=== PATIENT | female | born 1950 | race Caucasian/White ===

== ENCOUNTER → 2017-01-19 | Outpatient (REF) | payer OTHER, MEDICAID ==
[~2017-01-19] MED LIST: ACCU40TA PO; ADV100INH INH; AMBI10TA PO; AMLO10TA PO; BISO10TA PO; CALC500T21 PO; EVIS1TAB PO; FERR325T3 PO; FOLI400T PO; HYDR-3363 PO; HYDR-3716 PO; HYDR25TAB PO; LIPI20TA PO; LOMO2.5T PO; METF500T13 PO; NEXI40CA PO; PAXI40TA10 PO; POTA20TA PO; SERO50TA PO; SYNT50TA PO; TRAV04OPD OD; TRUS1SOL OU; VITA10002 PO; VITA2000 PO
[2017-01-19 16:15] LABS: BASO % 0.4 % (0.0-1.0); EOS # 0.2 10^3/uL (0.0-0.50); EOS % 3.1 % (0.0-3.0); IMMATURE GRANULOCYTE % 0.3 % (0-0); LYMPH # 2.1 10^3/uL (1.5-4.5); LYMPH % 27.9 % (24.0-44.0); MEAN CORPUSCULAR HEMOGLOBIN 26.6 pg (27.0-33.0); MEAN CORPUSCULAR HGB CONC 31.2 g/dl (32.0-36.5); MEAN CORPUSCULAR VOLUME 85.4 fl (80.0-96.0); MONO # 0.6 10^3/uL (0.0-0.8); MONO % 7.8 % (0.0-5.0); NEUTROPHILS # 4.6 10^3/uL (1.8-7.7); NEUTROPHILS % 60.5 % (36.0-66.0); PLATELET COUNT, AUTOMATED 238 10^3/uL (150-450); RED CELL DISTRIBUTION WIDTH 15.2 % (11.5-14.5); WHITE BLOOD COUNT 7.5 10^3/uL (4.0-10.0)
[2017-01-19 16:33] LABS: ALBUMIN 3.6 GM/DL (3.2-5.2); ALBUMIN/GLOBULIN RATIO 0.92 (1.00-1.93); ALKALINE PHOSPHATASE 106 U/L (45-117); ALT/SGPT 15 U/L (12-78); ANION GAP 6 MEQ/L (8-16); AST/SGOT 10 U/L (15-37); BILIRUBIN,TOTAL 0.2 MG/DL (0.2-1.0); BLOOD UREA NITROGEN 15 MG/DL (7-18); CALCIUM LEVEL 9.3 MG/DL (8.8-10.2); CARBON DIOXIDE LEVEL 28 MEQ/L (21-32); CHLORIDE LEVEL 105 MEQ/L (98-107); CHOLESTEROL LEVEL 169 MG/DL (<200); CREATININE FOR GFR 0.75 MG/DL (0.55-1.02); FERRITIN 12 NG/ML (8-252); FREE T4 0.89 NG/DL (0.76-1.46); GLOMERULAR FILTRATION RATE > 60.0 (>45); GLUCOSE, FASTING 94 MG/DL (80-110); PERCENT SATURATION 8.2 % (13.2-45.0); POTASSIUM SERUM 4.3 MEQ/L (3.5-5.1); SODIUM LEVEL 139 MEQ/L (136-145); TOTAL IRON BINDING CAPACITY 390 UG/DL (250-450); TOTAL PROTEIN 7.5 GM/DL (6.4-8.2); TRIGLYCERIDES LEVEL 117 MG/DL (<150)
== END ==
LOC: M SFHCPLAZ 13:07
PROVIDERS: ATTEND Family Medicine
DX: E11.9 Type 2 diabetes mellitus without complications (principal); D50.9 Iron deficiency anemia, unspecified; E03.9 Hypothyroidism, unspecified
CPT/HCPCS: 80053; 80061; 82550; 82728; 83036; 83550; 84439; 84443; 85025; 86140; G0463

== ENCOUNTER → 2017-02-17 | Outpatient (CLI) | payer OTHER, MEDICAID ==
--- NOTE | 2017-02-17 15:32 | REPMRS ---
Patient History The patient states she has not had a clinical breast exam in over a year. Patient is postmenopausal and is nulliparous. Family history of breast cancer in sister and ovarian cancer in paternal aunt. Digital Woman Screen Mammo: February 17, 2017 - Exam #: [id number] Bilateral CC and MLO view(s) were taken. Technologist: Riri Parrish, Technologist Prior study comparison: November 11, 2015, digital woman screen mammo performed at [facility] to [facility]. October 31, 2014, digital woman screen mammo performed at [facility]. FINDINGS: The breast tissue is almost entirely fat. There has been no change in the appearance of the mammogram from the prior studies. There is no interval development of dominant mass, architectural distortion, or clustered microcalcification typical of malignancy. ASSESSMENT: BI-RADS/ACR category 1 mammogram. Negative. Recommendation Routine screening mammogram of both breasts in 1 year (for women over age 40). This mammogram was interpreted with the aid of an FDA-approved computer-aided dectection system. Electronically Signed By: Juan Carlos Jacques MD 02/17/17 [id number]
== END ==
LOC: M WHC 13:35
PROVIDERS: ATTEND Family Medicine
DX: Z12.31 Encounter for screening mammogram for malignant neoplasm of breast (principal)

== ENCOUNTER → 2017-05-05 | Outpatient (CLI) | payer OTHER, MEDICAID | LOC: M PLARAD 10:51 | DX: M47.22 Other spondylosis with radiculopathy, cervical region (principal) | CPT/HCPCS: 72141 ==

== ENCOUNTER → 2017-06-05 | Outpatient (REF) | payer OTHER, MEDICAID ==
[2017-06-05 15:51] LABS: BASO % 0.5 % (0.0-1.0); EOS # 0.2 10^3/uL (0.0-0.50); EOS % 2.3 % (0.0-3.0); HEMATOCRIT 32.6 % (36.0-47.0); HEMOGLOBIN 10.2 g/dl (12.0-16.0); IMMATURE GRANULOCYTE % 0.4 % (0-3.0); LYMPH # 2.1 10^3/uL (1.5-4.5); LYMPH % 26.5 % (24.0-44.0); MEAN CORPUSCULAR HEMOGLOBIN 26.3 pg (27.0-33.0); MEAN CORPUSCULAR HGB CONC 31.3 g/dl (32.0-36.5); MONO # 0.5 10^3/uL (0.0-0.8); MONO % 6.7 % (0.0-5.0); NEUTROPHILS # 5.1 10^3/uL (1.8-7.7); NEUTROPHILS % 63.6 % (36.0-66.0); PLATELET COUNT, AUTOMATED 245 10^3/uL (150-450); RED BLOOD COUNT 3.88 10^6/uL (4.00-5.40); RED CELL DISTRIBUTION WIDTH 15.9 % (11.5-14.5); RETIC HEMOGLOBIN EQUIVALENT 28.3 pg (24-36); RETICULOCYTE # 81.1 10^9/L (17-77); RETICULOCYTE % 2.1 % (0.5-1.5)
[2017-06-05 16:12] LABS: ALBUMIN 3.8 GM/DL (3.2-5.2); ALBUMIN/GLOBULIN RATIO 0.93 (1.00-1.93); ALKALINE PHOSPHATASE 95 U/L (45-117); ALT/SGPT 15 U/L (12-78); ANION GAP 8 MEQ/L (8-16); AST/SGOT 12 U/L (7-37); BILIRUBIN,TOTAL 0.3 MG/DL (0.2-1.0); BLOOD UREA NITROGEN 22 MG/DL (7-18); CALCIUM LEVEL 9.2 MG/DL (8.8-10.2); CARBON DIOXIDE LEVEL 31 MEQ/L (21-32); CHLORIDE LEVEL 101 MEQ/L (98-107); CREATININE FOR GFR 0.87 MG/DL (0.55-1.30); GLOMERULAR FILTRATION RATE > 60.0 (>45); GLUCOSE, FASTING 101 MG/DL (70-100); POTASSIUM SERUM 4.4 MEQ/L (3.5-5.1); SODIUM LEVEL 140 MEQ/L (136-145); TOTAL PROTEIN 7.9 GM/DL (6.4-8.2)
[2017-06-05 16:16] LABS: PTH INTACT 61.7 PG/ML (18.5-88.0)
[2017-06-05 16:22] LABS: ESTIMATED AVERAGE GLUCOSE 137 MG/DL (60-110); HEMOGLOBIN A1c 6.4 %
== END ==
LOC: M SFHCPLAZ 12:14
DX: E55.9 Vitamin D deficiency, unspecified (principal); E11.9 Type 2 diabetes mellitus without complications; D50.9 Iron deficiency anemia, unspecified
CPT/HCPCS: 80053

== ENCOUNTER → 2017-07-26 | Outpatient (REF) | payer OTHER, MEDICAID ==
[2017-07-26 18:49] LABS: BASO % 0.3 % (0.0-1.0); EOS # 0.3 10^3/uL (0.0-0.50); EOS % 2.6 % (0.0-3.0); HEMATOCRIT 32.2 % (36.0-47.0); LYMPH # 1.8 10^3/uL (1.5-4.5); LYMPH % 17.8 % (24.0-44.0); MEAN CORPUSCULAR HEMOGLOBIN 25.7 pg (27.0-33.0); MEAN CORPUSCULAR HGB CONC 31.1 g/dl (32.0-36.5); MEAN CORPUSCULAR VOLUME 82.8 fl (80.0-96.0); MONO # 0.5 10^3/uL (0.0-0.8); MONO % 5.2 % (0.0-5.0); NEUTROPHILS # 7.3 10^3/uL (1.8-7.7); NEUTROPHILS % 73.1 % (36.0-66.0); PLATELET COUNT, AUTOMATED 267 10^3/uL (150-450); RED BLOOD COUNT 3.89 10^6/uL (4.00-5.40); RED CELL DISTRIBUTION WIDTH 15.5 % (11.5-14.5)
[2017-07-26 18:50] LABS: ALBUMIN 3.7 GM/DL (3.2-5.2); ALKALINE PHOSPHATASE 88 U/L (45-117); ALT/SGPT 21 U/L (12-78); ANION GAP 7 MEQ/L (8-16); AST/SGOT 13 U/L (7-37); BILIRUBIN,TOTAL 0.3 MG/DL (0.2-1.0); BLOOD UREA NITROGEN 16 MG/DL (7-18); CALCIUM LEVEL 8.7 MG/DL (8.8-10.2); CARBON DIOXIDE LEVEL 30 MEQ/L (21-32); CHLORIDE LEVEL 103 MEQ/L (98-107); GLOMERULAR FILTRATION RATE > 60.0 (>45); GLUCOSE, FASTING 109 MG/DL (70-100); POTASSIUM SERUM 4.2 MEQ/L (3.5-5.1); RHEUMATOID FACTOR QUANT < 10.0 IU/ML (<15.0); SODIUM LEVEL 140 MEQ/L (136-145); TOTAL PROTEIN 7.8 GM/DL (6.4-8.2)
[2017-07-26 20:09] LABS: ESTIMATED AVERAGE GLUCOSE 140 MG/DL (60-110); HEMOGLOBIN A1c 6.5 %
[2017-07-26 20:59] LABS: ERYTHROCYTE SEDIMENTATION RATE 65 mm/hr (0-30)
[2017-07-27 10:14] LABS: ALBUMIN 3.85 GM/DL (3.29-5.55); ALBUMIN % 49.3 % (55.8-66.1); ALPHA-1-GLOBULIN % 5.9 % (2.9-4.9); ALPHA-1-GLOBULINS 0.46 GM/DL (0.17-0.41); ALPHA-2-GLOBULINS % 15.4 % (7.1-11.8); BETA-1-GLOBULINS 0.53 GM/DL (0.28-0.60); BETA-1-GLOBULINS % 6.8 % (4.7-7.2); BETA-2-GLOBULINS % 6.4 % (3.2-6.5); GAMMA GLOBULIN % 16.2 % (11.1-18.8); GAMMA GLOBULINS 1.26 GM/DL (0.65-1.58)
[2017-07-28 08:02] LABS: VITAMIN B12 LEVEL 313 PG/ML
[2017-07-28 08:03] LABS: FOLATE 10.5 NG/ML
[2017-07-29 00:07] LABS: ANGIOTENSIN 1 CONVERTING ENZYM 41 U/L (14-82); ANTI DOUBLE STRAND-DNA AB <1 IU/mL (0-9); ANTINUCLEAR ANTIBODIES DIRECT Negative (Negative); Lyme Disease IgG/IgM Antibodie <0.91 ISR (0.00-0.90); Lyme Disease IgM Ab Quantitati <0.80 index (0.00-0.79); SJOGREN'S ANTI SS-A <0.2 AI (0.0-0.9); SJOGREN'S ANTI SS-B <0.2 AI (0.0-0.9)
== END ==
LOC: M LABNEURO 11:29
DX: G62.9 Polyneuropathy, unspecified (principal); Z79.899 Other long term (current) drug therapy
CPT/HCPCS: 82746

== ENCOUNTER → 2017-10-02 | Outpatient (REF) | payer OTHER, MEDICAID ==
[2017-10-02 16:13] LABS: BASO % 0.3 % (0.0-1.0); EOS # 0.3 10^3/uL (0.0-0.50); EOS % 3.7 % (0.0-3.0); HEMATOCRIT 30.8 % (36.0-47.0); HEMOGLOBIN 9.5 g/dl (12.0-15.5); IMMATURE GRANULOCYTE % 0.5 % (0-3.0); LYMPH # 2.1 10^3/uL (1.5-4.5); LYMPH % 29.4 % (24.0-44.0); MEAN CORPUSCULAR HEMOGLOBIN 25.3 pg (27.0-33.0); MEAN CORPUSCULAR HGB CONC 30.8 g/dl (32.0-36.5); MEAN CORPUSCULAR VOLUME 81.9 fl (80.0-96.0); MONO # 0.5 10^3/uL (0.0-0.8); NEUTROPHILS # 4.3 10^3/uL (1.8-7.7); NEUTROPHILS % 59.1 % (36.0-66.0); PLATELET COUNT, AUTOMATED 247 10^3/uL (150-450); RED BLOOD COUNT 3.76 10^6/uL (4.00-5.40); RED CELL DISTRIBUTION WIDTH 16.3 % (11.5-14.5); RETIC HEMOGLOBIN EQUIVALENT 25.8 pg (24-36); RETICULOCYTE # 71.4 10^9/L (17-77); RETICULOCYTE % 1.9 % (0.5-1.5); WHITE BLOOD COUNT 7.3 10^3/uL (4.0-10.0)
[2017-10-02 16:27] LABS: HEMATOCRIT 30.8 % (36.0-47.0)
[2017-10-02 16:29] LABS: ESTIMATED AVERAGE GLUCOSE 146 MG/DL (60-110); HEMOGLOBIN A1c 6.7 %; PTH INTACT 54.6 PG/ML (18.5-88.0); TOTAL 25(OH) VITAMIN D 17.3 NG/ML (30.0-100.0); VITAMIN B12 LEVEL 383 PG/ML (247-911)
[2017-10-02 16:38] LABS: ALBUMIN 3.5 GM/DL (3.2-5.2); ALBUMIN/GLOBULIN RATIO 0.85 (1.00-1.93); ALKALINE PHOSPHATASE 95 U/L (45-117); ALT/SGPT 16 U/L (12-78); ANION GAP 7 MEQ/L (8-16); AST/SGOT 14 U/L (7-37); BILIRUBIN,TOTAL 0.3 MG/DL (0.2-1.0); BLOOD UREA NITROGEN 14 MG/DL (7-18); C REACTIVE PROTEIN QUANTITATIV < 0.30 MG/DL (0.00-0.30); CALCIUM LEVEL 8.8 MG/DL (8.8-10.2); CARBON DIOXIDE LEVEL 31 MEQ/L (21-32); CHLORIDE LEVEL 104 MEQ/L (98-107); CHOLESTEROL LEVEL 169 MG/DL (<200); CPK CREATINE PHOSPHOKINASE 258 U/L (26-192); CREATININE FOR GFR 0.82 MG/DL (0.55-1.30); FREE T4 0.81 NG/DL (0.76-1.46); GLOMERULAR FILTRATION RATE > 60.0 (>45); GLUCOSE, FASTING 89 MG/DL (70-100); HDL CHOLESTEROL 71 MG/DL (>40); LDL CHOLESTEROL 69.8 MG/DL (<100); NON-HDL-C 98 MG/DL; POTASSIUM SERUM 4.5 MEQ/L (3.5-5.1); SODIUM LEVEL 142 MEQ/L (136-145); TOTAL PROTEIN 7.6 GM/DL (6.4-8.2); TRIGLYCERIDES LEVEL 141 MG/DL (<150)
[2017-10-03 10:15] LABS: PRETREATED FOLATE FOR RBCFOL 7.7 NG/ML
[2017-10-04 14:47] LABS: INSULIN LEVEL 12.9 uIU/mL (2.6-24.9)
== END ==
LOC: M SFHCPLAZ 11:28
DX: E03.9 Hypothyroidism, unspecified (principal); E11.9 Type 2 diabetes mellitus without complications; E55.9 Vitamin D deficiency, unspecified; E78.5 Hyperlipidemia, unspecified; D50.9 Iron deficiency anemia, unspecified; E53.8 Deficiency of other specified B group vitamins; Z79.899 Other long term (current) drug therapy
CPT/HCPCS: 82550

== ENCOUNTER → 2017-10-17 | Outpatient (CLI) | payer OTHER, MEDICAID ==
[~2017-10-17] MED LIST changes: -ACCU40TA PO; -ADV100INH INH; -AMBI10TA PO; -AMLO10TA PO; -BISO10TA PO; -CALC500T21 PO; -EVIS1TAB PO; -FERR325T3 PO; -FOLI400T PO; -HYDR-3363 PO; -HYDR-3716 PO; -HYDR25TAB PO; -LIPI20TA PO; -LOMO2.5T PO; -METF500T13 PO; +MIDAZOLAM INJ 2 MG/2 ML VIAL (J2250) As Ordered; -NEXI40CA PO; -PAXI40TA10 PO; -POTA20TA PO; -SERO50TA PO; -SYNT50TA PO; -TRAV04OPD OD; -TRUS1SOL OU; -VITA10002 PO; -VITA2000 PO; +fentaNYL 100 MCG/2 ML INJECTION (J3010) As Ordered
[2017-10-17] MEDS: hydroCHLOROthiazide 25 MG TAB PO (11:00)
[2017-10-17] MEDS: BISOPROLOL FUMARATE 5 MG TAB PO (11:00)
== END ==
LOC: M SDC 08:59
DX: M48.02 Spinal stenosis, cervical region (principal)
CPT/HCPCS: J2250

== ENCOUNTER 2017-12-22 14:20 | Inpatient (IN) | payer OTHER, MEDICAID ==
[2017-12-22 15:27] LABS: BASO % 0.1 % (0.0-1.0); HEMATOCRIT 28.1 % (36.0-47.0); IMMATURE GRANULOCYTE % 1.1 % (0-3.0); LYMPH # 1.2 10^3/uL (1.5-4.5); LYMPH % 9.2 % (24.0-44.0); MEAN CORPUSCULAR HEMOGLOBIN 25.7 pg (27.0-33.0); MEAN CORPUSCULAR VOLUME 80.3 fl (80.0-96.0); MONO # 1.1 10^3/uL (0.0-0.8); MONO % 8.1 % (0.0-5.0); NEUTROPHILS # 10.8 10^3/uL (1.8-7.7); NEUTROPHILS % 81.5 % (36.0-66.0); PLATELET COUNT, AUTOMATED 207 10^3/uL (150-450); RED CELL DISTRIBUTION WIDTH 16.6 % (11.5-14.5); WHITE BLOOD COUNT 13.3 10^3/uL (4.0-10.0)
[2017-12-22 15:55] LABS: LACTIC ACID SEPSIS PROTOCOL 1.3 MMOL/L (0.4-2.0)
[2017-12-22 15:55] LABS: ALBUMIN 3.4 GM/DL (3.2-5.2); ALBUMIN/GLOBULIN RATIO 0.79 (1.00-1.93); ALKALINE PHOSPHATASE 78 U/L (45-117); ALT/SGPT 23 U/L (12-78); ANION GAP 10 MEQ/L (8-16); AST/SGOT 42 U/L (7-37); BILIRUBIN,DIRECT 0.1 MG/DL (0.0-0.2); BILIRUBIN,TOTAL 0.5 MG/DL (0.2-1.0); BLOOD UREA NITROGEN 16 MG/DL (7-18); CALCIUM LEVEL 8.8 MG/DL (8.8-10.2); CARBON DIOXIDE LEVEL 25 MEQ/L (21-32); CHLORIDE LEVEL 100 MEQ/L (98-107); CREATININE FOR GFR 0.92 MG/DL (0.55-1.30); GLOMERULAR FILTRATION RATE > 60.0 (>45); GLUCOSE, FASTING 115 MG/DL (70-100); POTASSIUM SERUM 3.7 MEQ/L (3.5-5.1); SODIUM LEVEL 135 MEQ/L (136-145); TOTAL PROTEIN 7.7 GM/DL (6.4-8.2)
[2017-12-22] MEDS: VANCOMYCIN HCL 1,000 MG, VIAL MATE ADAPTER 1 EACH in D5W 250 ML IV (18:30)
[2017-12-22 19:24] LABS: ERYTHROCYTE SEDIMENTATION RATE 119 mm/hr (0-30)
[2017-12-22] MEDS ORDERED: GLUCAGON FOR INJ 1 MG VIAL (J1610) SC (20:00)
[2017-12-22] MEDS ORDERED: DEXTROSE 50% 50 ML SYRINGE IV (20:00)
[2017-12-22] MEDS ORDERED: GLUCOSE 4 GM CHEW TABLET PO (20:00)
[2017-12-22] MEDS ORDERED: PILL CRUSHER/CUTTER 1 EACH XX (20:15)
[2017-12-22] MEDS: ANEXSIA, NORCO 7.5MG/325MG TABLET(HYDROCODONE/APAP) PO (21:51)
[2017-12-22 22:29] LABS: BEDSIDE GLUCOSE 126 MG/DL (80-115)
[2017-12-22] MEDS: zolPIDEM TARTRATE 10MG TAB PO (23:33)
[2017-12-22] MEDS: amLODIPine 10 MG TAB PO (23:33)
[2017-12-22] MEDS: BISOPROLOL FUMARATE 10 MG TAB PO (23:34)
[2017-12-22] MEDS: hydrOXYzine 25 MG TAB PO (23:34)
[2017-12-22] MEDS: CALCIUM CARBONATE 500 MG CHEW U/D PO (23:34)
[2017-12-22] MEDS: ATORVASTATIN 20 MG TAB PO (23:34)
[2017-12-22] MEDS: QUEtiapine FUMARATE 50 MG TAB PO (23:34)
[2017-12-22] MEDS: LATANOPROST 0.005% OPHTH SOLN 2.5 ML OU (23:35)
[2017-12-22] MEDS: QUINAPRIL 20 MG TAB PO (23:35)
[2017-12-23] MEDS ORDERED: GLUCAGON FOR INJ 1 MG VIAL (J1610) SC (00:30)
[2017-12-23] MEDS ORDERED: GLUCOSE 4 GM CHEW TABLET PO (00:30)
[2017-12-23] MEDS ORDERED: DEXTROSE 50% 50 ML SYRINGE IV (00:30)
[2017-12-23] MEDS: ceFAZolin SOD 1 GM in D5W MINI-BAG PLUS 50 ML IV ×3 (01:55→18:23)
[2017-12-23] MEDS: NYSTATIN 100,000 UNITS/GM TOPICAL PWD 15 GM TOP ×3 (02:55→22:13)
[2017-12-23] MEDS: LEVOTHYROXINE 50MCG TABLET (0.05MG) PO (06:01)
[2017-12-23 07:01] LABS: HEMATOCRIT 27.8 % (36.0-47.0); HEMOGLOBIN 8.8 g/dl (12.0-15.5); MEAN CORPUSCULAR HEMOGLOBIN 25.4 pg (27.0-33.0); MEAN CORPUSCULAR HGB CONC 31.7 g/dl (32.0-36.5); MEAN CORPUSCULAR VOLUME 80.1 fl (80.0-96.0); PLATELET COUNT, AUTOMATED 181 10^3/uL (150-450); RED BLOOD COUNT 3.47 10^6/uL (4.00-5.40); RED CELL DISTRIBUTION WIDTH 16.8 % (11.5-14.5); WHITE BLOOD COUNT 10.5 10^3/uL (4.0-10.0)
[2017-12-23 07:12] LABS: ANION GAP 9 MEQ/L (8-16); BLOOD UREA NITROGEN 16 MG/DL (7-18); CALCIUM LEVEL 8.2 MG/DL (8.8-10.2); CARBON DIOXIDE LEVEL 24 MEQ/L (21-32); CHLORIDE LEVEL 102 MEQ/L (98-107); CREATININE FOR GFR 0.98 MG/DL (0.55-1.30); GLOMERULAR FILTRATION RATE > 60.0 (>45); GLUCOSE, FASTING 89 MG/DL (70-100); POTASSIUM SERUM 3.5 MEQ/L (3.5-5.1); SODIUM LEVEL 135 MEQ/L (136-145)
[2017-12-23] MEDS ORDERED: HumaLOG INSULIN (NovoLOG) PER UNIT SC (07:30)
[2017-12-23] MEDS: HumaLOG INSULIN (NovoLOG) PER UNIT SC ×4 (08:25→21:00)
[2017-12-23] MEDS: PARoxetine 20 MG TAB PO (10:03)
[2017-12-23] MEDS: CALCIUM CARBONATE 500 MG CHEW U/D PO ×3 (10:03→22:11)
[2017-12-23] MEDS: FOLIC ACID 1 MG TAB PO (10:03)
[2017-12-23] MEDS: PANTOPRAZOLE 40MG TAB (PROTONIX) PO (10:03)
[2017-12-23] MEDS: ANEXSIA, NORCO 7.5MG/325MG TABLET(HYDROCODONE/APAP) PO ×2 (10:04→22:12)
[2017-12-23] MEDS: ENOXAPARIN 40 MG/0.4 ML SYRINGE (J1650) SC (10:05)
[2017-12-23] MEDS: PREVNAR 13 VACCINE SYRINGE (CPT CODE:90670) IM (10:06)
[2017-12-23] MEDS: INFLUENZA VIRUS VACCINE HIGH DOSE 0.5 ML SYRINGE (90662) IM (10:07)
[2017-12-23] MEDS: hydroCHLOROthiazide 25 MG TAB PO (10:07)
[2017-12-23] MEDS: FERROUS SULFATE 325MG TAB PO (10:07)
[2017-12-23] MEDS: CYANOCOBALAMIN 500 MCG TAB PO (10:08)
[2017-12-23] MEDS: VITAMIN D 1,000 INTERNATIONAL UNITS TABLET PO (10:08)
[2017-12-23 11:50] LABS: BEDSIDE GLUCOSE 126 MG/DL (80-115)
[2017-12-23] MEDS: QUINAPRIL 20 MG TAB PO ×2 (13:03→22:10)
[2017-12-23] MEDS: ACETAMINOPHEN TAB 650MG DOSE (2X325MG) PO (15:11)
[2017-12-23 16:40] LABS: BEDSIDE GLUCOSE 134 MG/DL (80-115)
[2017-12-23] MEDS: zolPIDEM TARTRATE 10MG TAB PO (22:11)
[2017-12-23] MEDS: hydrOXYzine 25 MG TAB PO (22:11)
[2017-12-23] MEDS: ATORVASTATIN 20 MG TAB PO (22:11)
[2017-12-23] MEDS: amLODIPine 10 MG TAB PO (22:11)
[2017-12-23] MEDS: BISOPROLOL FUMARATE 10 MG TAB PO (22:12)
[2017-12-23] MEDS: LATANOPROST 0.005% OPHTH SOLN 2.5 ML OU (22:12)
[2017-12-23] MEDS: QUEtiapine FUMARATE 50 MG TAB PO (22:12)
[2017-12-23 22:20] LABS: BEDSIDE GLUCOSE 129 MG/DL (80-115)
[2017-12-24] MEDS: ceFAZolin SOD 1 GM in D5W MINI-BAG PLUS 50 ML IV ×3 (02:53→18:39)
[2017-12-24] MEDS: LEVOTHYROXINE 50MCG TABLET (0.05MG) PO (06:05)
[2017-12-24 06:54] LABS: HEMATOCRIT 27.7 % (36.0-47.0); HEMOGLOBIN 8.4 g/dl (12.0-15.5); MEAN CORPUSCULAR HEMOGLOBIN 24.7 pg (27.0-33.0); MEAN CORPUSCULAR HGB CONC 30.3 g/dl (32.0-36.5); MEAN CORPUSCULAR VOLUME 81.5 fl (80.0-96.0); PLATELET COUNT, AUTOMATED 210 10^3/uL (150-450); WHITE BLOOD COUNT 7.3 10^3/uL (4.0-10.0)
[2017-12-24 07:01] LABS: ANION GAP 6 MEQ/L (8-16); BLOOD UREA NITROGEN 22 MG/DL (7-18); CALCIUM LEVEL 8.6 MG/DL (8.8-10.2); CARBON DIOXIDE LEVEL 28 MEQ/L (21-32); CHLORIDE LEVEL 104 MEQ/L (98-107); CREATININE FOR GFR 1.07 MG/DL (0.55-1.30); GLOMERULAR FILTRATION RATE 54.6 (>45); GLUCOSE, FASTING 109 MG/DL (70-100); POTASSIUM SERUM 3.5 MEQ/L (3.5-5.1); SODIUM LEVEL 138 MEQ/L (136-145)
[2017-12-24] MEDS: HumaLOG INSULIN (NovoLOG) PER UNIT SC ×4 (08:08→21:00)
[2017-12-24] MEDS: CALCIUM CARBONATE 500 MG CHEW U/D PO ×3 (09:37→21:28)
[2017-12-24] MEDS: PARoxetine 20 MG TAB PO (09:37)
[2017-12-24] MEDS: ANEXSIA, NORCO 7.5MG/325MG TABLET(HYDROCODONE/APAP) PO ×3 (09:44→21:40)
[2017-12-24] MEDS: QUINAPRIL 20 MG TAB PO ×2 (09:47→21:28)
[2017-12-24] MEDS: PANTOPRAZOLE 40MG TAB (PROTONIX) PO (09:48)
[2017-12-24] MEDS: FOLIC ACID 1 MG TAB PO (09:48)
[2017-12-24] MEDS: ENOXAPARIN 40 MG/0.4 ML SYRINGE (J1650) SC (09:49)
[2017-12-24] MEDS: NYSTATIN 100,000 UNITS/GM TOPICAL PWD 15 GM TOP ×2 (09:49→21:00)
[2017-12-24] MEDS: hydroCHLOROthiazide 25 MG TAB PO (09:50)
[2017-12-24] MEDS: VITAMIN D 1,000 INTERNATIONAL UNITS TABLET PO (09:50)
[2017-12-24] MEDS: CYANOCOBALAMIN 500 MCG TAB PO (09:50)
[2017-12-24 16:41] LABS: BEDSIDE GLUCOSE 101 MG/DL (80-115)
[2017-12-24 16:41] LABS: BEDSIDE GLUCOSE 129 MG/DL (80-115)
[2017-12-24 19:57] LABS: BEDSIDE GLUCOSE 117 MG/DL (80-115)
[2017-12-24] MEDS: zolPIDEM TARTRATE 10MG TAB PO (21:28)
[2017-12-24] MEDS: ATORVASTATIN 20 MG TAB PO (21:28)
[2017-12-24] MEDS: QUEtiapine FUMARATE 50 MG TAB PO (21:28)
[2017-12-24] MEDS: hydrOXYzine 25 MG TAB PO (21:29)
[2017-12-24] MEDS: BISOPROLOL FUMARATE 10 MG TAB PO (21:29)
[2017-12-24] MEDS: amLODIPine 10 MG TAB PO (21:29)
[2017-12-24] MEDS: LATANOPROST 0.005% OPHTH SOLN 2.5 ML OU (21:30)
[2017-12-25] MEDS: cefTRIAXone SOD 1 GM VIAL (J0696) IM (02:06)
[2017-12-25] MEDS: LEVOTHYROXINE 50MCG TABLET (0.05MG) PO (05:26)
[2017-12-25 06:45] LABS: HEMATOCRIT 24.2 % (36.0-47.0); HEMOGLOBIN 7.5 g/dl (12.0-15.5); MEAN CORPUSCULAR HEMOGLOBIN 25.5 pg (27.0-33.0); MEAN CORPUSCULAR VOLUME 82.3 fl (80.0-96.0); PLATELET COUNT, AUTOMATED 193 10^3/uL (150-450); RED BLOOD COUNT 2.94 10^6/uL (4.00-5.40); RED CELL DISTRIBUTION WIDTH 17.1 % (11.5-14.5); WHITE BLOOD COUNT 6.1 10^3/uL (4.0-10.0)
[2017-12-25 07:04] LABS: ANION GAP 7 MEQ/L (8-16); BLOOD UREA NITROGEN 21 MG/DL (7-18); CALCIUM LEVEL 8.1 MG/DL (8.8-10.2); CARBON DIOXIDE LEVEL 28 MEQ/L (21-32); CHLORIDE LEVEL 106 MEQ/L (98-107); GLOMERULAR FILTRATION RATE > 60.0 (>45); GLUCOSE, FASTING 89 MG/DL (70-100); POTASSIUM SERUM 3.9 MEQ/L (3.5-5.1); SODIUM LEVEL 141 MEQ/L (136-145)
[2017-12-25] MEDS: HumaLOG INSULIN (NovoLOG) PER UNIT SC ×4 (07:30→21:00)
[2017-12-25] MEDS: FERROUS SULFATE 325MG TAB PO (09:00)
[2017-12-25] MEDS: hydroCHLOROthiazide 25 MG TAB PO (09:00)
[2017-12-25] MEDS: CYANOCOBALAMIN 500 MCG TAB PO (09:00)
[2017-12-25] MEDS: VITAMIN D 1,000 INTERNATIONAL UNITS TABLET PO (09:00)
[2017-12-25] MEDS: PARoxetine 20 MG TAB PO (09:55)
[2017-12-25] MEDS: ENOXAPARIN 40 MG/0.4 ML SYRINGE (J1650) SC (09:55)
[2017-12-25] MEDS: QUINAPRIL 20 MG TAB PO ×2 (09:56→21:50)
[2017-12-25] MEDS: FOLIC ACID 1 MG TAB PO (09:57)
[2017-12-25] MEDS: CALCIUM CARBONATE 500 MG CHEW U/D PO ×3 (09:57→21:51)
[2017-12-25] MEDS: PANTOPRAZOLE 40MG TAB (PROTONIX) PO (09:58)
[2017-12-25] MEDS: NYSTATIN 100,000 UNITS/GM TOPICAL PWD 15 GM TOP ×2 (10:00→21:00)
[2017-12-25 11:22] LABS: BEDSIDE GLUCOSE 103 MG/DL (80-115)
[2017-12-25] MEDS ORDERED: LIDOCAINE 1% MDV 20ML VIAL As Ordered (14:52)
[2017-12-25] MEDS ORDERED: ISOVUE-300 61% 50ML VIAL (Q9967) As Ordered (15:31)
[2017-12-25] MEDS: ACETAMINOPHEN TAB 650MG DOSE (2X325MG) PO (16:52)
[2017-12-25] MEDS ORDERED: SODIUM CHLORIDE 0.9% INJ 10 ML SYR IV (17:00)
[2017-12-25 17:08] LABS: BEDSIDE GLUCOSE 97 MG/DL (80-115)
[2017-12-25] MEDS: SODIUM CHLORIDE 0.9% INJ 10 ML SYR IV (17:31)
[2017-12-25] MEDS: ANEXSIA, NORCO 7.5MG/325MG TABLET(HYDROCODONE/APAP) PO (18:55)
[2017-12-25 21:12] LABS: BEDSIDE GLUCOSE 146 MG/DL (80-115)
[2017-12-25] MEDS: zolPIDEM TARTRATE 10MG TAB PO (21:45)
[2017-12-25] MEDS: ATORVASTATIN 20 MG TAB PO (21:50)
[2017-12-25] MEDS: amLODIPine 10 MG TAB PO (21:50)
[2017-12-25] MEDS: hydrOXYzine 25 MG TAB PO (21:50)
[2017-12-25] MEDS: QUEtiapine FUMARATE 50 MG TAB PO (21:50)
[2017-12-25] MEDS: BISOPROLOL FUMARATE 10 MG TAB PO (21:51)
[2017-12-25] MEDS: LATANOPROST 0.005% OPHTH SOLN 2.5 ML OU (21:51)
[2017-12-25 21:52] LABS: IMMEDIATE SPIN CROSSMATCH 1 2
[2017-12-26] MEDS: cefTRIAXone SOD 1 GM in D5W MINI-BAG PLUS 50 ML IV (01:18)
[2017-12-26] MEDS: SODIUM CHLORIDE 0.9% INJ 10 ML SYR IV ×2 (05:03→18:02)
[2017-12-26] MEDS: LEVOTHYROXINE 50MCG TABLET (0.05MG) PO (05:03)
[2017-12-26 06:52] LABS: HEMATOCRIT 34.5 % (36.0-47.0); MEAN CORPUSCULAR HGB CONC 31.6 g/dl (32.0-36.5); MEAN CORPUSCULAR VOLUME 82.1 fl (80.0-96.0); PLATELET COUNT, AUTOMATED 242 10^3/uL (150-450); RED CELL DISTRIBUTION WIDTH 15.8 % (11.5-14.5); WHITE BLOOD COUNT 8.7 10^3/uL (4.0-10.0)
[2017-12-26] MEDS: ANEXSIA, NORCO 7.5MG/325MG TABLET(HYDROCODONE/APAP) PO ×2 (06:52→18:02)
[2017-12-26 06:55] LABS: HEMOGLOBIN 10.9 g/dl (12.0-15.5)
[2017-12-26 07:02] LABS: ANION GAP 8 MEQ/L (8-16); BLOOD UREA NITROGEN 15 MG/DL (7-18); CALCIUM LEVEL 9.1 MG/DL (8.8-10.2); CARBON DIOXIDE LEVEL 28 MEQ/L (21-32); CHLORIDE LEVEL 104 MEQ/L (98-107); CREATININE FOR GFR 0.68 MG/DL (0.55-1.30); GLOMERULAR FILTRATION RATE > 60.0 (>45); GLUCOSE, FASTING 102 MG/DL (70-100); POTASSIUM SERUM 4.3 MEQ/L (3.5-5.1); SODIUM LEVEL 140 MEQ/L (136-145)
[2017-12-26 07:11] LABS: C REACTIVE PROTEIN QUANTITATIV 6.87 MG/DL (0.00-0.30)
[2017-12-26] MEDS: HumaLOG INSULIN (NovoLOG) PER UNIT SC ×4 (07:30→21:00)
[2017-12-26] MEDS: hydroCHLOROthiazide 25 MG TAB PO ×2 (09:00→09:37)
[2017-12-26] MEDS: VITAMIN D 1,000 INTERNATIONAL UNITS TABLET PO (09:00)
[2017-12-26] MEDS: CYANOCOBALAMIN 500 MCG TAB PO (09:00)
[2017-12-26] MEDS: FOLIC ACID 1 MG TAB PO (09:36)
[2017-12-26] MEDS: PARoxetine 20 MG TAB PO (09:37)
[2017-12-26] MEDS: CALCIUM CARBONATE 500 MG CHEW U/D PO ×3 (09:37→22:04)
[2017-12-26] MEDS: PANTOPRAZOLE 40MG TAB (PROTONIX) PO (09:37)
[2017-12-26] MEDS: QUINAPRIL 20 MG TAB PO ×2 (09:38→22:05)
[2017-12-26] MEDS: NYSTATIN 100,000 UNITS/GM TOPICAL PWD 15 GM TOP ×2 (09:39→22:07)
[2017-12-26 12:00] LABS: BEDSIDE GLUCOSE 103 MG/DL (80-115)
[2017-12-26 16:51] LABS: BEDSIDE GLUCOSE 113 MG/DL (80-115)
[2017-12-26 19:41] LABS: BEDSIDE GLUCOSE 148 MG/DL (80-115)
[2017-12-26] MEDS: hydrOXYzine 25 MG TAB PO (22:04)
[2017-12-26] MEDS: BISOPROLOL FUMARATE 10 MG TAB PO (22:05)
[2017-12-26] MEDS: ATORVASTATIN 20 MG TAB PO (22:05)
[2017-12-26] MEDS: QUEtiapine FUMARATE 50 MG TAB PO (22:06)
[2017-12-26] MEDS: amLODIPine 10 MG TAB PO (22:06)
[2017-12-26] MEDS: zolPIDEM TARTRATE 10MG TAB PO (22:06)
[2017-12-26] MEDS: LATANOPROST 0.005% OPHTH SOLN 2.5 ML OU (22:07)
[2017-12-27] MEDS: cefTRIAXone SOD 1 GM in D5W MINI-BAG PLUS 50 ML IV (02:16)
[2017-12-27] MEDS: SODIUM CHLORIDE 0.9% INJ 10 ML SYR IV (06:10)
[2017-12-27] MEDS: LEVOTHYROXINE 50MCG TABLET (0.05MG) PO (06:10)
[2017-12-27] MEDS: HumaLOG INSULIN (NovoLOG) PER UNIT SC ×4 (07:30→21:00)
[2017-12-27 07:58] LABS: BEDSIDE GLUCOSE 108 MG/DL (80-115)
[2017-12-27] MEDS: FERROUS SULFATE 325MG TAB PO (09:00)
[2017-12-27] MEDS: hydroCHLOROthiazide 25 MG TAB PO (09:00)
[2017-12-27] MEDS: CYANOCOBALAMIN 500 MCG TAB PO (09:00)
[2017-12-27] MEDS: VITAMIN D 1,000 INTERNATIONAL UNITS TABLET PO (09:00)
[2017-12-27] MEDS: PANTOPRAZOLE 40MG TAB (PROTONIX) PO (10:17)
[2017-12-27] MEDS: PARoxetine 20 MG TAB PO (10:17)
[2017-12-27] MEDS: QUINAPRIL 20 MG TAB PO ×2 (10:17→21:59)
[2017-12-27] MEDS: CALCIUM CARBONATE 500 MG CHEW U/D PO ×3 (10:18→21:58)
[2017-12-27] MEDS: FOLIC ACID 1 MG TAB PO (10:18)
[2017-12-27] MEDS: NYSTATIN 100,000 UNITS/GM TOPICAL PWD 15 GM TOP ×2 (10:21→21:56)
[2017-12-27] MEDS: ACETAMINOPHEN TAB 650MG DOSE (2X325MG) PO (11:25)
[2017-12-27] MEDS: CEPHALEXIN SUSP POWDER 250MG/5ML BTL 100ML PO ×3 (13:45→21:57)
[2017-12-27] MEDS: ACETAMINOPHEN 325 MG/10.15 ML UDC PO (15:01)
[2017-12-27 17:09] LABS: BEDSIDE GLUCOSE 152 MG/DL (80-115)
[2017-12-27] MEDS: EUCERIN 120GM CREAM TOP ×2 (17:17→21:57)
[2017-12-27] MEDS: metFORMIN (GLUCOPHAGE) 500 MG TAB PO (17:20)
[2017-12-27 20:33] LABS: BEDSIDE GLUCOSE 135 MG/DL (80-115)
[2017-12-27] MEDS: LATANOPROST 0.005% OPHTH SOLN 2.5 ML OU (21:56)
[2017-12-27] MEDS: BISOPROLOL FUMARATE 10 MG TAB PO (21:58)
[2017-12-27] MEDS: QUEtiapine FUMARATE 50 MG TAB PO (21:58)
[2017-12-27] MEDS: amLODIPine 10 MG TAB PO (21:58)
[2017-12-27] MEDS: hydrOXYzine 25 MG TAB PO (21:58)
[2017-12-27] MEDS: ATORVASTATIN 20 MG TAB PO (21:58)
[2017-12-27] MEDS: zolPIDEM TARTRATE 10MG TAB PO (21:59)
[2017-12-28] MEDS: LEVOTHYROXINE 50MCG TABLET (0.05MG) PO (05:55)
[2017-12-28 06:49] LABS: HEMATOCRIT 37.1 % (36.0-47.0); HEMOGLOBIN 11.8 g/dl (12.0-15.5); MEAN CORPUSCULAR HGB CONC 31.8 g/dl (32.0-36.5); MEAN CORPUSCULAR VOLUME 81.9 fl (80.0-96.0); PLATELET COUNT, AUTOMATED 276 10^3/uL (150-450); RED BLOOD COUNT 4.53 10^6/uL (4.00-5.40); RED CELL DISTRIBUTION WIDTH 15.9 % (11.5-14.5); WHITE BLOOD COUNT 10.2 10^3/uL (4.0-10.0)
[2017-12-28 07:15] LABS: ANION GAP 11 MEQ/L (8-16); BLOOD UREA NITROGEN 12 MG/DL (7-18); CALCIUM LEVEL 9.9 MG/DL (8.8-10.2); CARBON DIOXIDE LEVEL 28 MEQ/L (21-32); CHLORIDE LEVEL 102 MEQ/L (98-107); CREATININE FOR GFR 0.61 MG/DL (0.55-1.30); GLOMERULAR FILTRATION RATE > 60.0 (>45); GLUCOSE, FASTING 109 MG/DL (70-100); POTASSIUM SERUM 3.8 MEQ/L (3.5-5.1); SODIUM LEVEL 141 MEQ/L (136-145)
[2017-12-28] MEDS: HumaLOG INSULIN (NovoLOG) PER UNIT SC ×4 (07:30→20:47)
[2017-12-28] MEDS: PARoxetine 20 MG TAB PO (08:24)
[2017-12-28] MEDS: CALCIUM CARBONATE 500 MG CHEW U/D PO ×3 (08:25→20:44)
[2017-12-28] MEDS: PANTOPRAZOLE 40MG TAB (PROTONIX) PO (08:25)
[2017-12-28] MEDS: QUINAPRIL 20 MG TAB PO ×2 (08:25→20:44)
[2017-12-28] MEDS: metFORMIN (GLUCOPHAGE) 500 MG TAB PO ×2 (08:26→17:47)
[2017-12-28] MEDS: FOLIC ACID 1 MG TAB PO (08:26)
[2017-12-28] MEDS: EUCERIN 120GM CREAM TOP ×2 (08:27→20:46)
[2017-12-28] MEDS: CEPHALEXIN SUSP POWDER 250MG/5ML BTL 100ML PO ×4 (08:27→20:47)
[2017-12-28] MEDS: NYSTATIN 100,000 UNITS/GM TOPICAL PWD 15 GM TOP ×2 (08:27→20:46)
[2017-12-28] MEDS: VITAMIN D 1,000 INTERNATIONAL UNITS TABLET PO (08:28)
[2017-12-28] MEDS: hydroCHLOROthiazide 25 MG TAB PO (08:28)
[2017-12-28] MEDS: CYANOCOBALAMIN 500 MCG TAB PO (08:28)
[2017-12-28] MEDS ORDERED: SODIUM CHLORIDE 0.9% INJ 10 ML SYR IV ×2 (10:30→18:00)
[2017-12-28 11:59] LABS: BEDSIDE GLUCOSE 117 MG/DL (80-115)
[2017-12-28] MEDS: CHOLESTYRAMINE 4 GM PWD PKT PO ×2 (14:27→17:46)
[2017-12-28] MEDS: CEPACOL LOZENGE PO ×2 (15:23→17:47)
[2017-12-28] MEDS: ONDANSETRON 4 MG TAB (S0181) PO (15:23)
[2017-12-28 16:59] LABS: BEDSIDE GLUCOSE 116 MG/DL (80-115)
[2017-12-28 19:35] LABS: BEDSIDE GLUCOSE 132 MG/DL (80-115)
[2017-12-28] MEDS: hydrOXYzine 25 MG TAB PO (20:44)
[2017-12-28] MEDS: amLODIPine 10 MG TAB PO (20:45)
[2017-12-28] MEDS: QUEtiapine FUMARATE 50 MG TAB PO (20:45)
[2017-12-28] MEDS: zolPIDEM TARTRATE 10MG TAB PO (20:45)
[2017-12-28] MEDS: ATORVASTATIN 20 MG TAB PO (20:45)
[2017-12-28] MEDS: BISOPROLOL FUMARATE 10 MG TAB PO (20:45)
[2017-12-28] MEDS: LATANOPROST 0.005% OPHTH SOLN 2.5 ML OU (20:48)
[2017-12-28] MEDS: ACETAMINOPHEN 325 MG/10.15 ML UDC PO (20:54)
[2017-12-29] MEDS: ANEXSIA, NORCO 7.5MG/325MG TABLET(HYDROCODONE/APAP) PO ×2 (04:31→18:54)
[2017-12-29] MEDS: LEVOTHYROXINE 50MCG TABLET (0.05MG) PO (05:41)
[2017-12-29 07:05] LABS: ANION GAP 8 MEQ/L (8-16); BLOOD UREA NITROGEN 14 MG/DL (7-18); CALCIUM LEVEL 8.8 MG/DL (8.8-10.2); CARBON DIOXIDE LEVEL 21 MEQ/L (21-32); CHLORIDE LEVEL 105 MEQ/L (98-107); CREATININE FOR GFR 0.66 MG/DL (0.55-1.30); GLOMERULAR FILTRATION RATE > 60.0 (>45); GLUCOSE, FASTING 104 MG/DL (70-100); SODIUM LEVEL 134 MEQ/L (136-145)
[2017-12-29] MEDS: HumaLOG INSULIN (NovoLOG) PER UNIT SC ×4 (07:30→21:28)
[2017-12-29] MEDS: FERROUS SULFATE 325MG TAB PO (08:05)
[2017-12-29] MEDS: VITAMIN D 1,000 INTERNATIONAL UNITS TABLET PO (08:05)
[2017-12-29] MEDS: CYANOCOBALAMIN 500 MCG TAB PO (08:05)
[2017-12-29] MEDS: hydroCHLOROthiazide 25 MG TAB PO (08:06)
[2017-12-29] MEDS: EUCERIN 120GM CREAM TOP ×2 (09:00→20:52)
[2017-12-29] MEDS: FOLIC ACID 1 MG TAB PO (09:00)
[2017-12-29] MEDS: NYSTATIN 100,000 UNITS/GM TOPICAL PWD 15 GM TOP ×2 (09:00→20:53)
[2017-12-29] MEDS: QUINAPRIL 20 MG TAB PO ×2 (09:13→20:50)
[2017-12-29] MEDS: PARoxetine 20 MG TAB PO (09:13)
[2017-12-29] MEDS: metFORMIN (GLUCOPHAGE) 500 MG TAB PO ×2 (09:13→16:18)
[2017-12-29] MEDS: CALCIUM CARBONATE 500 MG CHEW U/D PO ×3 (09:13→20:50)
[2017-12-29] MEDS: PANTOPRAZOLE 40MG TAB (PROTONIX) PO (09:13)
[2017-12-29] MEDS: CEPHALEXIN SUSP POWDER 250MG/5ML BTL 100ML PO ×4 (09:14→20:49)
[2017-12-29 11:40] LABS: BEDSIDE GLUCOSE 97 MG/DL (80-115)
[2017-12-29] MEDS: CHOLESTYRAMINE 4 GM PWD PKT PO ×2 (12:00→16:18)
[2017-12-29 19:39] LABS: BEDSIDE GLUCOSE 126 MG/DL (80-115)
[2017-12-29] MEDS: CEPACOL LOZENGE PO (20:49)
[2017-12-29] MEDS: amLODIPine 10 MG TAB PO (20:49)
[2017-12-29] MEDS: hydrOXYzine 25 MG TAB PO (20:49)
[2017-12-29] MEDS: ATORVASTATIN 20 MG TAB PO (20:50)
[2017-12-29] MEDS: QUEtiapine FUMARATE 50 MG TAB PO (20:50)
[2017-12-29] MEDS: zolPIDEM TARTRATE 10MG TAB PO (20:50)
[2017-12-29] MEDS: BISOPROLOL FUMARATE 10 MG TAB PO (20:51)
[2017-12-29] MEDS: LATANOPROST 0.005% OPHTH SOLN 2.5 ML OU (20:53)
[2017-12-30] MEDS: LEVOTHYROXINE 50MCG TABLET (0.05MG) PO (06:05)
[2017-12-30 06:07] LABS: BEDSIDE GLUCOSE 124 MG/DL (80-115)
[2017-12-30] MEDS: HumaLOG INSULIN (NovoLOG) PER UNIT SC ×4 (07:30→20:21)
[2017-12-30] MEDS: VITAMIN D 1,000 INTERNATIONAL UNITS TABLET PO (09:00)
[2017-12-30] MEDS: hydroCHLOROthiazide 25 MG TAB PO (09:00)
[2017-12-30] MEDS: CYANOCOBALAMIN 500 MCG TAB PO (09:00)
[2017-12-30] MEDS: metFORMIN (GLUCOPHAGE) 500 MG TAB PO ×2 (09:24→18:00)
[2017-12-30] MEDS: FOLIC ACID 1 MG TAB PO (09:25)
[2017-12-30] MEDS: CALCIUM CARBONATE 500 MG CHEW U/D PO ×3 (09:26→20:19)
[2017-12-30] MEDS: PARoxetine 20 MG TAB PO (09:26)
[2017-12-30] MEDS: PANTOPRAZOLE 40MG TAB (PROTONIX) PO (09:26)
[2017-12-30] MEDS: QUINAPRIL 20 MG TAB PO ×2 (09:29→20:18)
[2017-12-30] MEDS: CEPHALEXIN SUSP POWDER 250MG/5ML BTL 100ML PO ×4 (09:32→20:20)
[2017-12-30] MEDS: NYSTATIN 100,000 UNITS/GM TOPICAL PWD 15 GM TOP ×2 (09:34→20:22)
[2017-12-30] MEDS: EUCERIN 120GM CREAM TOP ×2 (09:34→20:22)
[2017-12-30 11:53] LABS: BEDSIDE GLUCOSE 97 MG/DL (80-115)
[2017-12-30] MEDS: CHOLESTYRAMINE 4 GM PWD PKT PO ×2 (12:00→18:00)
[2017-12-30 16:31] LABS: BEDSIDE GLUCOSE 93 MG/DL (80-115)
[2017-12-30 20:09] LABS: BEDSIDE GLUCOSE 91 MG/DL (80-115)
[2017-12-30] MEDS: CEPACOL LOZENGE PO (20:18)
[2017-12-30] MEDS: amLODIPine 10 MG TAB PO (20:18)
[2017-12-30] MEDS: ATORVASTATIN 20 MG TAB PO (20:19)
[2017-12-30] MEDS: zolPIDEM TARTRATE 10MG TAB PO (20:19)
[2017-12-30] MEDS: BISOPROLOL FUMARATE 10 MG TAB PO (20:19)
[2017-12-30] MEDS: hydrOXYzine 25 MG TAB PO (20:19)
[2017-12-30] MEDS: LATANOPROST 0.005% OPHTH SOLN 2.5 ML OU (20:22)
[2017-12-30] MEDS: QUEtiapine FUMARATE 50 MG TAB PO (20:29)
[2017-12-31] MEDS: ANEXSIA, NORCO 7.5MG/325MG TABLET(HYDROCODONE/APAP) PO ×3 (00:56→21:11)
[2017-12-31] MEDS: CEPACOL LOZENGE PO ×3 (00:58→21:44)
[2017-12-31] MEDS: LEVOTHYROXINE 50MCG TABLET (0.05MG) PO (06:25)
[2017-12-31] MEDS: metFORMIN (GLUCOPHAGE) 500 MG TAB PO ×2 (06:28→16:00)
[2017-12-31 06:38] LABS: BEDSIDE GLUCOSE 102 MG/DL (80-115)
[2017-12-31] MEDS: HumaLOG INSULIN (NovoLOG) PER UNIT SC ×4 (07:30→21:00)
[2017-12-31] MEDS: FERROUS SULFATE 325MG TAB PO (09:00)
[2017-12-31] MEDS: VITAMIN D 1,000 INTERNATIONAL UNITS TABLET PO (09:00)
[2017-12-31] MEDS: CYANOCOBALAMIN 500 MCG TAB PO (09:00)
[2017-12-31] MEDS: hydroCHLOROthiazide 25 MG TAB PO (09:00)
[2017-12-31] MEDS: EUCERIN 120GM CREAM TOP ×2 (09:00→21:12)
[2017-12-31] MEDS: NYSTATIN 100,000 UNITS/GM TOPICAL PWD 15 GM TOP ×2 (09:00→21:12)
[2017-12-31] MEDS: QUINAPRIL 20 MG TAB PO ×2 (11:30→21:09)
[2017-12-31] MEDS: FOLIC ACID 1 MG TAB PO (11:31)
[2017-12-31] MEDS: CALCIUM CARBONATE 500 MG CHEW U/D PO ×3 (11:31→21:12)
[2017-12-31] MEDS: PARoxetine 20 MG TAB PO (11:31)
[2017-12-31] MEDS: PANTOPRAZOLE 40MG TAB (PROTONIX) PO (11:31)
[2017-12-31] MEDS: CEPHALEXIN SUSP POWDER 250MG/5ML BTL 100ML PO ×4 (11:32→21:08)
[2017-12-31] MEDS: CHOLESTYRAMINE 4 GM PWD PKT PO ×2 (11:35→17:25)
[2017-12-31 11:36] LABS: BEDSIDE GLUCOSE 118 MG/DL (80-115)
[2017-12-31 17:10] LABS: BEDSIDE GLUCOSE 102 MG/DL (80-115)
[2017-12-31 19:51] LABS: BEDSIDE GLUCOSE 140 MG/DL (80-115)
[2017-12-31] MEDS: BISOPROLOL FUMARATE 10 MG TAB PO (21:08)
[2017-12-31] MEDS: ATORVASTATIN 20 MG TAB PO (21:09)
[2017-12-31] MEDS: hydrOXYzine 25 MG TAB PO (21:10)
[2017-12-31] MEDS: zolPIDEM TARTRATE 10MG TAB PO (21:10)
[2017-12-31] MEDS: QUEtiapine FUMARATE 50 MG TAB PO (21:10)
[2017-12-31] MEDS: amLODIPine 10 MG TAB PO (21:10)
[2017-12-31] MEDS: LATANOPROST 0.005% OPHTH SOLN 2.5 ML OU (21:12)
[2018-01-01] MEDS: LEVOTHYROXINE 50MCG TABLET (0.05MG) PO (05:17)
[2018-01-01 06:16] LABS: BEDSIDE GLUCOSE 110 MG/DL (80-115)
[2018-01-01] MEDS: HumaLOG INSULIN (NovoLOG) PER UNIT SC ×4 (07:30→21:00)
[2018-01-01] MEDS: metFORMIN (GLUCOPHAGE) 500 MG TAB PO ×2 (08:00→17:05)
[2018-01-01] MEDS: CEPHALEXIN SUSP POWDER 250MG/5ML BTL 100ML PO (08:42)
[2018-01-01] MEDS: EUCERIN 120GM CREAM TOP ×2 (08:42→21:30)
[2018-01-01] MEDS: NYSTATIN 100,000 UNITS/GM TOPICAL PWD 15 GM TOP ×2 (08:42→21:30)
[2018-01-01] MEDS: QUINAPRIL 20 MG TAB PO ×2 (08:43→21:29)
[2018-01-01] MEDS: PARoxetine 20 MG TAB PO (08:43)
[2018-01-01] MEDS: VITAMIN D 1,000 INTERNATIONAL UNITS TABLET PO (08:44)
[2018-01-01] MEDS: FOLIC ACID 1 MG TAB PO (08:44)
[2018-01-01] MEDS: CYANOCOBALAMIN 500 MCG TAB PO (08:44)
[2018-01-01] MEDS: PANTOPRAZOLE 40MG TAB (PROTONIX) PO (08:44)
[2018-01-01] MEDS: CALCIUM CARBONATE 500 MG CHEW U/D PO ×3 (08:44→21:29)
[2018-01-01] MEDS: hydroCHLOROthiazide 25 MG TAB PO (08:45)
[2018-01-01] MEDS: ANEXSIA, NORCO 7.5MG/325MG TABLET(HYDROCODONE/APAP) PO ×2 (10:32→21:30)
[2018-01-01] MEDS: CHOLESTYRAMINE 4 GM PWD PKT PO ×2 (11:15→17:05)
[2018-01-01 11:58] LABS: BEDSIDE GLUCOSE 125 MG/DL (80-115)
[2018-01-01 18:03] LABS: BEDSIDE GLUCOSE 117 MG/DL (80-115)
[2018-01-01 20:40] LABS: BEDSIDE GLUCOSE 132 MG/DL (80-115)
[2018-01-01] MEDS: CEPACOL LOZENGE PO (21:28)
[2018-01-01] MEDS: hydrOXYzine 25 MG TAB PO (21:28)
[2018-01-01] MEDS: zolPIDEM TARTRATE 10MG TAB PO (21:28)
[2018-01-01] MEDS: QUEtiapine FUMARATE 50 MG TAB PO (21:28)
[2018-01-01] MEDS: ATORVASTATIN 20 MG TAB PO (21:29)
[2018-01-01] MEDS: LATANOPROST 0.005% OPHTH SOLN 2.5 ML OU (21:30)
[2018-01-01] MEDS: BISOPROLOL FUMARATE 10 MG TAB PO (21:33)
[2018-01-01] MEDS: amLODIPine 10 MG TAB PO (21:34)
[2018-01-02] MEDS: LEVOTHYROXINE 50MCG TABLET (0.05MG) PO (04:59)
[2018-01-02] MEDS: HumaLOG INSULIN (NovoLOG) PER UNIT SC ×4 (07:30→20:18)
[2018-01-02] MEDS: metFORMIN (GLUCOPHAGE) 500 MG TAB PO ×2 (08:00→18:00)
[2018-01-02] MEDS: CYANOCOBALAMIN 500 MCG TAB PO (09:00)
[2018-01-02] MEDS: VITAMIN D 1,000 INTERNATIONAL UNITS TABLET PO (09:00)
[2018-01-02] MEDS: hydroCHLOROthiazide 25 MG TAB PO (09:00)
[2018-01-02] MEDS: FERROUS SULFATE 325MG TAB PO (09:00)
[2018-01-02] MEDS: PARoxetine 20 MG TAB PO (09:04)
[2018-01-02] MEDS: CALCIUM CARBONATE 500 MG CHEW U/D PO ×3 (09:06→20:12)
[2018-01-02] MEDS: QUINAPRIL 20 MG TAB PO ×2 (09:06→20:11)
[2018-01-02] MEDS: PANTOPRAZOLE 40MG TAB (PROTONIX) PO (09:06)
[2018-01-02] MEDS: FOLIC ACID 1 MG TAB PO (09:07)
[2018-01-02] MEDS: EUCERIN 120GM CREAM TOP ×2 (09:08→20:12)
[2018-01-02] MEDS: NYSTATIN 100,000 UNITS/GM TOPICAL PWD 15 GM TOP ×2 (09:08→20:13)
[2018-01-02] MEDS: ANEXSIA, NORCO 7.5MG/325MG TABLET(HYDROCODONE/APAP) PO ×2 (11:05→20:18)
[2018-01-02 11:18] LABS: BEDSIDE GLUCOSE 127 MG/DL (80-115)
[2018-01-02] MEDS: CHOLESTYRAMINE 4 GM PWD PKT PO ×2 (12:00→18:00)
[2018-01-02 16:42] LABS: BEDSIDE GLUCOSE 79 MG/DL (80-115)
[2018-01-02] MEDS: zolPIDEM TARTRATE 10MG TAB PO (20:10)
[2018-01-02] MEDS: QUEtiapine FUMARATE 50 MG TAB PO (20:11)
[2018-01-02] MEDS: amLODIPine 10 MG TAB PO (20:11)
[2018-01-02] MEDS: LATANOPROST 0.005% OPHTH SOLN 2.5 ML OU (20:12)
[2018-01-02] MEDS: ATORVASTATIN 20 MG TAB PO (20:12)
[2018-01-02] MEDS: BISOPROLOL FUMARATE 10 MG TAB PO (20:12)
[2018-01-02] MEDS: hydrOXYzine 25 MG TAB PO (20:12)
[2018-01-02 20:18] LABS: BEDSIDE GLUCOSE 145 MG/DL (80-115)
[2018-01-03] MEDS: LEVOTHYROXINE 50MCG TABLET (0.05MG) PO (05:23)
[2018-01-03 06:55] LABS: BEDSIDE GLUCOSE 104 MG/DL (80-115)
[2018-01-03] MEDS: HumaLOG INSULIN (NovoLOG) PER UNIT SC ×4 (07:30→21:00)
[2018-01-03] MEDS: metFORMIN (GLUCOPHAGE) 500 MG TAB PO ×2 (08:00→16:35)
[2018-01-03 08:24] LABS: BEDSIDE GLUCOSE 101 MG/DL (80-115)
[2018-01-03] MEDS: NYSTATIN 100,000 UNITS/GM TOPICAL PWD 15 GM TOP ×2 (09:00→20:23)
[2018-01-03] MEDS: CYANOCOBALAMIN 500 MCG TAB PO (09:00)
[2018-01-03] MEDS: EUCERIN 120GM CREAM TOP ×2 (09:00→20:23)
[2018-01-03] MEDS: hydroCHLOROthiazide 25 MG TAB PO (09:00)
[2018-01-03] MEDS: VITAMIN D 1,000 INTERNATIONAL UNITS TABLET PO (09:00)
[2018-01-03] MEDS: FOLIC ACID 1 MG TAB PO (09:12)
[2018-01-03] MEDS: PARoxetine 20 MG TAB PO (09:13)
[2018-01-03] MEDS: CALCIUM CARBONATE 500 MG CHEW U/D PO ×3 (09:13→20:22)
[2018-01-03] MEDS: QUINAPRIL 20 MG TAB PO ×2 (09:13→20:24)
[2018-01-03] MEDS: PANTOPRAZOLE 40MG TAB (PROTONIX) PO (09:13)
[2018-01-03] MEDS: ANEXSIA, NORCO 7.5MG/325MG TABLET(HYDROCODONE/APAP) PO ×2 (09:54→18:24)
[2018-01-03 11:35] LABS: BEDSIDE GLUCOSE 120 MG/DL (80-115)
[2018-01-03] MEDS: CHOLESTYRAMINE 4 GM PWD PKT PO ×2 (12:00→17:29)
[2018-01-03 19:53] LABS: BEDSIDE GLUCOSE 158 MG/DL (80-115)
[2018-01-03] MEDS: LATANOPROST 0.005% OPHTH SOLN 2.5 ML OU (20:20)
[2018-01-03] MEDS: zolPIDEM TARTRATE 10MG TAB PO (20:21)
[2018-01-03] MEDS: ATORVASTATIN 20 MG TAB PO (20:21)
[2018-01-03] MEDS: amLODIPine 10 MG TAB PO (20:21)
[2018-01-03] MEDS: QUEtiapine FUMARATE 50 MG TAB PO (20:21)
[2018-01-03] MEDS: BISOPROLOL FUMARATE 10 MG TAB PO (20:22)
[2018-01-03] MEDS: hydrOXYzine 25 MG TAB PO (20:22)
[2018-01-03] MEDS: CEPACOL LOZENGE PO (20:27)
[2018-01-03] MEDS: ACETAMINOPHEN 325 MG/10.15 ML UDC PO (20:30)
[2018-01-04] MEDS: LEVOTHYROXINE 50MCG TABLET (0.05MG) PO (05:35)
[2018-01-04 06:07] LABS: BEDSIDE GLUCOSE 110 MG/DL (80-115)
[2018-01-04] MEDS: HumaLOG INSULIN (NovoLOG) PER UNIT SC ×4 (07:30→21:00)
[2018-01-04] MEDS: metFORMIN (GLUCOPHAGE) 500 MG TAB PO ×2 (08:00→17:24)
[2018-01-04] MEDS: QUINAPRIL 20 MG TAB PO ×2 (08:44→21:38)
[2018-01-04] MEDS: PANTOPRAZOLE 40MG TAB (PROTONIX) PO (08:44)
[2018-01-04] MEDS: FOLIC ACID 1 MG TAB PO (08:45)
[2018-01-04] MEDS: hydroCHLOROthiazide 25 MG TAB PO (08:46)
[2018-01-04] MEDS: CALCIUM CARBONATE 500 MG CHEW U/D PO ×3 (08:46→21:35)
[2018-01-04] MEDS: PARoxetine 20 MG TAB PO (08:46)
[2018-01-04] MEDS: ANEXSIA, NORCO 7.5MG/325MG TABLET(HYDROCODONE/APAP) PO ×2 (08:47→22:07)
[2018-01-04] MEDS: VITAMIN D 1,000 INTERNATIONAL UNITS TABLET PO (09:00)
[2018-01-04] MEDS: NYSTATIN 100,000 UNITS/GM TOPICAL PWD 15 GM TOP ×2 (09:00→21:40)
[2018-01-04] MEDS: FERROUS SULFATE 325MG TAB PO (09:00)
[2018-01-04] MEDS: CYANOCOBALAMIN 500 MCG TAB PO (09:00)
[2018-01-04] MEDS: EUCERIN 120GM CREAM TOP ×2 (09:00→21:40)
[2018-01-04 11:40] LABS: BEDSIDE GLUCOSE 129 MG/DL (80-115)
[2018-01-04] MEDS: CHOLESTYRAMINE 4 GM PWD PKT PO ×2 (12:00→16:51)
[2018-01-04] MEDS: ACETAMINOPHEN 325 MG/10.15 ML UDC PO (14:00)
[2018-01-04 16:46] LABS: BEDSIDE GLUCOSE 119 MG/DL (80-115)
[2018-01-04 21:31] LABS: BEDSIDE GLUCOSE 145 MG/DL (80-115)
[2018-01-04] MEDS: QUEtiapine FUMARATE 50 MG TAB PO (21:34)
[2018-01-04] MEDS: ATORVASTATIN 20 MG TAB PO (21:35)
[2018-01-04] MEDS: zolPIDEM TARTRATE 10MG TAB PO (21:36)
[2018-01-04] MEDS: hydrOXYzine 25 MG TAB PO (21:36)
[2018-01-04] MEDS: BISOPROLOL FUMARATE 10 MG TAB PO (21:37)
[2018-01-04] MEDS: amLODIPine 10 MG TAB PO (21:38)
[2018-01-04] MEDS: LATANOPROST 0.005% OPHTH SOLN 2.5 ML OU (21:39)
[2018-01-05] MEDS: LEVOTHYROXINE 50MCG TABLET (0.05MG) PO (05:42)
[2018-01-05] MEDS: HumaLOG INSULIN (NovoLOG) PER UNIT SC ×2 (07:30→12:55)
[2018-01-05] MEDS: metFORMIN (GLUCOPHAGE) 500 MG TAB PO (08:00)
[2018-01-05] MEDS: CALCIUM CARBONATE 500 MG CHEW U/D PO (08:31)
[2018-01-05] MEDS: QUINAPRIL 20 MG TAB PO (08:32)
[2018-01-05] MEDS: hydroCHLOROthiazide 25 MG TAB PO (08:32)
[2018-01-05] MEDS: PARoxetine 20 MG TAB PO (08:33)
[2018-01-05] MEDS: PANTOPRAZOLE 40MG TAB (PROTONIX) PO (08:33)
[2018-01-05] MEDS: VITAMIN D 1,000 INTERNATIONAL UNITS TABLET PO (08:33)
[2018-01-05] MEDS: CYANOCOBALAMIN 500 MCG TAB PO (08:34)
[2018-01-05] MEDS: EUCERIN 120GM CREAM TOP (08:34)
[2018-01-05] MEDS: FOLIC ACID 1 MG TAB PO (08:35)
[2018-01-05] MEDS: NYSTATIN 100,000 UNITS/GM TOPICAL PWD 15 GM TOP (08:40)
[2018-01-05] MEDS: ANEXSIA, NORCO 7.5MG/325MG TABLET(HYDROCODONE/APAP) PO (10:46)
[2018-01-05 11:42] LABS: BEDSIDE GLUCOSE 126 MG/DL (80-115)
[2018-01-05] MEDS: CHOLESTYRAMINE 4 GM PWD PKT PO (12:55)
[2018-01-05 20:46] LABS: BEDSIDE GLUCOSE 102 MG/DL (80-115)
== END 2018-01-05 15:40 | disposition home health service (06) | DRG 602 ==
LOC: M ED 14:20 → M ED INP 19:42 → M MS5PR 22:20
PROC: 05H633Z Insertion of Infusion Device into Left Subclavian Vein, Percutaneous Approach (ICD-10-PCS; principal; 2017-12-25)
PROC: 30233N1 Transfusion of Nonautologous Red Blood Cells into Peripheral Vein, Percutaneous Approach (ICD-10-PCS; 2017-12-25)
DX: L03.115 Cellulitis of right lower limb (principal); K31.811 Angiodysplasia of stomach and duodenum with bleeding; I10 Essential (primary) hypertension; E11.9 Type 2 diabetes mellitus without complications; E78.5 Hyperlipidemia, unspecified; K21.9 Gastro-esophageal reflux disease without esophagitis; E03.9 Hypothyroidism, unspecified; M81.0 Age-related osteoporosis without current pathological fracture; H40.9 Unspecified glaucoma; G47.33 Obstructive sleep apnea (adult) (pediatric); Z96.651 Presence of right artificial knee joint; Z79.891 Long term (current) use of opiate analgesic; Z79.899 Other long term (current) drug therapy; D50.0 Iron deficiency anemia secondary to blood loss (chronic)

== ENCOUNTER → 2018-01-19 | Outpatient (REF) | payer MEDICARE, MEDICAID ==
[2018-01-19 17:36] LABS: BASO % 0.3 % (0.0-1.0); EOS # 0.3 10^3/uL (0.0-0.50); EOS % 4.3 % (0.0-3.0); HEMATOCRIT 35.6 % (36.0-47.0); HEMOGLOBIN 11.2 g/dl (12.0-15.5); IMMATURE GRANULOCYTE % 0.7 % (0-3.0); LYMPH # 1.8 10^3/uL (1.5-4.5); LYMPH % 27.1 % (24.0-44.0); MEAN CORPUSCULAR HEMOGLOBIN 26.5 pg (27.0-33.0); MEAN CORPUSCULAR HGB CONC 31.5 g/dl (32.0-36.5); MEAN CORPUSCULAR VOLUME 84.2 fl (80.0-96.0); MONO # 0.6 10^3/uL (0.0-0.8); MONO % 8.1 % (0.0-5.0); NEUTROPHILS % 59.5 % (36.0-66.0); PLATELET COUNT, AUTOMATED 249 10^3/uL (150-450); RED BLOOD COUNT 4.23 10^6/uL (4.00-5.40); RED CELL DISTRIBUTION WIDTH 16.2 % (11.5-14.5); RETIC HEMOGLOBIN EQUIVALENT 27.4 pg (24-36); RETICULOCYTE # 77.4 10^9/L (17-77); RETICULOCYTE % 1.8 % (0.5-1.5); WHITE BLOOD COUNT 6.8 10^3/uL (4.0-10.0)
[2018-01-19 17:53] LABS: ESTIMATED AVERAGE GLUCOSE 131 MG/DL (60-110); HEMOGLOBIN A1c 6.2 %
[2018-01-19 18:01] LABS: ALBUMIN 3.3 GM/DL (3.2-5.2); ALBUMIN/GLOBULIN RATIO 0.73 (1.00-1.93); ALKALINE PHOSPHATASE 83 U/L (45-117); ALT/SGPT 17 U/L (12-78); ANION GAP 11 MEQ/L (8-16); AST/SGOT 18 U/L (7-37); BILIRUBIN,TOTAL 0.2 MG/DL (0.2-1.0); BLOOD UREA NITROGEN 13 MG/DL (7-18); CALCIUM LEVEL 8.6 MG/DL (8.8-10.2); CARBON DIOXIDE LEVEL 27 MEQ/L (21-32); CHLORIDE LEVEL 105 MEQ/L (98-107); CREATININE FOR GFR 0.72 MG/DL (0.55-1.30); FERRITIN 60 NG/ML (8-252); FREE T4 0.99 NG/DL (0.76-1.46); GLOMERULAR FILTRATION RATE > 60.0 (>45); GLUCOSE, FASTING 103 MG/DL (70-100); IRON (FE) 54 UG/DL (50-170); PERCENT SATURATION 16.8 % (13.2-45.0); POTASSIUM SERUM 4.1 MEQ/L (3.5-5.1); SODIUM LEVEL 143 MEQ/L (136-145); TOTAL IRON BINDING CAPACITY 321 UG/DL (250-450); TOTAL PROTEIN 7.8 GM/DL (6.4-8.2)
== END ==
LOC: M SFHCPLAZ 14:53
DX: D50.9 Iron deficiency anemia, unspecified (principal); E11.9 Type 2 diabetes mellitus without complications; E03.9 Hypothyroidism, unspecified
CPT/HCPCS: 83550

== ENCOUNTER 2018-02-20 09:10 | Day surgery (SDC) | payer MEDICARE, MEDICAID ==
[~2018-02-20 09:10] MED LIST changes: +ACETAMINOPHEN 325 MG TAB PO; +PHENYLEPHRINE HCL 10 % OPHTH. SOL 5ML OD; +PROPARACAINE 0.5% OPHTH SOL 15ML OD
[2018-02-20] MEDS: LIDOCAINE 3.5 % 1ML OPHTH TOPICAL GEL OU (10:05)
[2018-02-20] MEDS: CYCLOPENTOLATE 2% OPHTH SOLN 2ML BTL OD (10:10)
[2018-02-20] MEDS: OFLOXACIN 0.3 % (OCUFLOX) OPTH SOL 5ML OD (10:10)
[2018-02-20] MEDS: TROPICAMIDE 1% OPHTH SOLN 2ML OD (10:10)
[2018-02-20] MEDS: PHENYLEPHRINE 2.5% OPHTH SOL 2ML OD (10:21)
[2018-02-20] MEDS: HEALON DUET PRO(HEALON 10MG/ML 0.55ML & HEALON ENDOCOAT 30MG/ML 0.85ML) As Ordered ×4 (13:01→13:21)
[2018-02-20] MEDS: LIDOCAINE 1% SDV 5 ML VIAL As Ordered (13:01)
[2018-02-20] MEDS: BSS with VANC/TOB/EPI for EYE CASES IR (13:01)
[2018-02-20] MEDS: CEFUROXIME 1MG/0.1ML INTRACAMERAL INJ As Ordered ×2 (13:01→13:02)
[2018-02-20] MEDS: POVIDONE-IODINE 5% OPHTH PREP SOL 30ML As Ordered (13:01)
[2018-02-20] MEDS: ACETYLCHOLINE OPHTH SOLN 1% 2ML (MIOCHOL-E) As Ordered ×2 (13:21)
[2018-02-20] MEDS ORDERED: LABETALOL HCL 100 MG/20 ML VIAL As Ordered (13:22)
[2018-02-20] MEDS: TOBRADEX OPHTH OINT 3.5 GM As Ordered (13:30)
[2018-02-20] MEDS: KETOROLAC 0.5% OPHTH SOLN OD (13:45)
[2018-02-20] MEDS: AcetaZOLAMIDE 500 MG ER CAP PO (13:45)
[2018-02-20] MEDS ORDERED: TRIMETHOBENZAMIDE 300 MG CAP PO (14:00)
== END 2018-02-20 14:20 | disposition home or self-care (01) ==
LOC: M SDC 09:10
DX: H25.9 Unspecified age-related cataract (principal); H40.811 Glaucoma with increased episcleral venous pressure, right eye; I10 Essential (primary) hypertension; E11.9 Type 2 diabetes mellitus without complications; Z79.899 Other long term (current) drug therapy
CPT/HCPCS: 66984

== ENCOUNTER 2018-03-20 10:27 | Inpatient (IN) | payer MEDICARE, MEDICAID ==
[2018-03-20] MEDS: HumaLOG INSULIN (NovoLOG) PER UNIT SC (01:46)
[2018-03-20] MEDS: PERCOCET 5MG/325MG TAB PO ×2 (11:58→14:38)
[2018-03-20 12:09] LABS: BASO % 0.4 % (0.0-1.0); EOS # 0.1 10^3/uL (0.0-0.50); EOS % 1.6 % (0.0-3.0); HEMATOCRIT 32.6 % (36.0-47.0); HEMOGLOBIN 10.4 g/dl (12.0-15.5); IMMATURE GRANULOCYTE % 0.3 % (0-3.0); LYMPH # 1.6 10^3/uL (1.5-4.5); LYMPH % 23.8 % (24.0-44.0); MEAN CORPUSCULAR HGB CONC 31.9 g/dl (32.0-36.5); MEAN CORPUSCULAR VOLUME 87.6 fl (80.0-96.0); MONO # 0.5 10^3/uL (0.0-0.8); MONO % 7.3 % (0.0-5.0); NEUTROPHILS # 4.4 10^3/uL (1.8-7.7); NEUTROPHILS % 66.6 % (36.0-66.0); PLATELET COUNT, AUTOMATED 225 10^3/uL (150-450); RED BLOOD COUNT 3.72 10^6/uL (4.00-5.40); RED CELL DISTRIBUTION WIDTH 16.6 % (11.5-14.5); WHITE BLOOD COUNT 6.7 10^3/uL (4.0-10.0)
[2018-03-20 12:44] LABS: ERYTHROCYTE SEDIMENTATION RATE 44 mm/hr (0-30)
[2018-03-20 13:00] LABS: ALBUMIN 3.7 GM/DL (3.2-5.2); ALBUMIN/GLOBULIN RATIO 0.93 (1.00-1.93); ALKALINE PHOSPHATASE 77 U/L (45-117); ALT/SGPT 17 U/L (12-78); ANION GAP 7 MEQ/L (8-16); AST/SGOT 12 U/L (7-37); BILIRUBIN,TOTAL 0.4 MG/DL (0.2-1.0); BLOOD UREA NITROGEN 14 MG/DL (7-18); C REACTIVE PROTEIN QUANTITATIV < 0.30 MG/DL (0.00-0.30); CALCIUM LEVEL 8.9 MG/DL (8.8-10.2); CARBON DIOXIDE LEVEL 29 MEQ/L (21-32); CHLORIDE LEVEL 101 MEQ/L (98-107); CPK CREATINE PHOSPHOKINASE 185 U/L (26-192); CREATININE FOR GFR 0.78 MG/DL (0.55-1.30); GLOMERULAR FILTRATION RATE > 60.0 (>45); GLUCOSE, FASTING 119 MG/DL (70-100); LIPASE 64 U/L (73-393); MB/CK RELATIVE INDEX 1.08 (< OR =4); POTASSIUM SERUM 4.1 MEQ/L (3.5-5.1); SODIUM LEVEL 137 MEQ/L (136-145); TOTAL PROTEIN 7.7 GM/DL (6.4-8.2); TROPONIN I < 0.02 NG/ML (< 0.10)
[2018-03-20] MEDS: MORPHINE 4 MG/ML 1ML VIAL/SYRINGE (J2270) IV (16:06)
[2018-03-20] MEDS: LABETALOL HCL 100 MG/20 ML VIAL IV (17:08)
[2018-03-20] MEDS: QUINAPRIL 20 MG TAB PO (18:42)
[2018-03-20] MEDS: amLODIPine 5 MG TAB PO (18:42)
[2018-03-20] MEDS ORDERED: HALOPERIDOL 5 MG/ML VIAL (J1630) As Ordered (19:33)
[2018-03-20] MEDS: HALOPERIDOL 5 MG/ML VIAL (J1630) IM (19:40)
[2018-03-20] MEDS: diphenhydrAMINE INJ 50MG/ML VIAL (J1200) IM (19:40)
[2018-03-20] MEDS: CYANOCOBALAMIN 500 MCG TAB PO (21:00)
[2018-03-20] MEDS: VITAMIN D 1,000 INTERNATIONAL UNITS TABLET PO (21:00)
[2018-03-20] MEDS: MORPHINE 2 MG/ML 1ML SYRINGE (J2270) IV (22:46)
[2018-03-21] MEDS ORDERED: GLUCOSE 4 GM CHEW TABLET PO
[2018-03-21] MEDS ORDERED: DEXTROSE 50% 50 ML SYRINGE IV
[2018-03-21] MEDS ORDERED: GLUCAGON FOR INJ 1 MG VIAL (J1610) SC
[2018-03-21] MEDS: ACETAMINOPHEN TAB 650MG DOSE (2X325MG) PO ×2 (00:47→20:25)
[2018-03-21] MEDS: QUEtiapine FUMARATE 50 MG TAB PO ×2 (00:56→20:24)
[2018-03-21] MEDS: ATORVASTATIN 20 MG TAB PO ×2 (01:42→20:22)
[2018-03-21] MEDS: hydrOXYzine 25 MG TAB PO ×2 (01:42→20:21)
[2018-03-21] MEDS: zolPIDEM TARTRATE 5 MG TAB PO ×2 (01:42→20:24)
[2018-03-21 01:48] LABS: BEDSIDE GLUCOSE 105 MG/DL (80-115)
[2018-03-21] MEDS: PERCOCET 5MG/325MG TAB PO ×2 (02:45→08:57)
[2018-03-21] MEDS: MORPHINE 4 MG/ML 1ML VIAL/SYRINGE (J2270) IV (03:48)
[2018-03-21] MEDS: LEVOTHYROXINE 50MCG TABLET (0.05MG) PO (05:34)
[2018-03-21 06:56] LABS: BASO % 0.3 % (0.0-1.0); EOS # 0.1 10^3/uL (0.0-0.50); EOS % 1.4 % (0.0-3.0); HEMATOCRIT 29.2 % (36.0-47.0); HEMOGLOBIN 9.2 g/dl (12.0-15.5); IMMATURE GRANULOCYTE % 0.3 % (0-3.0); LYMPH # 2.2 10^3/uL (1.5-4.5); LYMPH % 30.6 % (24.0-44.0); MEAN CORPUSCULAR HEMOGLOBIN 27.9 pg (27.0-33.0); MEAN CORPUSCULAR HGB CONC 31.5 g/dl (32.0-36.5); MEAN CORPUSCULAR VOLUME 88.5 fl (80.0-96.0); MONO # 0.8 10^3/uL (0.0-0.8); MONO % 11.5 % (0.0-5.0); NEUTROPHILS # 4.1 10^3/uL (1.8-7.7); NEUTROPHILS % 55.9 % (36.0-66.0); PLATELET COUNT, AUTOMATED 198 10^3/uL (150-450); RED CELL DISTRIBUTION WIDTH 16.9 % (11.5-14.5); WHITE BLOOD COUNT 7.3 10^3/uL (4.0-10.0)
[2018-03-21 07:26] LABS: ANION GAP 7 MEQ/L (8-16); BLOOD UREA NITROGEN 15 MG/DL (7-18); CARBON DIOXIDE LEVEL 28 MEQ/L (21-32); CHLORIDE LEVEL 106 MEQ/L (98-107); CREATININE FOR GFR 0.71 MG/DL (0.55-1.30); GLOMERULAR FILTRATION RATE > 60.0 (>45); GLUCOSE, FASTING 97 MG/DL (70-100); POTASSIUM SERUM 3.4 MEQ/L (3.5-5.1); SODIUM LEVEL 141 MEQ/L (136-145)
[2018-03-21] MEDS: HumaLOG INSULIN (NovoLOG) PER UNIT SC ×5 (07:30→20:25)
[2018-03-21] MEDS: POTASSIUM CHLORIDE 10 MEQ SR TABLET PO (08:56)
[2018-03-21] MEDS: PANTOPRAZOLE 40MG TAB (PROTONIX) PO (08:57)
[2018-03-21] MEDS: PARoxetine 20 MG TAB PO (08:57)
[2018-03-21] MEDS: LATANOPROST 0.005% OPHTH SOLN 2.5 ML OU (08:58)
[2018-03-21] MEDS: CALCIUM CARBONATE 500 MG CHEW U/D PO ×3 (08:58→20:21)
[2018-03-21] MEDS: ENOXAPARIN 40 MG/0.4 ML SYRINGE (J1650) SC (08:58)
[2018-03-21] MEDS: NYSTATIN 100,000 UNITS/GM TOPICAL PWD 15 GM TOP (08:58)
[2018-03-21] MEDS: BISOPROLOL FUMARATE 10 MG TAB PO (09:02)
[2018-03-21] MEDS: QUINAPRIL 20 MG TAB PO ×2 (09:03→20:22)
[2018-03-21 11:39] LABS: BEDSIDE GLUCOSE 134 MG/DL (80-115)
[2018-03-21 16:43] LABS: BEDSIDE GLUCOSE 159 MG/DL (80-115)
[2018-03-21 19:44] LABS: BEDSIDE GLUCOSE 146 MG/DL (80-115)
[2018-03-21] MEDS: amLODIPine 5 MG TAB PO (20:22)
[2018-03-21] MEDS: CYANOCOBALAMIN 500 MCG TAB PO (20:22)
[2018-03-21] MEDS: VITAMIN D 1,000 INTERNATIONAL UNITS TABLET PO (20:23)
[2018-03-21] MEDS: FERROUS SULFATE 325MG TAB PO (20:24)
[2018-03-22] MEDS: PERCOCET 5MG/325MG TAB PO ×3 (00:17→18:35)
[2018-03-22] MEDS: ACETAMINOPHEN TAB 650MG DOSE (2X325MG) PO ×4 (05:39→21:42)
[2018-03-22] MEDS: LEVOTHYROXINE 50MCG TABLET (0.05MG) PO (05:39)
[2018-03-22 06:04] LABS: BASO % 0.3 % (0.0-1.0); EOS # 0.2 10^3/uL (0.0-0.50); EOS % 2.3 % (0.0-3.0); HEMATOCRIT 29.7 % (36.0-47.0); HEMOGLOBIN 9.3 g/dl (12.0-15.5); IMMATURE GRANULOCYTE % 0.3 % (0-3.0); LYMPH # 2.4 10^3/uL (1.5-4.5); LYMPH % 31.9 % (24.0-44.0); MEAN CORPUSCULAR HEMOGLOBIN 27.8 pg (27.0-33.0); MEAN CORPUSCULAR HGB CONC 31.3 g/dl (32.0-36.5); MEAN CORPUSCULAR VOLUME 88.9 fl (80.0-96.0); MONO # 0.9 10^3/uL (0.0-0.8); MONO % 11.5 % (0.0-5.0); NEUTROPHILS % 53.7 % (36.0-66.0); PLATELET COUNT, AUTOMATED 193 10^3/uL (150-450); RED BLOOD COUNT 3.34 10^6/uL (4.00-5.40); WHITE BLOOD COUNT 7.4 10^3/uL (4.0-10.0)
[2018-03-22 06:34] LABS: ANION GAP 6 MEQ/L (8-16); BLOOD UREA NITROGEN 19 MG/DL (7-18); CARBON DIOXIDE LEVEL 30 MEQ/L (21-32); CHLORIDE LEVEL 105 MEQ/L (98-107); GLOMERULAR FILTRATION RATE > 60.0 (>45); GLUCOSE, FASTING 95 MG/DL (70-100); SODIUM LEVEL 141 MEQ/L (136-145)
[2018-03-22] MEDS: HumaLOG INSULIN (NovoLOG) PER UNIT SC ×4 (07:30→22:14)
[2018-03-22] MEDS: QUINAPRIL 20 MG TAB PO ×2 (09:57→21:39)
[2018-03-22] MEDS: ENOXAPARIN 40 MG/0.4 ML SYRINGE (J1650) SC (09:57)
[2018-03-22] MEDS: PANTOPRAZOLE 40MG TAB (PROTONIX) PO (09:58)
[2018-03-22] MEDS: PARoxetine 20 MG TAB PO (09:58)
[2018-03-22] MEDS: BISOPROLOL FUMARATE 10 MG TAB PO (09:58)
[2018-03-22] MEDS: CALCIUM CARBONATE 500 MG CHEW U/D PO ×3 (09:59→21:51)
[2018-03-22] MEDS: LATANOPROST 0.005% OPHTH SOLN 2.5 ML OU (09:59)
[2018-03-22] MEDS: NYSTATIN 100,000 UNITS/GM TOPICAL PWD 15 GM TOP ×2 (09:59→22:43)
[2018-03-22 11:32] LABS: BEDSIDE GLUCOSE 145 MG/DL (80-115)
[2018-03-22 16:58] LABS: BEDSIDE GLUCOSE 85 MG/DL (80-115)
[2018-03-22] MEDS: ATORVASTATIN 20 MG TAB PO (21:40)
[2018-03-22] MEDS: hydrOXYzine 25 MG TAB PO (21:43)
[2018-03-22] MEDS: VITAMIN D 1,000 INTERNATIONAL UNITS TABLET PO (21:43)
[2018-03-22] MEDS: QUEtiapine FUMARATE 50 MG TAB PO (21:43)
[2018-03-22] MEDS: amLODIPine 5 MG TAB PO (21:44)
[2018-03-22] MEDS: CYANOCOBALAMIN 500 MCG TAB PO (21:50)
[2018-03-22] MEDS: zolPIDEM TARTRATE 5 MG TAB PO (21:51)
[2018-03-22 22:15] LABS: BEDSIDE GLUCOSE 120 MG/DL (80-115)
[2018-03-23] MEDS: PERCOCET 5MG/325MG TAB PO ×3 (02:13→15:38)
[2018-03-23] MEDS: LEVOTHYROXINE 50MCG TABLET (0.05MG) PO (05:46)
[2018-03-23 06:55] LABS: BASO % 0.3 % (0.0-1.0); EOS # 0.2 10^3/uL (0.0-0.50); EOS % 2.8 % (0.0-3.0); HEMATOCRIT 27.8 % (36.0-47.0); HEMOGLOBIN 8.7 g/dl (12.0-15.5); IMMATURE GRANULOCYTE % 0.2 % (0-3.0); LYMPH # 2.3 10^3/uL (1.5-4.5); LYMPH % 34.9 % (24.0-44.0); MEAN CORPUSCULAR HEMOGLOBIN 28.1 pg (27.0-33.0); MEAN CORPUSCULAR HGB CONC 31.3 g/dl (32.0-36.5); MEAN CORPUSCULAR VOLUME 89.7 fl (80.0-96.0); MONO # 0.9 10^3/uL (0.0-0.8); MONO % 13.3 % (0.0-5.0); NEUTROPHILS # 3.2 10^3/uL (1.8-7.7); NEUTROPHILS % 48.5 % (36.0-66.0); PLATELET COUNT, AUTOMATED 180 10^3/uL (150-450); RED CELL DISTRIBUTION WIDTH 16.9 % (11.5-14.5); WHITE BLOOD COUNT 6.5 10^3/uL (4.0-10.0)
[2018-03-23 07:15] LABS: ANION GAP 7 MEQ/L (8-16); BLOOD UREA NITROGEN 22 MG/DL (7-18); CALCIUM LEVEL 8.3 MG/DL (8.8-10.2); CARBON DIOXIDE LEVEL 27 MEQ/L (21-32); CHLORIDE LEVEL 106 MEQ/L (98-107); CREATININE FOR GFR 0.74 MG/DL (0.55-1.30); GLOMERULAR FILTRATION RATE > 60.0 (>45); GLUCOSE, FASTING 101 MG/DL (70-100); POTASSIUM SERUM 4.1 MEQ/L (3.5-5.1); SODIUM LEVEL 140 MEQ/L (136-145)
[2018-03-23] MEDS: HumaLOG INSULIN (NovoLOG) PER UNIT SC ×4 (07:30→21:00)
[2018-03-23] MEDS: PARoxetine 20 MG TAB PO (09:36)
[2018-03-23] MEDS: CALCIUM CARBONATE 500 MG CHEW U/D PO ×3 (09:36→19:57)
[2018-03-23] MEDS: PANTOPRAZOLE 40MG TAB (PROTONIX) PO (09:36)
[2018-03-23] MEDS: QUINAPRIL 20 MG TAB PO ×2 (09:36→19:58)
[2018-03-23] MEDS: BISOPROLOL FUMARATE 10 MG TAB PO (09:36)
[2018-03-23] MEDS: ENOXAPARIN 40 MG/0.4 ML SYRINGE (J1650) SC (09:37)
[2018-03-23] MEDS: NYSTATIN 100,000 UNITS/GM TOPICAL PWD 15 GM TOP ×2 (09:39→20:02)
[2018-03-23] MEDS: LATANOPROST 0.005% OPHTH SOLN 2.5 ML OU (09:39)
[2018-03-23 12:01] LABS: BEDSIDE GLUCOSE 108 MG/DL (80-115)
[2018-03-23] MEDS: ACETAMINOPHEN TAB 650MG DOSE (2X325MG) PO ×2 (13:47→20:02)
[2018-03-23 16:19] LABS: BEDSIDE GLUCOSE 108 MG/DL (80-115)
[2018-03-23] MEDS: VITAMIN D 1,000 INTERNATIONAL UNITS TABLET PO (19:59)
[2018-03-23] MEDS: ATORVASTATIN 20 MG TAB PO (19:59)
[2018-03-23] MEDS: CYANOCOBALAMIN 500 MCG TAB PO (19:59)
[2018-03-23] MEDS: hydrOXYzine 25 MG TAB PO (20:00)
[2018-03-23] MEDS: zolPIDEM TARTRATE 5 MG TAB PO (20:00)
[2018-03-23] MEDS: amLODIPine 5 MG TAB PO (20:00)
[2018-03-23] MEDS: FERROUS SULFATE 325MG TAB PO (20:01)
[2018-03-23] MEDS: QUEtiapine FUMARATE 50 MG TAB PO (20:01)
[2018-03-23 20:13] LABS: BEDSIDE GLUCOSE 105 MG/DL (80-115)
[2018-03-24] MEDS: LEVOTHYROXINE 50MCG TABLET (0.05MG) PO (06:03)
[2018-03-24] MEDS: PERCOCET 5MG/325MG TAB PO ×3 (06:03→21:31)
[2018-03-24 06:43] LABS: ANION GAP 7 MEQ/L (8-16); BLOOD UREA NITROGEN 20 MG/DL (7-18); CALCIUM LEVEL 8.5 MG/DL (8.8-10.2); CARBON DIOXIDE LEVEL 29 MEQ/L (21-32); CHLORIDE LEVEL 101 MEQ/L (98-107); GLOMERULAR FILTRATION RATE > 60.0 (>45); GLUCOSE, FASTING 120 MG/DL (70-100); POTASSIUM SERUM 4.2 MEQ/L (3.5-5.1); SODIUM LEVEL 137 MEQ/L (136-145)
[2018-03-24 07:34] LABS: BASO % 0.3 % (0.0-1.0); EOS # 0.3 10^3/uL (0.0-0.50); EOS % 2.9 % (0.0-3.0); HEMOGLOBIN 10.3 g/dl (12.0-15.5); IMMATURE GRANULOCYTE % 0.3 % (0-3.0); LYMPH # 1.9 10^3/uL (1.5-4.5); LYMPH % 20.5 % (24.0-44.0); MEAN CORPUSCULAR HEMOGLOBIN 27.8 pg (27.0-33.0); MEAN CORPUSCULAR HGB CONC 31.2 g/dl (32.0-36.5); MEAN CORPUSCULAR VOLUME 88.9 fl (80.0-96.0); MONO # 0.9 10^3/uL (0.0-0.8); PLATELET COUNT, AUTOMATED 240 10^3/uL (150-450); RED BLOOD COUNT 3.71 10^6/uL (4.00-5.40); RED CELL DISTRIBUTION WIDTH 16.6 % (11.5-14.5)
[2018-03-24] MEDS: QUINAPRIL 20 MG TAB PO ×2 (09:10→21:28)
[2018-03-24] MEDS: PARoxetine 20 MG TAB PO (09:10)
[2018-03-24] MEDS: CALCIUM CARBONATE 500 MG CHEW U/D PO ×3 (09:11→21:29)
[2018-03-24] MEDS: BISOPROLOL FUMARATE 10 MG TAB PO (09:11)
[2018-03-24] MEDS: PANTOPRAZOLE 40MG TAB (PROTONIX) PO (09:11)
[2018-03-24] MEDS: ENOXAPARIN 40 MG/0.4 ML SYRINGE (J1650) SC (09:12)
[2018-03-24] MEDS: NYSTATIN 100,000 UNITS/GM TOPICAL PWD 15 GM TOP (09:12)
[2018-03-24] MEDS: LATANOPROST 0.005% OPHTH SOLN 2.5 ML OU (09:12)
[2018-03-24] MEDS: ACETAMINOPHEN TAB 650MG DOSE (2X325MG) PO (09:16)
[2018-03-24] MEDS: CEPACOL LOZENGE PO ×3 (15:55→21:29)
[2018-03-24] MEDS: zolPIDEM TARTRATE 5 MG TAB PO (21:26)
[2018-03-24] MEDS: hydrOXYzine 25 MG TAB PO (21:26)
[2018-03-24] MEDS: QUEtiapine FUMARATE 50 MG TAB PO (21:27)
[2018-03-24] MEDS: CYANOCOBALAMIN 500 MCG TAB PO (21:27)
[2018-03-24] MEDS: amLODIPine 5 MG TAB PO (21:27)
[2018-03-24] MEDS: VITAMIN D 1,000 INTERNATIONAL UNITS TABLET PO (21:28)
[2018-03-24] MEDS: ATORVASTATIN 20 MG TAB PO (21:28)
[2018-03-25] MEDS: SIMBRINZA OU ×3 (00:54→20:42)
[2018-03-25] MEDS: LEVOTHYROXINE 50MCG TABLET (0.05MG) PO (06:00)
[2018-03-25] MEDS: PERCOCET 5MG/325MG TAB PO ×3 (06:01→20:43)
[2018-03-25 06:51] LABS: ANION GAP 5 MEQ/L (8-16); BLOOD UREA NITROGEN 22 MG/DL (7-18); CARBON DIOXIDE LEVEL 29 MEQ/L (21-32); CHLORIDE LEVEL 107 MEQ/L (98-107); CREATININE FOR GFR 0.77 MG/DL (0.55-1.30); GLOMERULAR FILTRATION RATE > 60.0 (>45); GLUCOSE, FASTING 101 MG/DL (70-100); POTASSIUM SERUM 3.8 MEQ/L (3.5-5.1); SODIUM LEVEL 141 MEQ/L (136-145)
[2018-03-25] MEDS: TRAVATAN Z OU (08:30)
[2018-03-25] MEDS: ENOXAPARIN 40 MG/0.4 ML SYRINGE (J1650) SC (08:31)
[2018-03-25] MEDS: NYSTATIN 100,000 UNITS/GM TOPICAL PWD 15 GM TOP (08:31)
[2018-03-25] MEDS: PANTOPRAZOLE 40MG TAB (PROTONIX) PO (08:31)
[2018-03-25] MEDS: PARoxetine 20 MG TAB PO (08:32)
[2018-03-25] MEDS: CALCIUM CARBONATE 500 MG CHEW U/D PO ×3 (08:32→20:41)
[2018-03-25] MEDS: BISOPROLOL FUMARATE 10 MG TAB PO (08:32)
[2018-03-25] MEDS: QUINAPRIL 20 MG TAB PO ×2 (08:33→20:41)
[2018-03-25] MEDS: ACETAMINOPHEN TAB 650MG DOSE (2X325MG) PO (11:35)
[2018-03-25] MEDS: CEPACOL LOZENGE PO ×2 (12:16→16:25)
[2018-03-25] MEDS: CYANOCOBALAMIN 500 MCG TAB PO (20:40)
[2018-03-25] MEDS: QUEtiapine FUMARATE 50 MG TAB PO (20:40)
[2018-03-25] MEDS: amLODIPine 5 MG TAB PO (20:40)
[2018-03-25] MEDS: FERROUS SULFATE 325MG TAB PO (20:40)
[2018-03-25] MEDS: ATORVASTATIN 20 MG TAB PO (20:40)
[2018-03-25] MEDS: hydrOXYzine 25 MG TAB PO (20:40)
[2018-03-25] MEDS: VITAMIN D 1,000 INTERNATIONAL UNITS TABLET PO (20:40)
[2018-03-25] MEDS: zolPIDEM TARTRATE 5 MG TAB PO (20:41)
[2018-03-26] MEDS: PERCOCET 5MG/325MG TAB PO ×4 (01:58→22:20)
[2018-03-26] MEDS: CEPACOL LOZENGE PO ×2 (02:28→10:03)
[2018-03-26] MEDS: LEVOTHYROXINE 50MCG TABLET (0.05MG) PO (05:37)
[2018-03-26 06:12] LABS: HEMATOCRIT 26.7 % (36.0-47.0); HEMOGLOBIN 8.4 g/dl (12.0-15.5); MEAN CORPUSCULAR HEMOGLOBIN 28.1 pg (27.0-33.0); MEAN CORPUSCULAR HGB CONC 31.5 g/dl (32.0-36.5); MEAN CORPUSCULAR VOLUME 89.3 fl (80.0-96.0); PLATELET COUNT, AUTOMATED 190 10^3/uL (150-450); RED BLOOD COUNT 2.99 10^6/uL (4.00-5.40); RED CELL DISTRIBUTION WIDTH 16.5 % (11.5-14.5); WHITE BLOOD COUNT 5.9 10^3/uL (4.0-10.0)
[2018-03-26 06:33] LABS: ANION GAP 7 MEQ/L (8-16); BLOOD UREA NITROGEN 26 MG/DL (7-18); CARBON DIOXIDE LEVEL 27 MEQ/L (21-32); CHLORIDE LEVEL 106 MEQ/L (98-107); CREATININE FOR GFR 0.89 MG/DL (0.55-1.30); GLOMERULAR FILTRATION RATE > 60.0 (>45); GLUCOSE, FASTING 104 MG/DL (70-100); POTASSIUM SERUM 4.2 MEQ/L (3.5-5.1); SODIUM LEVEL 140 MEQ/L (136-145)
[2018-03-26] MEDS: PARoxetine 20 MG TAB PO (08:42)
[2018-03-26] MEDS: PANTOPRAZOLE 40MG TAB (PROTONIX) PO (08:42)
[2018-03-26] MEDS: QUINAPRIL 20 MG TAB PO ×2 (08:42→20:50)
[2018-03-26] MEDS: CALCIUM CARBONATE 500 MG CHEW U/D PO ×3 (08:42→20:49)
[2018-03-26] MEDS: NYSTATIN 100,000 UNITS/GM TOPICAL PWD 15 GM TOP (08:43)
[2018-03-26] MEDS: ENOXAPARIN 40 MG/0.4 ML SYRINGE (J1650) SC (08:43)
[2018-03-26] MEDS: BISOPROLOL FUMARATE 10 MG TAB PO (08:43)
[2018-03-26] MEDS: SIMBRINZA OU ×2 (08:44→20:51)
[2018-03-26] MEDS: TRAVATAN Z OU (08:44)
[2018-03-26] MEDS: QUEtiapine FUMARATE 50 MG TAB PO (20:49)
[2018-03-26] MEDS: VITAMIN D 1,000 INTERNATIONAL UNITS TABLET PO (20:49)
[2018-03-26] MEDS: amLODIPine 5 MG TAB PO (20:50)
[2018-03-26] MEDS: zolPIDEM TARTRATE 5 MG TAB PO (20:50)
[2018-03-26] MEDS: hydrOXYzine 25 MG TAB PO (20:50)
[2018-03-26] MEDS: ATORVASTATIN 20 MG TAB PO (20:51)
[2018-03-26] MEDS: CYANOCOBALAMIN 500 MCG TAB PO (20:51)
[2018-03-27] MEDS: PERCOCET 5MG/325MG TAB PO (06:06)
[2018-03-27] MEDS: LEVOTHYROXINE 50MCG TABLET (0.05MG) PO (06:06)
[2018-03-27 07:00] LABS: ANION GAP 7 MEQ/L (8-16); BLOOD UREA NITROGEN 29 MG/DL (7-18); CALCIUM LEVEL 8.1 MG/DL (8.8-10.2); CARBON DIOXIDE LEVEL 27 MEQ/L (21-32); CHLORIDE LEVEL 106 MEQ/L (98-107); CREATININE FOR GFR 0.86 MG/DL (0.55-1.30); GLOMERULAR FILTRATION RATE > 60.0 (>45); GLUCOSE, FASTING 95 MG/DL (70-100); POTASSIUM SERUM 4.4 MEQ/L (3.5-5.1); SODIUM LEVEL 140 MEQ/L (136-145)
[2018-03-27] MEDS: BISOPROLOL FUMARATE 10 MG TAB PO (09:18)
[2018-03-27] MEDS: CALCIUM CARBONATE 500 MG CHEW U/D PO (09:18)
[2018-03-27] MEDS: QUINAPRIL 20 MG TAB PO (09:18)
[2018-03-27] MEDS: PANTOPRAZOLE 40MG TAB (PROTONIX) PO (09:18)
[2018-03-27] MEDS: PARoxetine 20 MG TAB PO (09:18)
[2018-03-27] MEDS: SIMBRINZA OU (09:19)
[2018-03-27] MEDS: TRAVATAN Z OU (09:19)
[2018-03-27] MEDS: ENOXAPARIN 40 MG/0.4 ML SYRINGE (J1650) SC (09:19)
[2018-03-27] MEDS: NYSTATIN 100,000 UNITS/GM TOPICAL PWD 15 GM TOP (09:20)
[2018-03-27] MEDS: ACETAMINOPHEN TAB 650MG DOSE (2X325MG) PO (10:49)
== END 2018-03-27 10:50 | DRG 552 ==
LOC: M MS5PR 03-23 15:25 → M MS4PR 03-21 02:05 → M ED 10:27 → M ED INP 23:34
DX: M46.52 Other infective spondylopathies, cervical region (principal); I10 Essential (primary) hypertension; K21.9 Gastro-esophageal reflux disease without esophagitis; D50.0 Iron deficiency anemia secondary to blood loss (chronic); E03.9 Hypothyroidism, unspecified; E11.9 Type 2 diabetes mellitus without complications; G47.33 Obstructive sleep apnea (adult) (pediatric); K42.9 Umbilical hernia without obstruction or gangrene; M48.02 Spinal stenosis, cervical region; E87.6 Hypokalemia; B37.2 Candidiasis of skin and nail; F41.8 Other specified anxiety disorders; R26.2 Difficulty in walking, not elsewhere classified; Z79.899 Other long term (current) drug therapy; Z79.84 Long term (current) use of oral hypoglycemic drugs; Z96.651 Presence of right artificial knee joint

== ENCOUNTER → 2018-04-04 | Outpatient (REF) ==
[~2018-04-04] MED LIST changes: +ACCU40TA PO; -ACETAMINOPHEN 325 MG TAB PO; +ADV100INH INH; +AMBI10TA PO; +AMLO10TA PO; +AMLO5TAB4 PO; +ATOR40TA75 PO; +BISO10TA PO; +CALC500C16 PO; +CALC500T21 PO; +CHOL4PW PO; +EVIS1TAB PO; +FERR325T3 PO; +FOLI400T PO; +HYDR-3363 PO; +HYDR-3716 PO; +HYDR25TAB PO; +KLOR20TA42 PO; +LIPI20TA PO; +LOMO2.5T PO; +METF500T13 PO; -MIDAZOLAM INJ 2 MG/2 ML VIAL (J2250) As Ordered; +NEXI40CA PO; +NYST1POW9 TOP; +PAXI40TA10 PO; +PERCOCET PO; -PHENYLEPHRINE HCL 10 % OPHTH. SOL 5ML OD; -PROPARACAINE 0.5% OPHTH SOL 15ML OD; +RALO1TAB PO; +SERO50TA PO; +SIMB1SUS OU; +SYNT50TA PO; +TRAV04OPD OU; +TRUS1SOL OU; +VITA10002 PO; +VITA2000 PO; +VOLT1GEL15 TOP; -fentaNYL 100 MCG/2 ML INJECTION (J3010) As Ordered
[2018-04-04 10:01] LABS: HEMATOCRIT 32.5 % (36.0-47.0); HEMOGLOBIN 10.2 g/dl (12.0-15.5); MEAN CORPUSCULAR HEMOGLOBIN 28.1 pg (27.0-33.0); MEAN CORPUSCULAR HGB CONC 31.4 g/dl (32.0-36.5); MEAN CORPUSCULAR VOLUME 89.5 fl (80.0-96.0); PLATELET COUNT, AUTOMATED 303 10^3/uL (150-450); RED BLOOD COUNT 3.63 10^6/uL (4.00-5.40); WHITE BLOOD COUNT 8.2 10^3/uL (4.0-10.0)
[2018-04-04 10:38] LABS: BLOOD UREA NITROGEN 17 MG/DL (7-18); CALCIUM LEVEL 8.8 MG/DL (8.8-10.2); CARBON DIOXIDE LEVEL 30 MEQ/L (21-32); CHLORIDE LEVEL 100 MEQ/L (98-107); CREATININE FOR GFR 0.63 MG/DL (0.55-1.30); GLOMERULAR FILTRATION RATE > 60.0 (>45); GLUCOSE, FASTING 84 MG/DL (70-100); POTASSIUM SERUM 4.3 MEQ/L (3.5-5.1); SODIUM LEVEL 138 MEQ/L (136-145)
== END ==
PROVIDERS: ATTEND Family Medicine
DX: F39 Unspecified mood [affective] disorder (principal)

== ENCOUNTER → 2018-04-11 | Outpatient (REF) | payer MEDICARE, MEDICAID ==
[2018-04-11 11:35] LABS: HEMATOCRIT 30.8 % (36.0-47.0); HEMOGLOBIN 9.7 g/dl (12.0-15.5); MEAN CORPUSCULAR HGB CONC 31.5 g/dl (32.0-36.5); MEAN CORPUSCULAR VOLUME 88.8 fl (80.0-96.0); PLATELET COUNT, AUTOMATED 245 10^3/uL (150-450); RED BLOOD COUNT 3.47 10^6/uL (4.00-5.40); WHITE BLOOD COUNT 6.5 10^3/uL (4.0-10.0)
[2018-04-11 12:04] LABS: BLOOD UREA NITROGEN 22 MG/DL (7-18); CARBON DIOXIDE LEVEL 29 MEQ/L (21-32); CHLORIDE LEVEL 102 MEQ/L (98-107); GLOMERULAR FILTRATION RATE > 60.0 (>45); GLUCOSE, FASTING 154 MG/DL (70-100); POTASSIUM SERUM 4.5 MEQ/L (3.5-5.1); SODIUM LEVEL 139 MEQ/L (136-145)
== END ==
PROVIDERS: ATTEND Physician Assistant
DX: D64.9 Anemia, unspecified (principal)

== ENCOUNTER → 2018-05-22 | Outpatient (REF) | payer MEDICARE, MEDICAID ==
[~2018-05-22] MED LIST changes: -AMLO5TAB4 PO; +AMLO5TAB6 PO
[2018-05-22 09:58] LABS: HEMATOCRIT 30.4 % (36.0-47.0); HEMOGLOBIN 9.6 g/dl (12.0-15.5); MEAN CORPUSCULAR HEMOGLOBIN 28.1 pg (27.0-33.0); MEAN CORPUSCULAR HGB CONC 31.6 g/dl (32.0-36.5); MEAN CORPUSCULAR VOLUME 88.9 fl (80.0-96.0); PLATELET COUNT, AUTOMATED 192 10^3/uL (150-450); RED BLOOD COUNT 3.42 10^6/uL (4.00-5.40)
[2018-05-22 10:26] LABS: BLOOD UREA NITROGEN 27 MG/DL (7-18); CALCIUM LEVEL 8.5 MG/DL (8.8-10.2); CARBON DIOXIDE LEVEL 30 MEQ/L (21-32); CHLORIDE LEVEL 101 MEQ/L (98-107); CREATININE FOR GFR 0.78 MG/DL (0.55-1.30); GLOMERULAR FILTRATION RATE > 60.0 (>45); GLUCOSE, FASTING 136 MG/DL (70-100); POTASSIUM SERUM 4.5 MEQ/L (3.5-5.1); SODIUM LEVEL 137 MEQ/L (136-145)
== END ==
PROVIDERS: ATTEND Family Medicine
DX: D64.9 Anemia, unspecified (principal)

== ENCOUNTER → 2018-06-19 | Outpatient (REF) | payer MEDICARE, MEDICAID ==
[2018-06-19 10:35] LABS: HEMATOCRIT 28.9 % (36.0-47.0); HEMOGLOBIN 8.9 g/dl (12.0-15.5); MEAN CORPUSCULAR HEMOGLOBIN 27.9 pg (27.0-33.0); MEAN CORPUSCULAR HGB CONC 30.8 g/dl (32.0-36.5); MEAN CORPUSCULAR VOLUME 90.6 fl (80.0-96.0); PLATELET COUNT, AUTOMATED 188 10^3/uL (150-450); RED BLOOD COUNT 3.19 10^6/uL (4.00-5.40); WHITE BLOOD COUNT 5.5 10^3/uL (4.0-10.0)
[2018-06-19 10:52] LABS: BLOOD UREA NITROGEN 27 MG/DL (7-18); CARBON DIOXIDE LEVEL 30 MEQ/L (21-32); CHLORIDE LEVEL 105 MEQ/L (98-107); CREATININE FOR GFR 0.75 MG/DL (0.55-1.30); GLOMERULAR FILTRATION RATE > 60.0 (>45); GLUCOSE, FASTING 116 MG/DL (70-100); POTASSIUM SERUM 5.6 MEQ/L (3.5-5.1); SODIUM LEVEL 139 MEQ/L (136-145)
[2018-06-19 10:59] LABS: HEMOGLOBIN A1c 6.3 %
== END ==
PROVIDERS: ATTEND Family Medicine
DX: D64.9 Anemia, unspecified (principal); Z79.899 Other long term (current) drug therapy

== ENCOUNTER → 2018-06-20 | Outpatient (REF) | payer MEDICARE, MEDICAID ==
[2018-06-20 10:20] LABS: FERRITIN 32 NG/ML (8-252); IRON (FE) 54 UG/DL (50-170); PERCENT SATURATION 17.5 % (13.2-45.0); POTASSIUM SERUM 4.8 MEQ/L (3.5-5.1); TOTAL IRON BINDING CAPACITY 308 UG/DL (250-450)
[2018-06-20 10:26] LABS: FOLATE > 24.0 NG/ML (>5.4); VITAMIN B12 LEVEL 1455 PG/ML (247-911)
== END ==
PROVIDERS: ATTEND Family Medicine
DX: D64.9 Anemia, unspecified (principal)

== ENCOUNTER → 2018-06-21 | Outpatient (REF) | payer MEDICARE, MEDICAID ==
[2018-06-21 10:55] LABS: HEMATOCRIT 30.5 % (36.0-47.0); HEMOGLOBIN 9.3 g/dl (12.0-15.5); MEAN CORPUSCULAR HEMOGLOBIN 28.1 pg (27.0-33.0); MEAN CORPUSCULAR HGB CONC 30.5 g/dl (32.0-36.5); MEAN CORPUSCULAR VOLUME 92.1 fl (80.0-96.0); PLATELET COUNT, AUTOMATED 192 10^3/uL (150-450); RED BLOOD COUNT 3.31 10^6/uL (4.00-5.40); WHITE BLOOD COUNT 6.1 10^3/uL (4.0-10.0)
[2018-06-21 11:27] LABS: ALBUMIN 3.2 GM/DL (3.2-5.2); ALT/SGPT 18 U/L (12-78); AMYLASE 28 U/L (25-115); BILIRUBIN,TOTAL 0.2 MG/DL (0.2-1.0); BLOOD UREA NITROGEN 34 MG/DL (7-18); CALCIUM LEVEL 8.9 MG/DL (8.8-10.2); CARBON DIOXIDE LEVEL 27 MEQ/L (21-32); CHLORIDE LEVEL 103 MEQ/L (98-107); CREATININE FOR GFR 0.97 MG/DL (0.55-1.30); GLOMERULAR FILTRATION RATE > 60.0 (>45); GLUCOSE, FASTING 127 MG/DL (70-100); LIPASE 152 U/L (73-393); NT-PRO BNP 398 PG/ML (<125); POTASSIUM SERUM 4.8 MEQ/L (3.5-5.1); SODIUM LEVEL 138 MEQ/L (136-145); TOTAL PROTEIN 7.5 GM/DL (6.4-8.2)
[2018-06-22 14:26] LABS: C-PEPTIDE 20.7 ng/mL (1.1-4.4); INSULIN LEVEL 228.8 uIU/mL (2.6-24.9)
== END ==
PROVIDERS: ATTEND Nurse Practitioner Adult Health
DX: E16.2 Hypoglycemia, unspecified (principal); Z79.899 Other long term (current) drug therapy

== ENCOUNTER → 2018-06-26 | Outpatient (REF) | payer MEDICARE, MEDICAID ==
[2018-06-26 10:05] LABS: HEMATOCRIT 27.5 % (36.0-47.0); HEMOGLOBIN 8.6 g/dl (12.0-15.5); MEAN CORPUSCULAR HEMOGLOBIN 28.8 pg (27.0-33.0); MEAN CORPUSCULAR HGB CONC 31.3 g/dl (32.0-36.5); PLATELET COUNT, AUTOMATED 180 10^3/uL (150-450); RED BLOOD COUNT 2.99 10^6/uL (4.00-5.40)
[2018-06-26 10:20] LABS: BLOOD UREA NITROGEN 40 MG/DL (7-18); CALCIUM LEVEL 8.1 MG/DL (8.8-10.2); CARBON DIOXIDE LEVEL 29 MEQ/L (21-32); CHLORIDE LEVEL 104 MEQ/L (98-107); CREATININE FOR GFR 0.91 MG/DL (0.55-1.30); GLOMERULAR FILTRATION RATE > 60.0 (>45); GLUCOSE, FASTING 135 MG/DL (70-100); SODIUM LEVEL 138 MEQ/L (136-145)
== END ==
PROVIDERS: ATTEND Family Medicine
DX: R60.9 Edema, unspecified (principal)

== ENCOUNTER → 2018-06-27 | Outpatient (REF) | payer MEDICARE, MEDICAID | PROVIDERS: ATTEND Family Medicine | DX: D64.9 Anemia, unspecified (principal) ==

== ENCOUNTER → 2018-06-28 | Outpatient (REF) | payer MEDICARE, MEDICAID | PROVIDERS: ATTEND Family Medicine | DX: D64.9 Anemia, unspecified (principal) ==

== ENCOUNTER → 2018-06-29 | Outpatient (REF) | payer MEDICARE, MEDICAID | PROVIDERS: ATTEND Internal Medicine | DX: D64.9 Anemia, unspecified (principal) ==

== ENCOUNTER → 2018-07-10 | Outpatient (REF) | payer MEDICARE, MEDICAID ==
[2018-07-11 14:25] LABS: C-PEPTIDE 4.7 ng/mL (1.1-4.4); INSULIN LEVEL 18.4 uIU/mL (2.6-24.9)
== END ==
PROVIDERS: ATTEND Family Medicine
DX: E16.2 Hypoglycemia, unspecified (principal)

== ENCOUNTER → 2018-07-17 | Outpatient (REF) | payer MEDICARE, MEDICAID ==
[~2018-07-17] MED LIST changes: -BISO10TA PO; +BISO10TA13 PO; +HYDR-2541 PO
== END ==
PROVIDERS: ATTEND Family Medicine
DX: D64.9 Anemia, unspecified (principal)

== ENCOUNTER → 2018-09-18 | Outpatient (REF) | payer MEDICARE, MEDICAID ==
[2018-09-18 09:39] LABS: HEMATOCRIT 29.1 % (36.0-47.0); HEMOGLOBIN 8.8 g/dl (12.0-15.5); MEAN CORPUSCULAR HEMOGLOBIN 28.1 pg (27.0-33.0); MEAN CORPUSCULAR HGB CONC 30.2 g/dl (32.0-36.5); PLATELET COUNT, AUTOMATED 188 10^3/uL (150-450); RED BLOOD COUNT 3.13 10^6/uL (4.00-5.40); WHITE BLOOD COUNT 4.8 10^3/uL (4.0-10.0)
[2018-09-18 09:59] LABS: BLOOD UREA NITROGEN 31 MG/DL (7-18); CALCIUM LEVEL 8.9 MG/DL (8.8-10.2); CARBON DIOXIDE LEVEL 28 MEQ/L (21-32); CHLORIDE LEVEL 107 MEQ/L (98-107); CREATININE FOR GFR 0.93 MG/DL (0.55-1.30); GLOMERULAR FILTRATION RATE > 60.0 (>45); GLUCOSE, FASTING 80 MG/DL (70-100); POTASSIUM SERUM 5.5 MEQ/L (3.5-5.1); SODIUM LEVEL 140 MEQ/L (136-145)
[2018-09-18 10:00] LABS: HEMOGLOBIN A1c 6.5 %
[2018-09-18 10:10] LABS: VITAMIN B12 LEVEL 777 PG/ML (247-911)
== END ==
PROVIDERS: ATTEND Family Medicine
DX: D64.9 Anemia, unspecified (principal); Z79.899 Other long term (current) drug therapy

== ENCOUNTER → 2018-10-10 | Outpatient (REF) | payer MEDICARE, MEDICAID | PROVIDERS: ATTEND Family Medicine | DX: G47.62 Sleep related leg cramps (principal) ==

== ENCOUNTER → 2018-12-18 | Outpatient (REF) | payer MEDICARE, MEDICAID ==
[~2018-12-18] MED LIST changes: +CYAN100049 PO; -VITA10002 PO
[2018-12-18 10:29] LABS: HEMATOCRIT 30.4 % (36.0-47.0); HEMOGLOBIN 9.2 g/dl (12.0-15.5); MEAN CORPUSCULAR HEMOGLOBIN 27.4 pg (27.0-33.0); MEAN CORPUSCULAR HGB CONC 30.3 g/dl (32.0-36.5); MEAN CORPUSCULAR VOLUME 90.5 fl (80.0-96.0); PLATELET COUNT, AUTOMATED 186 10^3/uL (150-450); RED BLOOD COUNT 3.36 10^6/uL (4.00-5.40); WHITE BLOOD COUNT 4.9 10^3/uL (4.0-10.0)
[2018-12-18 10:46] LABS: BLOOD UREA NITROGEN 35 MG/DL (7-18); CALCIUM LEVEL 8.8 MG/DL (8.8-10.2); CARBON DIOXIDE LEVEL 28 MEQ/L (21-32); CHLORIDE LEVEL 103 MEQ/L (98-107); CREATININE FOR GFR 0.89 MG/DL (0.55-1.30); GLOMERULAR FILTRATION RATE > 60.0 (>45); GLUCOSE, FASTING 162 MG/DL (70-100); POTASSIUM SERUM 4.6 MEQ/L (3.5-5.1); SODIUM LEVEL 139 MEQ/L (136-145)
[2018-12-18 11:15] LABS: HEMOGLOBIN A1c 6.6 %
== END ==
PROVIDERS: ATTEND Family Medicine
DX: E03.9 Hypothyroidism, unspecified (principal); E11.9 Type 2 diabetes mellitus without complications

== ENCOUNTER → 2018-12-26 | Outpatient (REF) | payer MEDICARE, MEDICAID ==
[2018-12-26 09:46] LABS: BLOOD UREA NITROGEN 25 MG/DL (7-18); CALCIUM LEVEL 8.9 MG/DL (8.8-10.2); CARBON DIOXIDE LEVEL 30 MEQ/L (21-32); CHLORIDE LEVEL 105 MEQ/L (98-107); CREATININE FOR GFR 0.81 MG/DL (0.55-1.30); GLOMERULAR FILTRATION RATE > 60.0 (>45); GLUCOSE, FASTING 102 MG/DL (70-100); POTASSIUM SERUM 4.6 MEQ/L (3.5-5.1); SODIUM LEVEL 141 MEQ/L (136-145)
== END ==
PROVIDERS: ATTEND Family Medicine
DX: I50.9 Heart failure, unspecified (principal)

== ENCOUNTER → 2019-01-01 | Outpatient (REF) | payer MEDICARE, MEDICAID ==
[2019-01-01 11:26] LABS: BLOOD UREA NITROGEN 24 MG/DL (7-18); CALCIUM LEVEL 8.9 MG/DL (8.8-10.2); CARBON DIOXIDE LEVEL 28 MEQ/L (21-32); CHLORIDE LEVEL 104 MEQ/L (98-107); CREATININE FOR GFR 0.84 MG/DL (0.55-1.30); GLOMERULAR FILTRATION RATE > 60.0 (>45); GLUCOSE, FASTING 137 MG/DL (70-100); POTASSIUM SERUM 4.6 MEQ/L (3.5-5.1); SODIUM LEVEL 139 MEQ/L (136-145)
== END ==
PROVIDERS: ATTEND Family Medicine
DX: R60.9 Edema, unspecified (principal)

== ENCOUNTER → 2019-03-19 | Outpatient (REF) | payer MEDICARE, MEDICAID ==
[2019-03-19 11:30] LABS: HEMATOCRIT 31.3 % (36.0-47.0); HEMOGLOBIN 9.3 g/dl (12.0-15.5); MEAN CORPUSCULAR HEMOGLOBIN 26.7 pg (27.0-33.0); MEAN CORPUSCULAR HGB CONC 29.7 g/dl (32.0-36.5); MEAN CORPUSCULAR VOLUME 89.9 fl (80.0-96.0); PLATELET COUNT, AUTOMATED 215 10^3/uL (150-450); RED BLOOD COUNT 3.48 10^6/uL (4.00-5.40); WHITE BLOOD COUNT 6.4 10^3/uL (4.0-10.0)
[2019-03-19 11:58] LABS: BLOOD UREA NITROGEN 26 MG/DL (7-18); CALCIUM LEVEL 8.9 MG/DL (8.8-10.2); CARBON DIOXIDE LEVEL 32 MEQ/L (21-32); CHLORIDE LEVEL 103 MEQ/L (98-107); CREATININE FOR GFR 0.83 MG/DL (0.55-1.30); GLOMERULAR FILTRATION RATE > 60.0 (>45); GLUCOSE, FASTING 111 MG/DL (70-100); POTASSIUM SERUM 4.5 MEQ/L (3.5-5.1); SODIUM LEVEL 139 MEQ/L (136-145)
[2019-03-19 12:25] LABS: HEMOGLOBIN A1c 7.3 %
== END ==
PROVIDERS: ATTEND Family Medicine
DX: E11.9 Type 2 diabetes mellitus without complications (principal); D64.9 Anemia, unspecified

== ENCOUNTER → 2019-06-18 | Outpatient (REF) | payer MEDICARE, MEDICAID ==
[2019-06-18 11:52] LABS: HEMATOCRIT 28.1 % (36.0-47.0); HEMOGLOBIN 8.5 g/dl (12.0-15.5); MEAN CORPUSCULAR HEMOGLOBIN 26.2 pg (27.0-33.0); MEAN CORPUSCULAR HGB CONC 30.2 g/dl (32.0-36.5); MEAN CORPUSCULAR VOLUME 86.7 fl (80.0-96.0); PLATELET COUNT, AUTOMATED 207 10^3/uL (150-450); RED BLOOD COUNT 3.24 10^6/uL (4.00-5.40); WHITE BLOOD COUNT 6.2 10^3/uL (4.0-10.0)
[2019-06-18 13:01] LABS: BLOOD UREA NITROGEN 26 MG/DL (7-18); CALCIUM LEVEL 8.9 MG/DL (8.8-10.2); CARBON DIOXIDE LEVEL 30 MEQ/L (21-32); CHLORIDE LEVEL 102 MEQ/L (98-107); CREATININE FOR GFR 0.83 MG/DL (0.55-1.30); GLOMERULAR FILTRATION RATE > 60.0 (>45); GLUCOSE, FASTING 122 MG/DL (70-100); POTASSIUM SERUM 4.6 MEQ/L (3.5-5.1); SODIUM LEVEL 139 MEQ/L (136-145)
[2019-06-18 19:26] LABS: HEMOGLOBIN A1c 6.7 %
== END ==
PROVIDERS: ATTEND Family Medicine
DX: E03.9 Hypothyroidism, unspecified (principal); D64.9 Anemia, unspecified; Z79.899 Other long term (current) drug therapy

== ENCOUNTER → 2019-07-17 | Outpatient (REF) | payer MEDICARE, MEDICAID | PROVIDERS: ATTEND Family Medicine | DX: E03.9 Hypothyroidism, unspecified (principal) ==

== ENCOUNTER → 2019-08-27 | Outpatient (REF) ==
[~2019-08-27] MED LIST changes: +AMLO1TAB24 PO; -AMLO5TAB6 PO; +HYDR-3490 PO; -HYDR25TAB PO; +SYNT100T PO
== END ==
PROVIDERS: ATTEND Internal Medicine
DX: Z03.818 Encounter for observation for suspected exposure to other biological agents ruled out (principal)

== ENCOUNTER → 2019-09-10 | Outpatient (REF) | payer MEDICARE, MEDICAID ==
[~2019-09-10] MED LIST changes: -AMLO1TAB24 PO; +AMLO5TAB6 PO; -HYDR-3490 PO; +HYDR25TAB PO; -SYNT100T PO
[2019-09-10 12:16] LABS: BLOOD UREA NITROGEN 32 MG/DL (7-18); CALCIUM LEVEL 8.8 MG/DL (8.8-10.2); CARBON DIOXIDE LEVEL 27 MEQ/L (21-32); CHLORIDE LEVEL 101 MEQ/L (98-107); CREATININE FOR GFR 0.88 MG/DL (0.55-1.30); GLOMERULAR FILTRATION RATE > 60.0 (>45); GLUCOSE, FASTING 173 MG/DL (70-100); POTASSIUM SERUM 4.2 MEQ/L (3.5-5.1); SODIUM LEVEL 135 MEQ/L (136-145)
== END ==
PROVIDERS: ATTEND Nurse Practitioner Adult Health
DX: I10 Essential (primary) hypertension (principal)

== ENCOUNTER → 2019-09-17 | Outpatient (REF) | payer MEDICARE, MEDICAID ==
[2019-09-17 10:47] LABS: HEMATOCRIT 27.8 % (36.0-47.0); HEMOGLOBIN 8.3 g/dl (12.0-15.5); MEAN CORPUSCULAR HEMOGLOBIN 25.3 pg (27.0-33.0); MEAN CORPUSCULAR HGB CONC 29.9 g/dl (32.0-36.5); MEAN CORPUSCULAR VOLUME 84.8 fl (80.0-96.0); RED BLOOD COUNT 3.28 10^6/uL (4.00-5.40)
[2019-09-17 10:49] LABS: PLATELET COUNT, AUTOMATED 83 10^3/uL (150-450)
[2019-09-17 11:18] LABS: BLOOD UREA NITROGEN 40 MG/DL (7-18); CALCIUM LEVEL 8.7 MG/DL (8.8-10.2); CARBON DIOXIDE LEVEL 28 MEQ/L (21-32); CHLORIDE LEVEL 103 MEQ/L (98-107); CREATININE FOR GFR 0.99 MG/DL (0.55-1.30); FERRITIN 24 NG/ML (8-252); GLOMERULAR FILTRATION RATE 59.6 (>45); GLUCOSE, FASTING 110 MG/DL (70-100); IRON (FE) 52 UG/DL (50-170); PERCENT SATURATION 14.1 % (13.2-45.0); POTASSIUM SERUM 5.3 MEQ/L (3.5-5.1); SODIUM LEVEL 137 MEQ/L (136-145); TOTAL IRON BINDING CAPACITY 368 UG/DL (250-450)
[2019-09-17 11:34] LABS: FOLATE > 24.0 NG/ML (>5.4)
[2019-09-19 14:12] LABS: VITAMIN B12 LEVEL 567 PG/ML (247-911)
== END ==
PROVIDERS: ATTEND Family Medicine
DX: D64.9 Anemia, unspecified (principal); E03.9 Hypothyroidism, unspecified; E11.9 Type 2 diabetes mellitus without complications; Z79.899 Other long term (current) drug therapy

== ENCOUNTER → 2019-09-23 | Outpatient (REF) | payer MEDICARE, MEDICAID | PROVIDERS: ATTEND Family Medicine | DX: D64.9 Anemia, unspecified (principal) ==

== ENCOUNTER → 2019-10-01 | Outpatient (REF) | payer MEDICARE, MEDICAID ==
[2019-10-01 09:16] LABS: BASO % 0.3 % (0.0-1.0); EOS # 0.2 10^3/uL (0.0-0.5); EOS % 2.5 % (0.0-3.0); HEMATOCRIT 31.3 % (36.0-47.0); HEMOGLOBIN 9.4 g/dl (12.0-15.5); LYMPH # 1.9 10^3/uL (1.5-5.0); LYMPH % 29.4 % (24.0-44.0); MEAN CORPUSCULAR HEMOGLOBIN 25.3 pg (27.0-33.0); MEAN CORPUSCULAR VOLUME 84.1 fl (80.0-96.0); MONO # 0.6 10^3/uL (0.0-0.8); MONO % 9.9 % (0.0-5.0); NEUTROPHILS # 3.7 10^3/uL (1.5-8.5); NEUTROPHILS % 57.6 % (36.0-66.0); PLATELET COUNT, AUTOMATED 203 10^3/uL (150-450); RED BLOOD COUNT 3.72 10^6/uL (4.00-5.40); WHITE BLOOD COUNT 6.4 10^3/uL (4.0-10.0)
== END ==
PROVIDERS: ATTEND Family Medicine
DX: D64.9 Anemia, unspecified (principal)

== ENCOUNTER → 2019-10-09 | Outpatient (REF) | payer MEDICARE, MEDICAID ==
[~2019-10-09] MED LIST changes: +SYNT100T PO
[2019-10-09 10:00] LABS: HEMATOCRIT 30.7 % (36.0-47.0); MEAN CORPUSCULAR HGB CONC 29.3 g/dl (32.0-36.5); MEAN CORPUSCULAR VOLUME 85.3 fl (80.0-96.0); PLATELET COUNT, AUTOMATED 199 10^3/uL (150-450); WHITE BLOOD COUNT 6.3 10^3/uL (4.0-10.0)
== END ==
PROVIDERS: ATTEND Family Medicine
DX: D64.9 Anemia, unspecified (principal)

== ENCOUNTER → 2019-11-05 | Outpatient (REF) | payer MEDICARE, MEDICAID ==
[~2019-11-05] MED LIST changes: +AMLO1TAB24 PO; -AMLO5TAB6 PO
== END ==
PROVIDERS: ATTEND Internal Medicine
DX: E03.9 Hypothyroidism, unspecified (principal)

== ENCOUNTER → 2019-11-25 | Outpatient (REF) | payer MEDICARE, MEDICAID ==
[2019-12-28 09:19] LABS: CALCIUM LEVEL 8.6 MG/DL (8.8-10.2); CREATININE FOR GFR 2.17 MG/DL (0.55-1.30); POTASSIUM SERUM 6.8 MEQ/L (3.5-5.1)
== END ==
PROVIDERS: ATTEND Family Medicine
DX: E03.9 Hypothyroidism, unspecified (principal); D64.9 Anemia, unspecified; D69.6 Thrombocytopenia, unspecified

== ENCOUNTER → 2019-11-26 | Outpatient (REF) | payer MEDICARE, MEDICAID ==
[2019-12-27 13:49] LABS: HEMATOCRIT 25.7 % (36.0-47.0); HEMOGLOBIN 7.6 g/dl (12.0-15.5); MEAN CORPUSCULAR HEMOGLOBIN 26.1 pg (27.0-33.0); MEAN CORPUSCULAR HGB CONC 29.6 g/dl (32.0-36.5); MEAN CORPUSCULAR VOLUME 88.3 fl (80.0-96.0); PLATELET COUNT, AUTOMATED 139 10^3/uL (150-450); RED BLOOD COUNT 2.91 10^6/uL (4.00-5.40); WHITE BLOOD COUNT 22.7 10^3/uL (4.0-10.0)
[2020-01-15 04:41] LABS: APPEARANCE, URINE HAZY (CLEAR); BACTERIA, URINE AUTO 1+ (NEGATIVE); BILIRUBIN, URINE AUTO NEGATIVE (NEGATIVE); BLOOD, URINE BLOOD NEGATIVE (NEGATIVE); COLOR, URINE YELLOW (YELLOW); GLUCOSE, URINE (UA) AUTO NEGATIVE (NEGATIVE); KETONE, URINE AUTO NEGATIVE (NEGATIVE); LEUKOCYTE ESTERASE, URINE AUTO NEGATIVE (NEGATIVE); MUCUS, URINE SMALL (NEGATIVE); NITRITE, URINE AUTO NEGATIVE (NEGATIVE); PROTEIN, URINE AUTO NEGATIVE (NEGATIVE); RBC, URINE AUTO 5 /HPF (0-3); SPECIFIC GRAVITY URINE AUTO 1.023 (1.002-1.035); SQUAMOUS EPITHELIAL CELL UR AU 1 /HPF (0-6); UROBILINOGEN, URINE AUTO 0.2 mg/dL (0.0-2.0); WBC, URINE AUTO 0 /HPF (0-3)
== END ==
PROVIDERS: ATTEND Internal Medicine
DX: K42.9 Umbilical hernia without obstruction or gangrene (principal); Z79.899 Other long term (current) drug therapy

== ENCOUNTER → 2019-11-27 | Outpatient (REF) | payer MEDICARE, MEDICAID ==
[2019-12-24 10:19] LABS: BASO % 0.2 % (0.0-1.0); EOS # 0.1 10^3/uL (0.0-0.5); EOS % 0.8 % (0.0-3.0); HEMATOCRIT 21.4 % (36.0-47.0); LYMPH # 1.2 10^3/uL (1.5-5.0); LYMPH % 9.5 % (24.0-44.0); MEAN CORPUSCULAR HEMOGLOBIN 26.2 pg (27.0-33.0); MEAN CORPUSCULAR HGB CONC 30.8 g/dl (32.0-36.5); MEAN CORPUSCULAR VOLUME 84.9 fl (80.0-96.0); MONO # 0.9 10^3/uL (0.0-0.8); MONO % 7.2 % (0.0-5.0); NEUTROPHILS # 10.7 10^3/uL (1.5-8.5); NEUTROPHILS % 81.5 % (36.0-66.0); PLATELET COUNT, AUTOMATED 190 10^3/uL (150-450); RED BLOOD COUNT 2.52 10^6/uL (4.00-5.40); WHITE BLOOD COUNT 13.1 10^3/uL (4.0-10.0)
[2019-12-24 10:20] LABS: HEMOGLOBIN 6.6 g/dl (12.0-15.5)
[2020-01-13 21:43] LABS: CALCIUM LEVEL 7.8 MG/DL (8.8-10.2); CREATININE FOR GFR 1.93 MG/DL (0.55-1.30); GLOMERULAR FILTRATION RATE 27.5 (>45); POTASSIUM SERUM 4.2 MEQ/L (3.5-5.1)
== END ==
PROVIDERS: ATTEND Internal Medicine
DX: D69.6 Thrombocytopenia, unspecified (principal)

== ENCOUNTER 2019-11-28 08:31 | Outpatient (CLI) | payer MEDICARE, MEDICAID ==
[2019-11-28] VITALS (10 sets, daily range): BP systolic 102–125; BP diastolic 52–61
[~2019-11-28] VITALS: Ht 137.2 cm; Wt 119.0 kg
[2019-11-28] MEDS ORDERED: FUROSEMIDE 20 MG TAB PO ONE (09:30)
[2019-11-28] MEDS ORDERED: FUROSEMIDE 20 MG TAB As Ordered ONE (12:55)
== END 2019-11-28 16:00 | disposition home or self-care (01) ==
LOC: M INFU 08:31
PROVIDERS: ATTEND Nurse Practitioner
DX: D64.9 Anemia, unspecified (principal)

== ENCOUNTER → 2019-11-28 | Outpatient (CLI) | payer MEDICARE, MEDICAID ==
--- NOTE | 2019-12-30 10:12 | REP ---
CT OF THE ABDOMEN AND PELVIS WITHOUT IV OR BOWEL CONTRAST: HISTORY: Ventral hernia. COMPARISON: None available. FINDINGS: There is a large midline ventral hernia containing large and small bowel loops. There is no evidence of bowel obstruction or strangulation. The abdominal wall defect measures 8.1 cm transversely x 3.9 cm craniocaudad. The hernia sac measures 21 cm transversely x 14 cm AP. The visualized lower lung zaman demonstrate bibasilar atelectasis/infiltrate and mild pleural thickening. The unenhanced hepatic parenchyma is homogeneous. There are two gallbladder calculi, one measuring up to 4.2 cm and the other 2.7 cm. There is no gallbladder wall thickening or pericholecystic fluid. There is no biliary duct dilatation. The unenhanced pancreas and spleen are unremarkable. The adrenals are unremarkable. The unenhanced kidneys are unremarkable. The bowel and mesentery are unremarkable except for the midline ventral hernia. PELVIS: There is a Stein catheter. The bladder is collapsed. The uterus and adnexa are not optimally demonstrated. There is questionably a uterine fibroid versus the uterine fundus tilted to the right. There is no pelvic adenopathy or ascites. The pelvic bowel loops are unremarkable. IMPRESSION: There is a large midline ventral hernia, as described. There is no evidence of bowel obstruction or strangulation. Cholelithiasis. Atelectasis/small infiltrates and pleural thickening in the lower lung zaman bilaterally. Stein catheter. Uterus and adnexa poorly visualized. Questionable uterine fibroid versus uterine fundus tilted toward the right. There are densities in the adnexa bilaterally, calcifications versus surgical clips. MTDD
--- NOTE | 2019-12-30 10:14 | REP ---
CHEST X-RAY: TWO VIEWS HISTORY: Umbilical hernia. Low oxygen saturation. COMPARISON: Chest x-ray 03/20/2018. FINDINGS: Sitting AP and lateral views done in a wheelchair demonstrate bibasilar discoid atelectasis new on the right compared with the 03/2018 study and more prominent on the left. There is cardiomegaly again noted, unchanged. No definite infiltrate. No evidence of effusion. IMPRESSION: Moderate bibasilar plate-like atelectasis. No focal infiltrate. Cardiomegaly. MTDD
== END ==
LOC: M RAD 08:40
PROVIDERS: ATTEND Surgery
DX: K43.9 Ventral hernia without obstruction or gangrene (principal); I51.7 Cardiomegaly; J98.11 Atelectasis; K80.50 Calculus of bile duct without cholangitis or cholecystitis without obstruction; Z96.0 Presence of urogenital implants
CPT/HCPCS: 36430; 71046; 74176; 86850; 86900; 86901; 86920; P9016

== ENCOUNTER → 2019-11-29 | Outpatient (REF) | payer MEDICARE, MEDICAID ==
[2019-11-29 09:03] LABS: BASO % 0.2 % (0.0-1.0); CREATININE FOR GFR 1.21 MG/DL (0.55-1.30); EOS # 0.2 10^3/uL (0.0-0.5); EOS % 1.7 % (0.0-3.0); GLOMERULAR FILTRATION RATE 47.2 (>45); HEMATOCRIT 27.6 % (36.0-47.0); HEMOGLOBIN 8.9 g/dl (12.0-15.5); LYMPH # 1.2 10^3/uL (1.5-5.0); LYMPH % 12.6 % (24.0-44.0); MEAN CORPUSCULAR HEMOGLOBIN 27.1 pg (27.0-33.0); MEAN CORPUSCULAR HGB CONC 32.2 g/dl (32.0-36.5); MEAN CORPUSCULAR VOLUME 83.9 fl (80.0-96.0); MONO # 1.1 10^3/uL (0.0-0.8); MONO % 10.9 % (0.0-5.0); NEUTROPHILS # 7.2 10^3/uL (1.5-8.5); PLATELET COUNT, AUTOMATED 219 10^3/uL (150-450); POTASSIUM SERUM 4.1 MEQ/L (3.5-5.1); RED BLOOD COUNT 3.29 10^6/uL (4.00-5.40); WHITE BLOOD COUNT 9.8 10^3/uL (4.0-10.0)
== END ==
PROVIDERS: ATTEND Internal Medicine
DX: D64.9 Anemia, unspecified (principal)

== ENCOUNTER → 2019-11-30 | Outpatient (REF) | payer MEDICARE, MEDICAID | PROVIDERS: ATTEND Family Medicine | DX: D64.9 Anemia, unspecified (principal) ==

== ENCOUNTER → 2019-12-01 | Outpatient (REF) | payer MEDICARE, MEDICAID | PROVIDERS: ATTEND Internal Medicine | DX: R19.8 Other specified symptoms and signs involving the digestive system and abdomen (principal) ==

== ENCOUNTER → 2019-12-02 | Outpatient (REF) | payer MEDICARE, MEDICAID ==
[2019-12-02 11:43] LABS: HEMATOCRIT 29.7 % (36.0-47.0); HEMOGLOBIN 9.2 g/dl (12.0-15.5); MEAN CORPUSCULAR HEMOGLOBIN 27.2 pg (27.0-33.0); MEAN CORPUSCULAR VOLUME 87.9 fl (80.0-96.0); PLATELET COUNT, AUTOMATED 249 10^3/uL (150-450); RED BLOOD COUNT 3.38 10^6/uL (4.00-5.40)
[2019-12-02 12:06] LABS: BLOOD UREA NITROGEN 20 MG/DL (7-18); CALCIUM LEVEL 8.2 MG/DL (8.8-10.2); CARBON DIOXIDE LEVEL 25 MEQ/L (21-32); CHLORIDE LEVEL 103 MEQ/L (98-107); CREATININE FOR GFR 0.88 MG/DL (0.55-1.30); GLOMERULAR FILTRATION RATE > 60.0 (>45); GLUCOSE, FASTING 149 MG/DL (70-100); POTASSIUM SERUM 4.8 MEQ/L (3.5-5.1); SODIUM LEVEL 135 MEQ/L (136-145)
== END ==
PROVIDERS: ATTEND Internal Medicine
DX: D64.9 Anemia, unspecified (principal)

== ENCOUNTER → 2019-12-04 | Outpatient (REF) ==
[2019-12-04 10:34] LABS: HEMATOCRIT 30.3 % (36.0-47.0); HEMOGLOBIN 9.1 g/dl (12.0-15.5); MEAN CORPUSCULAR HEMOGLOBIN 26.5 pg (27.0-33.0); MEAN CORPUSCULAR VOLUME 88.1 fl (80.0-96.0); PLATELET COUNT, AUTOMATED 292 10^3/uL (150-450); RED BLOOD COUNT 3.44 10^6/uL (4.00-5.40); WHITE BLOOD COUNT 7.8 10^3/uL (4.0-10.0)
[2019-12-04 10:59] LABS: BLOOD UREA NITROGEN 26 MG/DL (7-18); CALCIUM LEVEL 8.5 MG/DL (8.8-10.2); CARBON DIOXIDE LEVEL 25 MEQ/L (21-32); CHLORIDE LEVEL 107 MEQ/L (98-107); CREATININE FOR GFR 0.97 MG/DL (0.55-1.30); GLOMERULAR FILTRATION RATE > 60.0 (>45); GLUCOSE, FASTING 100 MG/DL (70-100); SODIUM LEVEL 139 MEQ/L (136-145)
== END ==
PROVIDERS: ATTEND Nurse Practitioner Adult Health
DX: D64.9 Anemia, unspecified (principal)

== ENCOUNTER → 2019-12-23 | Outpatient (REF) | payer MEDICARE, MEDICAID ==
[2019-12-23 11:02] LABS: HEMATOCRIT 26.2 % (36.0-47.0); HEMOGLOBIN 7.9 g/dl (12.0-15.5); MEAN CORPUSCULAR HEMOGLOBIN 26.5 pg (27.0-33.0); MEAN CORPUSCULAR HGB CONC 30.2 g/dl (32.0-36.5); MEAN CORPUSCULAR VOLUME 87.9 fl (80.0-96.0); PLATELET COUNT, AUTOMATED 269 10^3/uL (150-450); RED BLOOD COUNT 2.98 10^6/uL (4.00-5.40); WHITE BLOOD COUNT 7.8 10^3/uL (4.0-10.0)
[2019-12-23 11:50] LABS: CALCIUM LEVEL 9.1 MG/DL (8.8-10.2); CREATININE FOR GFR 1.05 MG/DL (0.55-1.30); GLOMERULAR FILTRATION RATE 55.5 (>45); POTASSIUM SERUM 3.7 MEQ/L (3.5-5.1); THYROID STIMULATING HORMONE 4.85 uIU/ML (0.358-3.740)
== END ==
PROVIDERS: ATTEND Internal Medicine
DX: E03.9 Hypothyroidism, unspecified (principal); E11.9 Type 2 diabetes mellitus without complications; D64.9 Anemia, unspecified

== ENCOUNTER → 2020-01-22 | Outpatient (REF) | payer MEDICARE, MEDICAID | PROVIDERS: ATTEND Nurse Practitioner Adult Health | DX: E03.9 Hypothyroidism, unspecified (principal) ==

== ENCOUNTER → 2020-02-04 | Outpatient (REF) | payer MEDICARE, MEDICAID ==
[2020-02-04 10:28] LABS: HEMATOCRIT 25.4 % (36.0-47.0); HEMOGLOBIN 7.6 g/dl (12.0-15.5); MEAN CORPUSCULAR HEMOGLOBIN 25.8 pg (27.0-33.0); MEAN CORPUSCULAR HGB CONC 29.9 g/dl (32.0-36.5); MEAN CORPUSCULAR VOLUME 86.1 fl (80.0-96.0); PLATELET COUNT, AUTOMATED 258 10^3/uL (150-450); RED BLOOD COUNT 2.95 10^6/uL (4.00-5.40); WHITE BLOOD COUNT 10.1 10^3/uL (4.0-10.0)
[2020-02-04 10:51] LABS: BILIRUBIN,TOTAL 0.2 MG/DL (0.2-1.0); CALCIUM LEVEL 8.1 MG/DL (8.8-10.2); CREATININE FOR GFR 1.45 MG/DL (0.55-1.30); GLOMERULAR FILTRATION RATE 38.2 (>45); POTASSIUM SERUM 3.3 MEQ/L (3.5-5.1); TOTAL PROTEIN 6.3 GM/DL (6.4-8.2)
== END ==
PROVIDERS: ATTEND Internal Medicine
DX: R60.9 Edema, unspecified (principal)

== ENCOUNTER → 2020-02-10 | Outpatient (REF) | payer MEDICARE, MEDICAID ==
[2020-02-10 09:32] LABS: HEMATOCRIT 27.8 % (36.0-47.0); HEMOGLOBIN 8.3 g/dl (12.0-15.5); MEAN CORPUSCULAR HEMOGLOBIN 26.2 pg (27.0-33.0); MEAN CORPUSCULAR HGB CONC 29.9 g/dl (32.0-36.5); MEAN CORPUSCULAR VOLUME 87.7 fl (80.0-96.0); PLATELET COUNT, AUTOMATED 306 10^3/uL (150-450); RED BLOOD COUNT 3.17 10^6/uL (4.00-5.40); WHITE BLOOD COUNT 5.9 10^3/uL (4.0-10.0)
[2020-02-10 09:54] LABS: CREATININE FOR GFR 1.09 MG/DL (0.55-1.30); GLOMERULAR FILTRATION RATE 53.1 (>45)
== END ==
PROVIDERS: ATTEND Internal Medicine
DX: L97.909 Non-pressure chronic ulcer of unspecified part of unspecified lower leg with unspecified severity (principal); R60.9 Edema, unspecified

== ENCOUNTER → 2020-02-20 | Outpatient (REF) | PROVIDERS: ATTEND Internal Medicine | DX: Z20.828 Contact with and (suspected) exposure to other viral communicable diseases (principal) ==

== ENCOUNTER → 2020-02-27 | Outpatient (REF) | payer MEDICARE, MEDICAID ==
[~2020-02-27] MED LIST changes: +HYDR-3490 PO; -HYDR25TAB PO
== END ==
LOC: EDSTATUS 04-07 07:07
PROVIDERS: ATTEND Internal Medicine
DX: Z20.828 Contact with and (suspected) exposure to other viral communicable diseases (principal)

== ENCOUNTER → 2020-03-04 | Outpatient (REF) | payer MEDICARE, MEDICAID | PROVIDERS: ATTEND Internal Medicine | DX: Z20.828 Contact with and (suspected) exposure to other viral communicable diseases (principal) ==

== ENCOUNTER → 2020-03-16 | Outpatient (REF) | payer MEDICARE, MEDICAID ==
[~2020-03-16] MED LIST changes: -HYDR-3490 PO; +HYDR25TAB PO
[2020-03-16 10:15] LABS: HEMATOCRIT 32.5 % (36.0-47.0); HEMOGLOBIN 9.8 g/dl (12.0-15.5); MEAN CORPUSCULAR HEMOGLOBIN 27.8 pg (27.0-33.0); MEAN CORPUSCULAR HGB CONC 30.2 g/dl (32.0-36.5); MEAN CORPUSCULAR VOLUME 92.3 fl (80.0-96.0); PLATELET COUNT, AUTOMATED 221 10^3/uL (150-450); RED BLOOD COUNT 3.52 10^6/uL (4.00-5.40); WHITE BLOOD COUNT 6.3 10^3/uL (4.0-10.0)
[2020-03-16 10:56] LABS: BLOOD UREA NITROGEN 17 MG/DL (7-18); CALCIUM LEVEL 8.5 MG/DL (8.8-10.2); CARBON DIOXIDE LEVEL 34 MEQ/L (21-32); CHLORIDE LEVEL 98 MEQ/L (98-107); CREATININE FOR GFR 0.96 MG/DL (0.55-1.30); GLOMERULAR FILTRATION RATE > 60.0 (>45); GLUCOSE, FASTING 127 MG/DL (70-100); POTASSIUM SERUM 3.2 MEQ/L (3.5-5.1); SODIUM LEVEL 139 MEQ/L (136-145)
[2020-03-16 11:42] LABS: HEMOGLOBIN A1c 6.2 %
== END ==
PROVIDERS: ATTEND Internal Medicine
DX: R60.9 Edema, unspecified (principal); E11.9 Type 2 diabetes mellitus without complications; D64.9 Anemia, unspecified; Z79.899 Other long term (current) drug therapy

== ENCOUNTER → 2020-03-18 | Outpatient (REF) | payer MEDICARE, MEDICAID | PROVIDERS: ATTEND Nurse Practitioner Adult Health | DX: E87.5 Hyperkalemia (principal) ==

== ENCOUNTER → 2020-03-22 | Outpatient (REF) | payer MEDICARE, MEDICAID | PROVIDERS: ATTEND Internal Medicine | DX: Z20.828 Contact with and (suspected) exposure to other viral communicable diseases (principal) ==

== ENCOUNTER → 2020-03-26 | Outpatient (REF) | payer MEDICARE, MEDICAID | PROVIDERS: ATTEND Internal Medicine | DX: Z20.828 Contact with and (suspected) exposure to other viral communicable diseases (principal) ==

== ENCOUNTER → 2020-04-01 | Outpatient (REF) | payer MEDICARE, MEDICAID | PROVIDERS: ATTEND Internal Medicine | DX: Z20.828 Contact with and (suspected) exposure to other viral communicable diseases (principal) ==

== ENCOUNTER → 2020-04-06 | Outpatient (REF) | payer MEDICARE, MEDICAID ==
[2020-04-06 14:07] LABS: RSV AMPLIFICATION NEGATIVE (NEGATIVE)
== END ==
PROVIDERS: ATTEND Internal Medicine
DX: Z20.828 Contact with and (suspected) exposure to other viral communicable diseases (principal)

== ENCOUNTER → 2020-04-13 | Outpatient (REF) | payer MEDICARE, MEDICAID | PROVIDERS: ATTEND Internal Medicine | DX: Z20.828 Contact with and (suspected) exposure to other viral communicable diseases (principal) ==

== ENCOUNTER → 2020-04-17 | Outpatient (REF) | payer MEDICARE, MEDICAID | PROVIDERS: ATTEND Internal Medicine | DX: Z20.828 Contact with and (suspected) exposure to other viral communicable diseases (principal) ==

== ENCOUNTER → 2020-04-22 | Outpatient (REF) | payer MEDICARE, MEDICAID ==
--- NOTE | 2020-04-22 17:59 | REPPI ---
INDICATION: ROOM S118-1 COVID 19. COMPARISON: 11/28/2019. TECHNIQUE: Single view of the chest is performed. FINDINGS: There are diffuse bilateral infiltrates which are new when compared to the prior study. There appears to be cardiomegaly. IMPRESSION: Diffuse bilateral infiltrates present. <Electronically signed by Rohan Cardenas > 04/22/20 [id number]
== END ==
PROVIDERS: ATTEND Nurse Practitioner Adult Health
DX: R91.8 Other nonspecific abnormal finding of lung field (principal); I51.7 Cardiomegaly; U07.1 COVID-19

== ENCOUNTER → 2020-04-30 | Outpatient (REF) | payer MEDICARE, MEDICAID ==
[~2020-04-30] MED LIST changes: +HYDR-3490 PO; -HYDR25TAB PO
== END ==
PROVIDERS: ATTEND Nurse Practitioner Adult Health
DX: E03.9 Hypothyroidism, unspecified (principal)

== ENCOUNTER → 2020-05-14 | Outpatient (REF) | payer MEDICARE, MEDICAID ==
[~2020-05-14] MED LIST changes: -HYDR-3490 PO; +HYDR25TAB PO
--- NOTE | 2020-05-14 15:59 | REPPI ---
INDICATION: R/O COVID 160-1. COMPARISON: 04/22/2020. TECHNIQUE: SINGLE AP VIEW OF THE CHEST WAS PERFORMED. FINDINGS: There is poor ventilation. There are diffuse bilateral infiltrates again noted which appear grossly unchanged compared to the prior study. The heart mediastinum appear grossly unchanged. IMPRESSION: Bilateral infiltrates are grossly unchanged. <Electronically signed by Rohan Cardenas > 05/14/20 [id number]
== END ==
PROVIDERS: ATTEND Nurse Practitioner Adult Health
DX: R91.8 Other nonspecific abnormal finding of lung field (principal)

== ENCOUNTER → 2020-05-15 | Outpatient (REF) | payer MEDICARE, MEDICAID ==
[~2020-05-15] MED LIST changes: +HYDR-3490 PO; -HYDR25TAB PO
[2020-05-15 09:49] LABS: HEMATOCRIT 32.7 % (36.0-47.0); HEMOGLOBIN 9.9 g/dl (12.0-15.5); MEAN CORPUSCULAR HEMOGLOBIN 27.9 pg (27.0-33.0); MEAN CORPUSCULAR HGB CONC 30.3 g/dl (32.0-36.5); MEAN CORPUSCULAR VOLUME 92.1 fl (80.0-96.0); PLATELET COUNT, AUTOMATED 203 10^3/uL (150-450); RED BLOOD COUNT 3.55 10^6/uL (4.00-5.40); WHITE BLOOD COUNT 6.6 10^3/uL (4.0-10.0)
[2020-05-15 10:01] LABS: CALCIUM LEVEL 8.7 MG/DL (8.8-10.2); CREATININE FOR GFR 1.02 MG/DL (0.55-1.30); GLOMERULAR FILTRATION RATE 57.4 (>45); POTASSIUM SERUM 3.2 MEQ/L (3.5-5.1)
== END ==
PROVIDERS: ATTEND Nurse Practitioner Adult Health
DX: J18.9 Pneumonia, unspecified organism (principal); F32.89 Other specified depressive episodes; F41.1 Generalized anxiety disorder; G47.09 Other insomnia

== ENCOUNTER → 2020-05-22 | Outpatient (CLI) | payer MEDICARE, MEDICAID ==
--- NOTE | 2020-05-22 09:03 | REP ---
INDICATION: CHRONIC BILATERAL INFILTRATES. COMPARISON: Comparison chest x-rays are from 22 April 2020 and 12 July 2020.. TECHNIQUE: Helical scanning is acquired. 3 mm axial images are generated. Coronal and sagittal MPR and coronal MIP images are generated. FINDINGS: Preliminary digital plant packer radiograph demonstrates diffuse interstitial lung disease pattern. On axial images, there is a coarse pattern of multifocal fibrotic change and interstitial infiltrate. The right lower lobe is most prominently involved. There is involvement of the right middle lobe and right upper lobe as well. The left upper lobe and left lower lobe are also involved but somewhat less extensively. There is no evidence of pleural effusion or pericardial effusion. Main pulmonary artery is somewhat prominent measuring 3.8 cm in greatest transverse dimension. No adrenal lesion is seen. There are 2 peripherally calcified large gallstones in the gallbladder. There are 2 small hepatic cysts. No endotracheal or endobronchial lesion is seen. Tracheobronchial cartilages are calcified. There is mild bronchiectasis. IMPRESSION: Multifocal areas of interstitial infiltrate and fibrosis changes right lung greater than left. Bronchiectasis. Cholelithiasis. <Electronically signed by Juan Carlos Jacques > 05/22/20 [id number]
== END ==
LOC: M RAD 08:17
PROVIDERS: ATTEND Nurse Practitioner Adult Health
DX: J47.9 Bronchiectasis, uncomplicated (principal); K80.20 Calculus of gallbladder without cholecystitis without obstruction; R91.8 Other nonspecific abnormal finding of lung field

== ENCOUNTER → 2020-06-05 | Outpatient (CLI) | payer MEDICARE, MEDICAID ==
[~2020-06-05] MED LIST changes: -FOLI400T PO; +FOLI400T13 PO
--- NOTE | 2020-06-05 09:30 | REP ---
INDICATION: ASIA INFILTRATES. COMPARISON: CT 05/22/2020, AP chest 05/14/2020, two view 11/28/2019 TECHNIQUE: Noncontrast images with coronal and sagittal reconstructions provided. FINDINGS: Study again shows a diffuse coarsened fibrotic change throughout but greatest in the right lower lobe. Some of the more consolidated infiltrative areas seen peripherally are less dense but the extent of interstitial infiltrates appears slightly greater. There is a trace right pleural effusion. Findings are somewhat less on the left than the right side and greatest in the lower lobe on the right. There is no pneumothorax, pneumothorax pleural based mass. Extensive the areas of curvilinear peripheral fibrotic change as before. No left effusion. No calcified pleural plaque or diaphragmatic plaque. Heart is enlarged. There is left atrial and ventricular enlargement and trace pericardial effusion posteriorly there are some coronary artery calcifications calcifications at the aortic root arch and descending aorta. No gross aortic aneurysm. The main pulmonary artery and both right and left pulmonary arteries in the mediastinum mildly prominent and may reflect some degree of pulmonary artery hypertension, presumably on the basis of COPD. Liver shows simple cyst lateral segment left hepatic lobe about 13 mm unchanged. A smaller 1 cm cyst in the right hepatic lobe also stable. No biliary dilatation. Left lobe of liver mildly prominent. No splenomegaly. No hiatal hernia. Adrenal glands normal. Upper poles of kidneys seen in limited fashion as is the pancreas, grossly intact. There are multiple large calcified stones in the dependent gallbladder. No changes in the bony thorax. IMPRESSION: 1. Coarse fibrotic changes in both lungs as before with some of the more peripheral consolidative interstitial infiltrates less dense but more somewhat more extensive areas of interstitial infiltrate today than 2 weeks ago. Trace right effusion now present. No left effusion, pleural plaque, calcified plaque or apical pleural thickening. Some bronchiectatic change again seen. 2. Cardiomegaly with left atrial and ventricular enlargement and some trace pericardial fluid. There are coronary artery calcifications and calcifications at the aortic root, arch and descending aorta without aneurysm. 3. Central pulmonary arteries prominent suggesting pulmonary artery hypertension, presumably on the basis of COPD 4. Cholelithiasis. Diffuse simple cysts in the liver. <Electronically signed by Atilio Calvillo > 06/05/20 [id number]
== END ==
LOC: M RAD 08:26
PROVIDERS: ATTEND Nurse Practitioner Adult Health
DX: J84.10 Pulmonary fibrosis, unspecified (principal); I51.7 Cardiomegaly

== ENCOUNTER → 2020-06-17 | Outpatient (REF) | payer MEDICARE, MEDICAID ==
[2020-06-17 12:12] LABS: HEMATOCRIT 29.1 % (36.0-47.0); HEMOGLOBIN 9.2 g/dl (12.0-15.5); MEAN CORPUSCULAR HEMOGLOBIN 28.8 pg (27.0-33.0); MEAN CORPUSCULAR HGB CONC 31.6 g/dl (32.0-36.5); MEAN CORPUSCULAR VOLUME 90.9 fl (80.0-96.0); PLATELET COUNT, AUTOMATED 251 10^3/uL (150-450); WHITE BLOOD COUNT 7.3 10^3/uL (4.0-10.0)
[2020-06-17 12:43] LABS: BLOOD UREA NITROGEN 21 MG/DL (7-18); CARBON DIOXIDE LEVEL 30 MEQ/L (21-32); CHLORIDE LEVEL 96 MEQ/L (98-107); CREATININE FOR GFR 0.94 MG/DL (0.55-1.30); GLOMERULAR FILTRATION RATE > 60.0 (>45); GLUCOSE, FASTING 212 MG/DL (70-100); POTASSIUM SERUM 3.5 MEQ/L (3.5-5.1); SODIUM LEVEL 136 MEQ/L (136-145)
[2020-06-17 13:47] LABS: HEMOGLOBIN A1c 7.3 %
== END ==
PROVIDERS: ATTEND Nurse Practitioner Adult Health
DX: D64.9 Anemia, unspecified (principal); Z79.899 Other long term (current) drug therapy

== ENCOUNTER → 2020-06-17 | Outpatient (CLI) | payer MEDICARE, MEDICAID ==
--- NOTE | 2020-06-17 08:49 | REP ---
INDICATION: RIGHT UPPER QUAD PAIN. COMPARISON: Comparison CT images November 28, 2019.. TECHNIQUE: Right upper quadrant sonography. FINDINGS: Scanning through the right upper quadrant the abdomen demonstrates shadowing calculi occupying much of the lumen of the gallbladder. Gallbladder wall is thickened to 0.4 cm. The largest stone in the gallbladder measures 2.8 cm. There is echogenic sludge in the gallbladder is well. Common bile duct is borderline measuring 0.6 cm in greatest diameter. Limited views of pancreas show no abnormality. Liver texture is slightly coarse. There are 2 cystic areas in the liver. A 1.0 cm cyst is noted the right lobe and a 1.7 cm cyst is visible in the left lobe. No other focal liver lesion is seen. There is no evidence of ascites. No right renal abnormality is noted. The right kidney measures 9.0 x 5.0 x 5.6 cm. IMPRESSION: Cholelithiasis with multiple stones in the gallbladder. Gallbladder wall thickening. Borderline CBD, 0.6 cm. Two small cysts in the liver. Otherwise negative.. <Electronically signed by Juan Carlos Jacques > 06/17/20 [id number]
== END ==
LOC: M RAD 08:05
PROVIDERS: ATTEND Nurse Practitioner Adult Health
DX: R10.11 Right upper quadrant pain (principal); D64.9 Anemia, unspecified; Z79.899 Other long term (current) drug therapy

== ENCOUNTER → 2020-06-26 | Outpatient (CLI) | payer MEDICARE, MEDICAID ==
--- NOTE | 2020-06-26 12:42 | REP ---
INDICATION: RUQ PAIN/ PT IS IN CT WAITING AREA REG NEEDS FORMS [id number]. 11/28/2019 COMPARISON: 11/28/2019. TECHNIQUE: Abdomen/pelvis CT without IV or bowel contrast. FINDINGS: Within the visualized lower lung zaman there is chronic bibasilar atelectasis versus scarring and chronic mild pleural thickening, similar to the prior study. The unenhanced hepatic parenchyma is again unremarkable except for a 14 mm hypodensity in the left lobe, possibly a cyst. There are 2 gallbladder calculi with rim calcification as previously. The 1 in the gallbladder fundus measures up to 2.8 cm and the other near the gallbladder neck measures up to 2.6 cm. There is no definite pericholecystic fluid. However, there is new stranding in the mesentery along the medial margin of the gallbladder extending inferiorly and medially to the duodenal loop as an interval change. This may be evidence for cholecystitis and should be correlated with other clinical findings. There is no biliary duct dilatation. There is fatty atrophy of the pancreas as previously. The pancreas is otherwise unremarkable. Spleen is normal size and unremarkable. The adrenals and kidneys are unchanged and unremarkable. The abdominal aorta is unremarkable. There is no bowel distention or obstruction. There is a large ventral hernia containing large bowel and small bowel loops as previously. It is not significantly changed in size. Pelvis: The Stein catheter in the bladder previously has been removed. There is again a questionable uterine fibroid versus artifact from uterus tilted to the right. This is unchanged. There calcifications in the adnexa bilaterally, unchanged. There is no ascites or adenopathy. The pelvic bowel loops are unremarkable. IMPRESSION: Cholelithiasis as previously. However, there is stranding into the mesentery along the medial margin of the gallbladder extending toward the duodenum as an interval change, possibly representing interval development of acute cholecystitis. There is no pericholecystic fluid. There is no ascites. Otherwise, no interval change. The known large ventral hernia is unchanged again containing large and small bowel loops as previously. There is no evidence of bowel obstruction. <Electronically signed by Rohan Argueta > 06/26/20 [id number]
== END ==
LOC: M RAD 10:50
PROVIDERS: ATTEND Surgery
DX: K80.20 Calculus of gallbladder without cholecystitis without obstruction (principal); K43.9 Ventral hernia without obstruction or gangrene; K86.89 Other specified diseases of pancreas; N85.8 Other specified noninflammatory disorders of uterus

== ENCOUNTER → 2020-07-17 | Outpatient (REF) | payer MEDICARE, MEDICAID ==
[2020-07-17 21:06] LABS: RSV AMPLIFICATION NEGATIVE (NEGATIVE)
== END ==
PROVIDERS: ATTEND Internal Medicine
DX: Z11.52 Encounter for screening for COVID-19 (principal)

== ENCOUNTER → 2020-07-22 | Outpatient (REF) | payer MEDICARE, MEDICAID | PROVIDERS: ATTEND Family Medicine | DX: E03.9 Hypothyroidism, unspecified (principal) ==

== ENCOUNTER → 2020-09-21 | Outpatient (REF) | payer MEDICARE, MEDICAID ==
[2020-09-21 10:45] LABS: HEMATOCRIT 28.5 % (36.0-47.0); HEMOGLOBIN 8.8 g/dl (12.0-15.5); MEAN CORPUSCULAR HEMOGLOBIN 29.1 pg (27.0-33.0); MEAN CORPUSCULAR HGB CONC 30.9 g/dl (32.0-36.5); MEAN CORPUSCULAR VOLUME 94.4 fl (80.0-96.0); PLATELET COUNT, AUTOMATED 226 10^3/uL (150-450); RED BLOOD COUNT 3.02 10^6/uL (4.00-5.40); WHITE BLOOD COUNT 6.8 10^3/uL (4.0-10.0)
[2020-09-21 11:12] LABS: BLOOD UREA NITROGEN 22 MG/DL (7-18); CALCIUM LEVEL 8.9 MG/DL (8.8-10.2); CARBON DIOXIDE LEVEL 27 MEQ/L (21-32); CHLORIDE LEVEL 101 MEQ/L (98-107); GLOMERULAR FILTRATION RATE > 60.0 (>45); GLUCOSE, FASTING 194 MG/DL (70-100); POTASSIUM SERUM 3.7 MEQ/L (3.5-5.1); SODIUM LEVEL 138 MEQ/L (136-145)
[2020-09-21 11:57] LABS: HEMOGLOBIN A1c 6.9 %
== END ==
PROVIDERS: ATTEND Internal Medicine
DX: D64.9 Anemia, unspecified (principal); E11.9 Type 2 diabetes mellitus without complications

== ENCOUNTER → 2020-10-14 | Outpatient (REF) | payer MEDICARE, MEDICAID ==
[2020-10-14 15:07] LABS: HEMATOCRIT 30.4 % (36.0-47.0); HEMOGLOBIN 9.4 g/dl (12.0-15.5); MEAN CORPUSCULAR HEMOGLOBIN 29.1 pg (27.0-33.0); MEAN CORPUSCULAR HGB CONC 30.9 g/dl (32.0-36.5); MEAN CORPUSCULAR VOLUME 94.1 fl (80.0-96.0); PLATELET COUNT, AUTOMATED 255 10^3/uL (150-450); RED BLOOD COUNT 3.23 10^6/uL (4.00-5.40); WHITE BLOOD COUNT 6.7 10^3/uL (4.0-10.0)
== END ==
PROVIDERS: ATTEND Nurse Practitioner Adult Health
DX: M79.89 Other specified soft tissue disorders (principal)

== ENCOUNTER → 2020-10-16 | Outpatient (REF) | payer MEDICARE, MEDICAID | PROVIDERS: ATTEND Internal Medicine | DX: M10.9 Gout, unspecified (principal); Z53.8 Procedure and treatment not carried out for other reasons ==

== ENCOUNTER → 2020-10-19 | Outpatient (REF) | payer MEDICARE, MEDICAID ==
[~2020-10-19] MED LIST changes: -KLOR20TA42 PO; +POTA-141 PO
== END ==
PROVIDERS: ATTEND Family Medicine
DX: M10.9 Gout, unspecified (principal); Z79.899 Other long term (current) drug therapy

== ENCOUNTER → 2020-10-23 | Outpatient (REF) | payer MEDICARE, MEDICAID ==
[~2020-10-23] MED LIST changes: +KLOR20TA42 PO; -POTA-141 PO
== END ==
PROVIDERS: ATTEND Internal Medicine
DX: M10.9 Gout, unspecified (principal)

== ENCOUNTER → 2020-10-28 | Outpatient (REF) | payer MEDICARE, MEDICAID ==
[~2020-10-28] MED LIST changes: -KLOR20TA42 PO; +POTA-141 PO
== END ==
PROVIDERS: ATTEND Internal Medicine
DX: M10.9 Gout, unspecified (principal)

== ENCOUNTER → 2020-11-16 | Outpatient (REF) | payer MEDICARE, MEDICAID ==
[~2020-11-16] MED LIST changes: +KLOR20TA42 PO; -POTA-141 PO
== END ==
PROVIDERS: ATTEND Nurse Practitioner Adult Health
DX: M10.9 Gout, unspecified (principal)

== ENCOUNTER → 2020-11-23 | Outpatient (REF) | payer MEDICARE, MEDICAID | PROVIDERS: ATTEND Nurse Practitioner Adult Health | DX: M10.9 Gout, unspecified (principal) ==

== ENCOUNTER → 2020-11-30 | Outpatient (REF) | payer MEDICARE, MEDICAID | PROVIDERS: ATTEND Internal Medicine | DX: M10.9 Gout, unspecified (principal) ==

== ENCOUNTER → 2020-12-16 | Outpatient (REF) | payer MEDICARE, MEDICAID ==
[2020-12-16 12:49] LABS: HEMATOCRIT 25.6 % (36.0-47.0); HEMOGLOBIN 7.7 g/dl (12.0-15.5); MEAN CORPUSCULAR HEMOGLOBIN 28.5 pg (27.0-33.0); MEAN CORPUSCULAR HGB CONC 30.1 g/dl (32.0-36.5); MEAN CORPUSCULAR VOLUME 94.8 fl (80.0-96.0); PLATELET COUNT, AUTOMATED 232 10^3/uL (150-450); WHITE BLOOD COUNT 7.6 10^3/uL (4.0-10.0)
[2020-12-16 13:13] LABS: BLOOD UREA NITROGEN 17 MG/DL (7-18); CALCIUM LEVEL 8.3 MG/DL (8.8-10.2); CARBON DIOXIDE LEVEL 34 MEQ/L (21-32); CHLORIDE LEVEL 100 MEQ/L (98-107); CREATININE FOR GFR 0.89 MG/DL (0.55-1.30); GLOMERULAR FILTRATION RATE > 60.0 (>45); GLUCOSE, FASTING 166 MG/DL (70-100); POTASSIUM SERUM 3.5 MEQ/L (3.5-5.1); SODIUM LEVEL 139 MEQ/L (136-145)
[2020-12-16 14:14] LABS: HEMOGLOBIN A1c 7.4 %
== END ==
PROVIDERS: ATTEND Family Medicine
DX: D64.9 Anemia, unspecified (principal); E11.9 Type 2 diabetes mellitus without complications

== ENCOUNTER → 2020-12-19 | Outpatient (REF) | PROVIDERS: ATTEND Internal Medicine | DX: D64.9 Anemia, unspecified (principal) ==

== ENCOUNTER → 2020-12-23 | Outpatient (REF) | payer MEDICARE, MEDICAID ==
[~2020-12-23] MED LIST changes: -KLOR20TA42 PO; +POTA-141 PO
[2020-12-23 11:44] LABS: HEMATOCRIT 27.6 % (36.0-47.0); HEMOGLOBIN 8.3 g/dl (12.0-15.5); MEAN CORPUSCULAR HEMOGLOBIN 28.5 pg (27.0-33.0); MEAN CORPUSCULAR HGB CONC 30.1 g/dl (32.0-36.5); MEAN CORPUSCULAR VOLUME 94.8 fl (80.0-96.0); PLATELET COUNT, AUTOMATED 261 10^3/uL (150-450); RED BLOOD COUNT 2.91 10^6/uL (4.00-5.40); WHITE BLOOD COUNT 8.1 10^3/uL (4.0-10.0)
== END ==
PROVIDERS: ATTEND Nurse Practitioner Adult Health
DX: D64.9 Anemia, unspecified (principal)

== ENCOUNTER → 2021-01-13 | Outpatient (REF) | payer MEDICARE, MEDICAID ==
[2021-01-13 11:11] LABS: HEMATOCRIT 27.2 % (36.0-47.0); HEMOGLOBIN 8.1 g/dl (12.0-15.5); MEAN CORPUSCULAR HEMOGLOBIN 28.2 pg (27.0-33.0); MEAN CORPUSCULAR HGB CONC 29.8 g/dl (32.0-36.5); MEAN CORPUSCULAR VOLUME 94.8 fl (80.0-96.0); PLATELET COUNT, AUTOMATED 248 10^3/uL (150-450); RED BLOOD COUNT 2.87 10^6/uL (4.00-5.40)
[2021-01-13 14:26] LABS: ALBUMIN 2.8 GM/DL (3.2-5.2); ALT/SGPT 16 U/L (12-78); BILIRUBIN,TOTAL 0.2 MG/DL (0.2-1.0); BLOOD UREA NITROGEN 19 MG/DL (7-18); CALCIUM LEVEL 8.9 MG/DL (8.8-10.2); CARBON DIOXIDE LEVEL 30 MEQ/L (21-32); CHLORIDE LEVEL 99 MEQ/L (98-107); CHOLESTEROL LEVEL 136 MG/DL (<200); CHOLESTEROL RISK RATIO 2.615 (<5); CREATININE FOR GFR 0.88 MG/DL (0.55-1.30); GLOMERULAR FILTRATION RATE > 60.0 (>45); GLUCOSE, FASTING 178 MG/DL (70-100); HDL CHOLESTEROL 52 MG/DL (>40); IRON (FE) 50 UG/DL (50-170); LDL CHOLESTEROL 42 MG/DL (<100); NON-HDL-C 84 MG/DL; POTASSIUM SERUM 3.4 MEQ/L (3.5-5.1); SODIUM LEVEL 138 MEQ/L (136-145); TOTAL PROTEIN 7.1 GM/DL (6.4-8.2); TRIGLYCERIDES LEVEL 208 MG/DL (<150)
[2021-01-13 15:38] LABS: HEMOGLOBIN A1c 6.9 %
== END ==
PROVIDERS: ATTEND Nurse Practitioner Adult Health
DX: E11.9 Type 2 diabetes mellitus without complications (principal); I10 Essential (primary) hypertension; D50.9 Iron deficiency anemia, unspecified

== ENCOUNTER → 2021-02-19 | Outpatient (REF) | payer MEDICARE ==
[2021-02-19 11:31] LABS: BLOOD UREA NITROGEN 20 MG/DL (7-18); CALCIUM LEVEL 8.5 MG/DL (8.8-10.2); CARBON DIOXIDE LEVEL 32 MEQ/L (21-32); CHLORIDE LEVEL 98 MEQ/L (98-107); CREATININE FOR GFR 0.84 MG/DL (0.55-1.30); GLOMERULAR FILTRATION RATE > 60.0 (>45); GLUCOSE, FASTING 147 MG/DL (70-100); POTASSIUM SERUM 3.4 MEQ/L (3.5-5.1); SODIUM LEVEL 139 MEQ/L (136-145)
== END ==
PROVIDERS: ATTEND Internal Medicine
DX: Z01.818 Encounter for other preprocedural examination (principal)

== ENCOUNTER → 2021-02-22 | Outpatient (CLI) | payer MEDICARE ==
[~2021-02-22] MED LIST changes: +GASTROGRAFIN SOLUTION 30ML (Q9963) As Ordered ONE; +ISOVUE-370 76% 100ML VIAL As Ordered ONE
--- NOTE | 2021-02-22 12:02 | REP ---
INDICATION: UMBILICAL HERNIA. COMPARISON: 06/26/2020 a noncontrast enhanced exam TECHNIQUE: Standard helical technique before and after the intravenous administration of 100 cc Isovue 370. FINDINGS: There is no significant change in lung bases. The pre contrast enhanced portion examination again shows cholelithiasis. Abnormal decreased density seen surrounding the gallbladder in the gallbladder fossa. The contrast-enhanced portion examination shows abnormal pericholecystic enhancement extending into the hepatic parenchyma surrounding the gallbladder. There is no evidence of intrahepatic ductal dilatation. There is a simple cyst in the lateral segment of the left lobe of the liver. The spleen, pancreas, adrenal glands, and kidneys are unremarkable. There is no significant change in appearance of the abdominal aorta or para-aortic regions. There is a large and in fact huge ventral hernia through which multiple large and small bowel loops reside. This is unchanged. There is no evidence of intestinal obstruction. There is no free fluid or free air. There is no change in the osseous structures. There is a stable L4 on 5 and L5 on S1 compression deformities with spondylolisthesis. IMPRESSION: 1. There is cholelithiasis and evidence of extensive appearing cholecystitis. Pericholecystic abscess formation cannot be ruled out. 2. Large but stable ventral hernia as described above. 3. Stable appearing chronic osseous changes. 4. Other findings as described above. <Electronically signed by Easton Tipton > 02/22/21 [id number]
== END ==
LOC: M RAD 08:51
PROVIDERS: ATTEND Nurse Practitioner Adult Health
DX: K42.9 Umbilical hernia without obstruction or gangrene (principal); K80.80 Other cholelithiasis without obstruction
CPT/HCPCS: 74178; Q9963; Q9967

== ENCOUNTER → 2021-03-02 | Outpatient (CLI) | payer MEDICARE, MEDICAID ==
[~2021-03-02] MED LIST changes: -GASTROGRAFIN SOLUTION 30ML (Q9963) As Ordered ONE; -ISOVUE-370 76% 100ML VIAL As Ordered ONE
--- NOTE | 2021-03-02 16:06 | REP ---
INDICATION: COUGH COMPARISON: 05/14/2020 TECHNIQUE: Portable AP view of the chest FINDINGS: Examination is limited by poor inspiratory effort, portable technique and underpenetration. Cardiomegaly is again suggested and stable. Pulmonary vascular congestion cannot definitively be excluded. No obvious focal consolidation or effusion. No pneumothorax. IMPRESSION: Significantly limited examination. Cannot exclude mild pulmonary vascular congestion. <Electronically signed by [employer] > 03/02/21 [id number]
== END ==
PROVIDERS: ATTEND Nurse Practitioner Adult Health
DX: I51.7 Cardiomegaly (principal); R05.9 Cough, unspecified

== ENCOUNTER → 2021-03-24 | Outpatient (REF) | payer MEDICARE, MEDICAID ==
[2021-03-24 11:28] LABS: CALCIUM LEVEL 8.5 MG/DL (8.8-10.2); CREATININE FOR GFR 1.02 MG/DL (0.55-1.30); GLOMERULAR FILTRATION RATE 57.2 (>45); MAGNESIUM LEVEL 1.7 MG/DL (1.8-2.4); POTASSIUM SERUM 3.3 MEQ/L (3.5-5.1)
== END ==
PROVIDERS: ATTEND Nurse Practitioner Primary Care
DX: I10 Essential (primary) hypertension (principal)

== ENCOUNTER → 2021-04-21 | Outpatient (REF) | payer MEDICARE, MEDICAID ==
[2021-04-21 10:52] LABS: HEMOGLOBIN 8.7 g/dl (12.0-15.5); MEAN CORPUSCULAR HEMOGLOBIN 29.1 pg (27.0-33.0); PLATELET COUNT, AUTOMATED 228 10^3/uL (150-450); RED BLOOD COUNT 2.99 10^6/uL (4.00-5.40); WHITE BLOOD COUNT 7.5 10^3/uL (4.0-10.0)
[2021-04-21 11:40] LABS: ALT/SGPT 22 U/L (12-78); BILIRUBIN,TOTAL 0.2 MG/DL (0.2-1.0); BLOOD UREA NITROGEN 19 MG/DL (7-18); CALCIUM LEVEL 8.8 MG/DL (8.8-10.2); CARBON DIOXIDE LEVEL 34 MEQ/L (21-32); CHLORIDE LEVEL 97 MEQ/L (98-107); CHOLESTEROL LEVEL 137 MG/DL (<200); CHOLESTEROL RISK RATIO 2.584 (<5); CREATININE FOR GFR 0.93 MG/DL (0.55-1.30); GLOMERULAR FILTRATION RATE > 60.0 (>45); GLUCOSE, FASTING 178 MG/DL (70-100); HDL CHOLESTEROL 53 MG/DL (>40); LDL CHOLESTEROL 50 MG/DL (<100); NON-HDL-C 84 MG/DL; POTASSIUM SERUM 3.4 MEQ/L (3.5-5.1); SODIUM LEVEL 138 MEQ/L (136-145); TOTAL PROTEIN 7.2 GM/DL (6.4-8.2); TRIGLYCERIDES LEVEL 171 MG/DL (<150)
[2021-04-21 17:49] LABS: HEMOGLOBIN A1c 7.7 %
== END ==
PROVIDERS: ATTEND Nurse Practitioner Primary Care
DX: I10 Essential (primary) hypertension (principal); Z79.899 Other long term (current) drug therapy

== ENCOUNTER → 2021-04-28 | Outpatient (REF) | payer MEDICARE, MEDICAID ==
[2021-04-28 18:18] LABS: CALCIUM LEVEL 9.2 MG/DL (8.8-10.2); CREATININE FOR GFR 1.2 MG/DL (0.55-1.30); GLOMERULAR FILTRATION RATE 47.4 (>45); POTASSIUM SERUM 4.5 MEQ/L (3.5-5.1)
== END ==
PROVIDERS: ATTEND Nurse Practitioner Primary Care
DX: E87.6 Hypokalemia (principal)

== ENCOUNTER → 2021-05-12 | Outpatient (REF) | payer MEDICARE, MEDICAID ==
[2021-05-12 13:09] LABS: HEMATOCRIT 28.3 % (36.0-47.0); HEMOGLOBIN 8.5 g/dl (12.0-15.5); MEAN CORPUSCULAR HEMOGLOBIN 28.9 pg (27.0-33.0); MEAN CORPUSCULAR VOLUME 96.3 fl (80.0-96.0); PLATELET COUNT, AUTOMATED 212 10^3/uL (150-450); RED BLOOD COUNT 2.94 10^6/uL (4.00-5.40); WHITE BLOOD COUNT 8.1 10^3/uL (4.0-10.0)
[2021-05-12 14:08] LABS: HEMOGLOBIN A1c 8.5 %
[2021-05-12 14:20] LABS: BILIRUBIN,TOTAL 0.2 MG/DL (0.2-1.0); CALCIUM LEVEL 8.8 MG/DL (8.8-10.2); CHOLESTEROL RISK RATIO 2.812 (<5); CREATININE FOR GFR 1.09 MG/DL (0.55-1.30); POTASSIUM SERUM 4.5 MEQ/L (3.5-5.1); THYROID STIMULATING HORMONE 1.59 uIU/ML (0.358-3.740); TOTAL PROTEIN 6.8 GM/DL (6.4-8.2)
== END ==
PROVIDERS: ATTEND Internal Medicine
DX: E11.9 Type 2 diabetes mellitus without complications (principal); I10 Essential (primary) hypertension; D50.9 Iron deficiency anemia, unspecified

== ENCOUNTER → 2021-06-21 | Outpatient (CLI) | payer MEDICARE, MEDICAID | LOC: M RAD 08:04 | PROVIDERS: ATTEND Nurse Practitioner Primary Care | DX: K81.9 Cholecystitis, unspecified (principal) | CPT/HCPCS: 78226; A9537 ==

== ENCOUNTER → 2021-07-27 | Outpatient (REF) | payer MEDICARE, MEDICAID ==
[2021-07-27 17:39] LABS: BASO % 0.4 % (0.0-1.0); EOS # 0.2 10^3/uL (0.0-0.5); EOS % 2.2 % (0.0-3.0); HEMATOCRIT 26.8 % (36.0-47.0); HEMOGLOBIN 8.2 g/dl (12.0-15.5); LYMPH # 1.5 10^3/uL (1.5-5.0); LYMPH % 20.5 % (24.0-44.0); MEAN CORPUSCULAR HEMOGLOBIN 29.9 pg (27.0-33.0); MEAN CORPUSCULAR HGB CONC 30.6 g/dl (32.0-36.5); MEAN CORPUSCULAR VOLUME 97.8 fl (80.0-96.0); MONO # 0.6 10^3/uL (0.0-0.8); MONO % 8.2 % (2.0-8.0); NEUTROPHILS # 4.9 10^3/uL (1.5-8.5); NEUTROPHILS % 67.6 % (36.0-66.0); PLATELET COUNT, AUTOMATED 190 10^3/uL (150-450); RED BLOOD COUNT 2.74 10^6/uL (4.00-5.40); WHITE BLOOD COUNT 7.3 10^3/uL (4.0-10.0)
[2021-07-27 18:05] LABS: ALBUMIN 2.9 GM/DL (3.2-5.2); ALT/SGPT 24 U/L (12-78); BILIRUBIN,TOTAL 0.2 MG/DL (0.2-1.0); BLOOD UREA NITROGEN 22 MG/DL (7-18); CALCIUM LEVEL 8.8 MG/DL (8.8-10.2); CARBON DIOXIDE LEVEL 35 MEQ/L (21-32); CHLORIDE LEVEL 101 MEQ/L (98-107); CREATININE FOR GFR 0.77 MG/DL (0.55-1.30); GLOMERULAR FILTRATION RATE > 60.0 (>45); GLUCOSE, FASTING 149 MG/DL (70-100); NT-PRO BNP 648 PG/ML (<125); POTASSIUM SERUM 3.9 MEQ/L (3.5-5.1); SODIUM LEVEL 142 MEQ/L (136-145); TOTAL PROTEIN 6.9 GM/DL (6.4-8.2)
[2021-07-27 20:29] LABS: MAGNESIUM LEVEL 1.9 MG/DL (1.8-2.4)
== END ==
PROVIDERS: ATTEND Nurse Practitioner Family
DX: R06.02 Shortness of breath (principal); R05.9 Cough, unspecified

== ENCOUNTER → 2021-07-27 | Outpatient (REF) | payer MEDICARE, MEDICAID | PROVIDERS: ATTEND Nurse Practitioner Family | DX: R05.9 Cough, unspecified (principal) ==

== ENCOUNTER → 2021-07-27 | Outpatient (CLI) | payer MEDICARE, MEDICAID | PROVIDERS: ATTEND Internal Medicine | DX: R06.02 Shortness of breath (principal) ==

== ENCOUNTER → 2021-08-04 | Outpatient (REF) | payer MEDICARE, MEDICAID ==
[2021-08-04 11:48] LABS: PERCENT SATURATION 11.9 % (13.2-45.0)
== END ==
PROVIDERS: ATTEND Internal Medicine
DX: E11.40 Type 2 diabetes mellitus with diabetic neuropathy, unspecified (principal)

== ENCOUNTER → 2021-08-04 | Outpatient (REF) | payer MEDICARE, MEDICAID ==
[2021-08-04 11:43] LABS: BLOOD UREA NITROGEN 26 MG/DL (7-18); CALCIUM LEVEL 9.4 MG/DL (8.8-10.2); CARBON DIOXIDE LEVEL 31 MEQ/L (21-32); CHLORIDE LEVEL 100 MEQ/L (98-107); CREATININE FOR GFR 0.93 MG/DL (0.55-1.30); GLOMERULAR FILTRATION RATE > 60.0 (>45); GLUCOSE, FASTING 201 MG/DL (70-100); NT-PRO BNP 169 PG/ML (<125); POTASSIUM SERUM 4.4 MEQ/L (3.5-5.1); SODIUM LEVEL 139 MEQ/L (136-145)
== END ==
PROVIDERS: ATTEND Nurse Practitioner Family
DX: I50.9 Heart failure, unspecified (principal)

== ENCOUNTER → 2021-08-23 | Outpatient (REF) | payer MEDICARE, MEDICAID ==
[2021-08-23 10:44] LABS: CALCIUM LEVEL 9.2 MG/DL (8.8-10.2); CREATININE FOR GFR 1.08 MG/DL (0.55-1.30); GLOMERULAR FILTRATION RATE 53.5 (>45); POTASSIUM SERUM 4.3 MEQ/L (3.5-5.1)
== END ==
PROVIDERS: ATTEND Internal Medicine
DX: I50.9 Heart failure, unspecified (principal)

== ENCOUNTER → 2021-10-25 | Outpatient (REF) | payer MEDICARE, MEDICAID ==
[2021-10-25 11:16] LABS: BASO % 0.3 % (0.0-1.0); EOS # 0.2 10^3/uL (0.0-0.5); EOS % 2.2 % (0.0-3.0); HEMATOCRIT 29.7 % (36.0-47.0); LYMPH # 1.6 10^3/uL (1.5-5.0); LYMPH % 21.6 % (24.0-44.0); MEAN CORPUSCULAR HEMOGLOBIN 27.7 pg (27.0-33.0); MEAN CORPUSCULAR HGB CONC 30.3 g/dl (32.0-36.5); MEAN CORPUSCULAR VOLUME 91.4 fl (80.0-96.0); MONO # 0.4 10^3/uL (0.0-0.8); MONO % 5.5 % (2.0-8.0); NEUTROPHILS # 5.3 10^3/uL (1.5-8.5); NEUTROPHILS % 70.1 % (36.0-66.0); PLATELET COUNT, AUTOMATED 236 10^3/uL (150-450); RED BLOOD COUNT 3.25 10^6/uL (4.00-5.40); WHITE BLOOD COUNT 7.6 10^3/uL (4.0-10.0)
[2021-10-25 12:10] LABS: CALCIUM LEVEL 8.7 MG/DL (8.8-10.2); GLOMERULAR FILTRATION RATE 58.5 (>45); POTASSIUM SERUM 4.1 MEQ/L (3.5-5.1)
== END ==
PROVIDERS: ATTEND Nurse Practitioner Family
DX: I50.9 Heart failure, unspecified (principal)

== ENCOUNTER → 2021-11-26 | Outpatient (CLI) | payer MEDICARE, MEDICAID | PROVIDERS: ATTEND Internal Medicine | DX: R10.9 Unspecified abdominal pain (principal) ==

== ENCOUNTER → 2021-12-15 | Outpatient (REF) | payer MEDICARE, MEDICAID ==
[2021-12-15 14:37] LABS: HEMOGLOBIN A1c 7.9 %
== END ==
PROVIDERS: ATTEND Internal Medicine
DX: E11.9 Type 2 diabetes mellitus without complications (principal)

== ENCOUNTER → 2022-01-12 | Outpatient (REF) | payer MEDICARE, MEDICAID ==
[2022-01-12 12:06] LABS: HEMATOCRIT 31.3 % (36.0-47.0); HEMOGLOBIN 9.1 g/dl (12.0-15.5); MEAN CORPUSCULAR HEMOGLOBIN 28.3 pg (27.0-33.0); MEAN CORPUSCULAR HGB CONC 29.1 g/dl (32.0-36.5); MEAN CORPUSCULAR VOLUME 97.5 fl (80.0-96.0); PLATELET COUNT, AUTOMATED 208 10^3/uL (150-450); RED BLOOD COUNT 3.21 10^6/uL (4.00-5.40); WHITE BLOOD COUNT 7.2 10^3/uL (4.0-10.0)
[2022-01-12 12:49] LABS: CALCIUM LEVEL 9.7 MG/DL (8.8-10.2); GLOMERULAR FILTRATION RATE 58.4 (>39); POTASSIUM SERUM 3.6 MEQ/L (3.5-5.1)
== END ==
PROVIDERS: ATTEND Internal Medicine
DX: R09.02 Hypoxemia (principal)

== ENCOUNTER → 2022-01-12 | Outpatient (CLI) | payer MEDICARE, MEDICAID | PROVIDERS: ATTEND Internal Medicine | DX: R09.02 Hypoxemia (principal) ==

== ENCOUNTER → 2022-01-19 | Outpatient (REF) | payer MEDICARE, MEDICAID ==
[2022-01-19 12:07] LABS: HEMATOCRIT 28.7 % (36.0-47.0); HEMOGLOBIN 8.6 g/dl (12.0-15.5); MEAN CORPUSCULAR HEMOGLOBIN 29.1 pg (27.0-33.0); PLATELET COUNT, AUTOMATED 179 10^3/uL (150-450); RED BLOOD COUNT 2.96 10^6/uL (4.00-5.40); WHITE BLOOD COUNT 7.3 10^3/uL (4.0-10.0)
[2022-01-19 12:17] LABS: HEMOGLOBIN A1c 7.9 %
[2022-01-19 12:45] LABS: ALT/SGPT 18 U/L (12-78); BILIRUBIN,TOTAL 0.3 MG/DL (0.2-1.0); BLOOD UREA NITROGEN 29 MG/DL (7-18); CALCIUM LEVEL 8.6 MG/DL (8.8-10.2); CARBON DIOXIDE LEVEL 34 MEQ/L (21-32); CHLORIDE LEVEL 97 MEQ/L (98-107); CHOLESTEROL LEVEL 123 MG/DL (<200); CHOLESTEROL RISK RATIO 2.236 (<5); CREATININE FOR GFR 0.94 MG/DL (0.55-1.30); GLOMERULAR FILTRATION RATE > 60.0 (>39); GLUCOSE, FASTING 185 MG/DL (70-100); HDL CHOLESTEROL 55 MG/DL (>40); IRON (FE) 51 UG/DL (50-170); LDL CHOLESTEROL 34 MG/DL (<100); NON-HDL-C 68 MG/DL; POTASSIUM SERUM 3.9 MEQ/L (3.5-5.1); SODIUM LEVEL 138 MEQ/L (136-145); TOTAL PROTEIN 7.1 GM/DL (6.4-8.2); TRIGLYCERIDES LEVEL 168 MG/DL (<150)
== END ==
PROVIDERS: ATTEND Internal Medicine
DX: E11.9 Type 2 diabetes mellitus without complications (principal); I10 Essential (primary) hypertension; D50.9 Iron deficiency anemia, unspecified

== ENCOUNTER → 2022-01-21 | Outpatient (REF) | payer MEDICARE, MEDICAID ==
[2022-01-21 15:52] LABS: HEMATOCRIT 33.1 % (36.0-47.0); HEMOGLOBIN 10.1 g/dl (12.0-15.5); MEAN CORPUSCULAR HEMOGLOBIN 29.4 pg (27.0-33.0); MEAN CORPUSCULAR HGB CONC 30.5 g/dl (32.0-36.5); MEAN CORPUSCULAR VOLUME 96.5 fl (80.0-96.0); PLATELET COUNT, AUTOMATED 191 10^3/uL (150-450); RED BLOOD COUNT 3.43 10^6/uL (4.00-5.40)
== END ==
PROVIDERS: ATTEND Nurse Practitioner Family
DX: K92.1 Melena (principal)

== ENCOUNTER → 2022-01-24 | Outpatient (REF) | payer MEDICARE, MEDICAID ==
[2022-01-24 11:11] LABS: CALCIUM LEVEL 8.8 MG/DL (8.8-10.2); CREATININE FOR GFR 1.04 MG/DL (0.55-1.30); GLOMERULAR FILTRATION RATE 55.8 (>39); POTASSIUM SERUM 3.9 MEQ/L (3.5-5.1)
== END ==
PROVIDERS: ATTEND Nurse Practitioner Family
DX: I50.9 Heart failure, unspecified (principal)

== ENCOUNTER → 2022-01-31 | Outpatient (REF) | payer MEDICARE, MEDICAID ==
[2022-01-31 10:21] LABS: CALCIUM LEVEL 9.2 MG/DL (8.8-10.2); CREATININE FOR GFR 1.03 MG/DL (0.55-1.30); GLOMERULAR FILTRATION RATE 56.4 (>39); POTASSIUM SERUM 3.5 MEQ/L (3.5-5.1)
== END ==
PROVIDERS: ATTEND Nurse Practitioner Family
DX: I50.9 Heart failure, unspecified (principal)

== ENCOUNTER → 2022-02-07 | Outpatient (REF) | payer MEDICARE, MEDICAID ==
[2022-02-07 11:25] LABS: CALCIUM LEVEL 9.2 MG/DL (8.8-10.2); CREATININE FOR GFR 1.06 MG/DL (0.55-1.30); GLOMERULAR FILTRATION RATE 54.6 (>39); POTASSIUM SERUM 4.4 MEQ/L (3.5-5.1)
== END ==
PROVIDERS: ATTEND Internal Medicine
DX: N18.9 Chronic kidney disease, unspecified (principal)

== ENCOUNTER → 2022-03-14 | Outpatient (REF) | payer MEDICARE, MEDICAID ==
[2022-03-14 12:20] LABS: BLOOD UREA NITROGEN 22 MG/DL (9-23); CALCIUM LEVEL 8.9 MG/DL (8.3-10.6); CARBON DIOXIDE LEVEL 30 MMOL/L (20-31); CHLORIDE LEVEL 95 MMOL/L (98-107); CREATININE FOR GFR 0.84 MG/DL (0.55-1.30); GLOMERULAR FILTRATION RATE > 60.0 (>39); GLUCOSE, FASTING 166 MG/DL (74-106); POTASSIUM SERUM 3.8 MMOL/L (3.5-5.1); SODIUM LEVEL 135 MMOL/L (136-145)
== END ==
PROVIDERS: ATTEND Internal Medicine
DX: N18.9 Chronic kidney disease, unspecified (principal)

== ENCOUNTER → 2022-03-17 | Outpatient (REF) | payer MEDICARE, MEDICAID ==
[2022-03-17 18:43] LABS: MAGNESIUM LEVEL 1.8 MG/DL (1.8-2.4)
[2022-03-17 18:44] LABS: ALBUMIN 3.4 G/DL (3.2-5.2); CALCIUM LEVEL 9.3 MG/DL (8.3-10.6); GLOMERULAR FILTRATION RATE 58.4 (>39); PHOSPHORUS LEVEL 5.2 MG/DL (2.4-5.1); POTASSIUM SERUM 3.6 MMOL/L (3.5-5.1)
== END ==
PROVIDERS: ATTEND Nurse Practitioner Family
DX: N18.30 Chronic kidney disease, stage 3 unspecified (principal)

== ENCOUNTER → 2022-03-21 | Outpatient (REF) | payer MEDICARE, MEDICAID ==
[~2022-03-21] MED LIST changes: -PAXI40TA10 PO; +PAXI40TA12 PO
[2022-03-21 11:05] LABS: PHOSPHORUS LEVEL 3.6 MG/DL (2.4-5.1); PTH INTACT 72.8 PG/ML (18.5-88.0)
[2022-03-21 11:07] LABS: TOTAL 25(OH) VITAMIN D 63.3 NG/ML (20.0-100.0)
== END ==
PROVIDERS: ATTEND Nurse Practitioner Family
DX: N25.81 Secondary hyperparathyroidism of renal origin (principal)

== ENCOUNTER → 2022-05-04 | Outpatient (REF) | payer MEDICARE, MEDICAID ==
[2022-05-04 10:22] LABS: CALCIUM LEVEL 8.6 MG/DL (8.3-10.6); CREATININE FOR GFR 1.72 MG/DL (0.55-1.30); GLOMERULAR FILTRATION RATE 31.2 (>39); POTASSIUM SERUM 4.4 MMOL/L (3.5-5.1)
== END ==
PROVIDERS: ATTEND Internal Medicine
DX: L03.90 Cellulitis, unspecified (principal)

== ENCOUNTER → 2022-05-05 | Outpatient (REF) | payer MEDICARE, MEDICAID | PROVIDERS: ATTEND Nurse Practitioner Family | DX: R05.9 Cough, unspecified (principal); Z20.822 Contact with and (suspected) exposure to COVID-19 ==

== ENCOUNTER → 2022-05-11 | Outpatient (REF) | payer MEDICARE, MEDICAID ==
[2022-05-11 12:06] LABS: CALCIUM LEVEL 8.3 MG/DL (8.3-10.6); GLOMERULAR FILTRATION RATE 58.4 (>39); POTASSIUM SERUM 3.7 MMOL/L (3.5-5.1)
== END ==
PROVIDERS: ATTEND Nurse Practitioner Family
DX: N17.9 Acute kidney failure, unspecified (principal); N18.9 Chronic kidney disease, unspecified

== ENCOUNTER → 2022-05-18 | Outpatient (REF) | payer MEDICARE, MEDICAID ==
[2022-05-18 11:23] LABS: HEMATOCRIT 29.7 % (36.0-47.0); HEMOGLOBIN 9.3 g/dl (12.0-15.5); MEAN CORPUSCULAR HEMOGLOBIN 31.4 pg (27.0-33.0); MEAN CORPUSCULAR HGB CONC 31.3 g/dl (32.0-36.5); MEAN CORPUSCULAR VOLUME 100.3 fl (80.0-96.0); PLATELET COUNT, AUTOMATED 211 10^3/uL (150-450); RED BLOOD COUNT 2.96 10^6/uL (4.00-5.40)
[2022-05-18 11:50] LABS: IRON (FE) 41 UG/DL (50-170)
[2022-05-18 12:10] LABS: HEMOGLOBIN A1c 7.5 % (4.0-6.0)
[2022-05-18 12:12] LABS: ALKALINE PHOSPHATASE 67 U/L (46-116); ALT/SGPT 15 U/L (7.0-40); AST/SGOT 17 U/L (<34); BILIRUBIN,TOTAL 0.4 MG/DL (0.3-1.2); BLOOD UREA NITROGEN 33 MG/DL (9-23); CARBON DIOXIDE LEVEL 29 MMOL/L (20-31); CHLORIDE LEVEL 97 MMOL/L (98-107); CHOLESTEROL LEVEL 136 MG/DL (<200); CHOLESTEROL RISK RATIO 3.52 (<5); CREATININE FOR GFR 0.95 MG/DL (0.55-1.30); GLOMERULAR FILTRATION RATE > 60.0 (>39); GLUCOSE, FASTING 138 MG/DL (74-106); HDL CHOLESTEROL 38.6 MG/DL (>40); LDL CHOLESTEROL 32.4 MG/DL (<100); NON-HDL-C 97 MG/DL; POTASSIUM SERUM 3.8 MMOL/L (3.5-5.1); SODIUM LEVEL 135 MMOL/L (136-145); THYROID STIMULATING HORMONE 2.102 uIU/ML (0.55-4.78); TOTAL PROTEIN 6.8 G/DL (5.7-8.2); TRIGLYCERIDES LEVEL 325 MG/DL (<150)
== END ==
PROVIDERS: ATTEND Nurse Practitioner Family
DX: E11.9 Type 2 diabetes mellitus without complications (principal); I10 Essential (primary) hypertension

== ENCOUNTER → 2022-05-25 | Outpatient (REF) | payer MEDICARE, MEDICAID ==
[2022-05-25 11:22] LABS: HEMATOCRIT 29.2 % (36.0-47.0); HEMOGLOBIN 9.2 g/dl (12.0-15.5); MEAN CORPUSCULAR HEMOGLOBIN 31.6 pg (27.0-33.0); MEAN CORPUSCULAR HGB CONC 31.5 g/dl (32.0-36.5); MEAN CORPUSCULAR VOLUME 100.3 fl (80.0-96.0); PLATELET COUNT, AUTOMATED 208 10^3/uL (150-450); RED BLOOD COUNT 2.91 10^6/uL (4.00-5.40); WHITE BLOOD COUNT 6.7 10^3/uL (4.0-10.0)
[2022-05-25 11:47] LABS: BLOOD UREA NITROGEN 29 MG/DL (9-23); CARBON DIOXIDE LEVEL 28 MMOL/L (20-31); CHLORIDE LEVEL 96 MMOL/L (98-107); CREATININE FOR GFR 0.97 MG/DL (0.55-1.30); GLOMERULAR FILTRATION RATE > 60.0 (>39); GLUCOSE, FASTING 158 MG/DL (74-106); POTASSIUM SERUM 4.1 MMOL/L (3.5-5.1); SODIUM LEVEL 134 MMOL/L (136-145)
== END ==
PROVIDERS: ATTEND Nurse Practitioner Family
DX: N18.9 Chronic kidney disease, unspecified (principal)

== ENCOUNTER → 2022-06-16 | Outpatient (REF) | payer MEDICARE, MEDICAID | PROVIDERS: ATTEND Nurse Practitioner Family | DX: R09.81 Nasal congestion (principal) ==

== ENCOUNTER → 2022-06-27 | Outpatient (REF) | payer MEDICARE, MEDICAID | PROVIDERS: ATTEND Nurse Practitioner Family | DX: R05.9 Cough, unspecified (principal) ==

== ENCOUNTER → 2022-07-22 | Outpatient (REF) | payer MEDICARE, MEDICAID | PROVIDERS: ATTEND Nurse Practitioner Family | DX: R05.9 Cough, unspecified (principal) ==

== ENCOUNTER → 2022-07-25 | Outpatient (REF) | payer MEDICARE, MEDICAID | PROVIDERS: ATTEND Internal Medicine | DX: R05.9 Cough, unspecified (principal) ==

== ENCOUNTER → 2022-07-29 | Outpatient (REF) | payer MEDICARE, MEDICAID ==
[2022-07-29 08:57] LABS: BASO % 0.3 % (0.0-1.0); HEMATOCRIT 30.9 % (36.0-47.0); HEMOGLOBIN 9.9 g/dl (12.0-15.5); LYMPH # 0.9 10^3/uL (1.5-5.0); LYMPH % 14.1 % (24.0-44.0); MEAN CORPUSCULAR HEMOGLOBIN 31.8 pg (27.0-33.0); MEAN CORPUSCULAR VOLUME 99.4 fl (80.0-96.0); MONO # 0.3 10^3/uL (0.0-0.8); MONO % 3.9 % (2.0-8.0); NEUTROPHILS # 5.1 10^3/uL (1.5-8.5); NEUTROPHILS % 79.4 % (36.0-66.0); PLATELET COUNT, AUTOMATED 229 10^3/uL (150-450); RED BLOOD COUNT 3.11 10^6/uL (4.00-5.40); WHITE BLOOD COUNT 6.5 10^3/uL (4.0-10.0)
[2022-07-29 09:33] LABS: CALCIUM LEVEL 8.4 MG/DL (8.3-10.6); CREATININE FOR GFR 1.18 MG/DL (0.55-1.30); GLOMERULAR FILTRATION RATE 48.2 (>39)
== END ==
PROVIDERS: ATTEND Nurse Practitioner Family
DX: N18.30 Chronic kidney disease, stage 3 unspecified (principal); Z79.899 Other long term (current) drug therapy

== ENCOUNTER → 2022-08-31 | Outpatient (REF) | payer MEDICARE, MEDICAID ==
[2022-08-31 08:42] LABS: BASO % 0.6 % (0.0-1.0); EOS # 0.1 10^3/uL (0.0-0.5); EOS % 1.5 % (0.0-3.0); HEMATOCRIT 29.3 % (36.0-47.0); HEMOGLOBIN 9.3 g/dl (12.0-15.5); LYMPH % 37.4 % (24.0-44.0); MEAN CORPUSCULAR HEMOGLOBIN 31.4 pg (27.0-33.0); MEAN CORPUSCULAR HGB CONC 31.7 g/dl (32.0-36.5); MONO # 0.6 10^3/uL (0.0-0.8); MONO % 11.6 % (2.0-8.0); NEUTROPHILS # 2.6 10^3/uL (1.5-8.5); NEUTROPHILS % 47.8 % (36.0-66.0); PLATELET COUNT, AUTOMATED 224 10^3/uL (150-450); RED BLOOD COUNT 2.96 10^6/uL (4.00-5.40); WHITE BLOOD COUNT 5.5 10^3/uL (4.0-10.0)
[2022-08-31 09:18] LABS: ALBUMIN 2.4 G/DL (3.2-5.2); ALKALINE PHOSPHATASE 74 U/L (46-116); ALT/SGPT 20 U/L (7.0-40); AST/SGOT 20 U/L (<34); BILIRUBIN,TOTAL 0.3 MG/DL (0.3-1.2); BLOOD UREA NITROGEN 24 MG/DL (9-23); CARBON DIOXIDE LEVEL 30 MMOL/L (20-31); CHLORIDE LEVEL 97 MMOL/L (98-107); CREATININE FOR GFR 0.96 MG/DL (0.55-1.30); GLOMERULAR FILTRATION RATE > 60.0 (>39); GLUCOSE, FASTING 85 MG/DL (74-106); SODIUM LEVEL 137 MMOL/L (136-145); TOTAL PROTEIN 5.3 G/DL (5.7-8.2)
== END ==
PROVIDERS: ATTEND Nurse Practitioner Family
DX: D64.9 Anemia, unspecified (principal); I50.9 Heart failure, unspecified

== ENCOUNTER → 2022-09-07 | Outpatient (REF) | payer MEDICARE, MEDICAID ==
[2022-09-07 12:03] LABS: CREATININE FOR GFR 0.99 MG/DL (0.55-1.30); POTASSIUM SERUM 4.5 MMOL/L (3.5-5.1)
== END ==
PROVIDERS: ATTEND Nurse Practitioner Family
DX: E87.6 Hypokalemia (principal); I50.9 Heart failure, unspecified

== ENCOUNTER → 2022-09-12 | Outpatient (REF) | payer MEDICARE, MEDICAID ==
[2022-09-12 11:41] LABS: HEMOGLOBIN 7.8 g/dl (12.0-15.5); MEAN CORPUSCULAR HEMOGLOBIN 31.7 pg (27.0-33.0); MEAN CORPUSCULAR HGB CONC 31.2 g/dl (32.0-36.5); MEAN CORPUSCULAR VOLUME 101.6 fl (80.0-96.0); PLATELET COUNT, AUTOMATED 288 10^3/uL (150-450); RED BLOOD COUNT 2.46 10^6/uL (4.00-5.40); WHITE BLOOD COUNT 6.2 10^3/uL (4.0-10.0)
[2022-09-12 12:02] LABS: HEMOGLOBIN A1c 6.9 % (4.0-6.0)
[2022-09-12 12:04] LABS: IRON (FE) 30 UG/DL (50-170); PERCENT SATURATION 13.3 % (13.2-45.0); TOTAL IRON BINDING CAPACITY 225 UG/DL (250-425)
[2022-09-12 12:05] LABS: BLOOD UREA NITROGEN 22 MG/DL (9-23); CALCIUM LEVEL 7.3 MG/DL (8.3-10.6); CARBON DIOXIDE LEVEL 23 MMOL/L (20-31); CHLORIDE LEVEL 104 MMOL/L (98-107); CHOLESTEROL LEVEL 142 MG/DL (<200); CHOLESTEROL RISK RATIO 3.64 (<5); CREATININE FOR GFR 0.73 MG/DL (0.55-1.30); GLOMERULAR FILTRATION RATE > 60.0 (>39); GLUCOSE, FASTING 149 MG/DL (74-106); LDL CHOLESTEROL 59.6 MG/DL (<100); POTASSIUM SERUM 4.1 MMOL/L (3.5-5.1); SODIUM LEVEL 136 MMOL/L (136-145); TRIGLYCERIDES LEVEL 217 MG/DL (<150)
[2022-09-12 12:06] LABS: THYROID STIMULATING HORMONE 0.302 uIU/ML (0.55-4.78)
== END ==
PROVIDERS: ATTEND Nurse Practitioner Family
DX: E11.9 Type 2 diabetes mellitus without complications (principal); I10 Essential (primary) hypertension; D50.9 Iron deficiency anemia, unspecified

== ENCOUNTER → 2022-09-13 | Outpatient (REF) | payer MEDICARE, MEDICAID | PROVIDERS: ATTEND Nurse Practitioner Family | DX: D64.9 Anemia, unspecified (principal) ==

== ENCOUNTER → 2022-09-19 | Outpatient (REF) | payer MEDICARE, MEDICAID ==
[2022-09-19 11:32] LABS: HEMATOCRIT 25.2 % (36.0-47.0); HEMOGLOBIN 7.9 g/dl (12.0-15.5); MEAN CORPUSCULAR HEMOGLOBIN 32.2 pg (27.0-33.0); MEAN CORPUSCULAR HGB CONC 31.3 g/dl (32.0-36.5); MEAN CORPUSCULAR VOLUME 102.9 fl (80.0-96.0); PLATELET COUNT, AUTOMATED 257 10^3/uL (150-450); RED BLOOD COUNT 2.45 10^6/uL (4.00-5.40); WHITE BLOOD COUNT 8.7 10^3/uL (4.0-10.0)
== END ==
PROVIDERS: ATTEND Nurse Practitioner Family
DX: D64.9 Anemia, unspecified (principal)

== ENCOUNTER → 2022-10-24 | Outpatient (REF) | payer MEDICARE, MEDICAID | PROVIDERS: ATTEND Nurse Practitioner Family | DX: E03.9 Hypothyroidism, unspecified (principal) ==

== ENCOUNTER → 2023-01-18 | Outpatient (REF) | payer MEDICARE, MEDICAID ==
[2023-01-18 11:28] LABS: HEMATOCRIT 29.7 % (36.0-47.0); HEMOGLOBIN 9.4 g/dl (12.0-15.5); MEAN CORPUSCULAR HEMOGLOBIN 28.9 pg (27.0-33.0); MEAN CORPUSCULAR HGB CONC 31.6 g/dl (32.0-36.5); MEAN CORPUSCULAR VOLUME 91.4 fl (80.0-96.0); PLATELET COUNT, AUTOMATED 260 10^3/uL (150-450); RED BLOOD COUNT 3.25 10^6/uL (4.00-5.40); WHITE BLOOD COUNT 8.4 10^3/uL (4.0-10.0)
[2023-01-18 12:01] LABS: TOTAL IRON BINDING CAPACITY 276 UG/DL (250-425)
[2023-01-18 12:03] LABS: ALKALINE PHOSPHATASE 77 U/L (46-116); ALT/SGPT 16 U/L (7.0-40); AST/SGOT 21 U/L (<34); BILIRUBIN,TOTAL 0.3 MG/DL (0.3-1.2); BLOOD UREA NITROGEN 23 MG/DL (9-23); CALCIUM LEVEL 9.9 MG/DL (8.3-10.6); CARBON DIOXIDE LEVEL 32 MMOL/L (20-31); CHLORIDE LEVEL 98 MMOL/L (98-107); CHOLESTEROL LEVEL 185 MG/DL (<200); CHOLESTEROL RISK RATIO 4.33 (<5); CREATININE FOR GFR 0.91 MG/DL (0.55-1.30); GLOMERULAR FILTRATION RATE > 60.0 (>39); GLUCOSE, FASTING 123 MG/DL (74-106); HDL CHOLESTEROL 42.7 MG/DL (>40); IRON (FE) 41 UG/DL (50-170); LDL CHOLESTEROL 95.9 MG/DL (<100); NON-HDL-C 142.3 MG/DL; PERCENT SATURATION 14.9 % (13.2-45.0); POTASSIUM SERUM 3.2 MMOL/L (3.5-5.1); SODIUM LEVEL 139 MMOL/L (136-145); TOTAL PROTEIN 6.5 G/DL (5.7-8.2); TRIGLYCERIDES LEVEL 232 MG/DL (<150)
[2023-01-18 12:04] LABS: THYROID STIMULATING HORMONE 1.173 uIU/ML (0.55-4.78)
== END ==
PROVIDERS: ATTEND Nurse Practitioner Family
DX: E11.9 Type 2 diabetes mellitus without complications (principal); I10 Essential (primary) hypertension; D50.9 Iron deficiency anemia, unspecified

== ENCOUNTER → 2023-02-18 | Outpatient (REF) | payer MEDICARE, MEDICAID ==
[2023-02-18 17:16] LABS: HEMATOCRIT 31.7 % (36.0-47.0); HEMOGLOBIN 9.7 g/dl (12.0-15.5); MEAN CORPUSCULAR HGB CONC 30.6 g/dl (32.0-36.5); MEAN CORPUSCULAR VOLUME 94.9 fl (80.0-96.0); PLATELET COUNT, AUTOMATED 246 10^3/uL (150-450); RED BLOOD COUNT 3.34 10^6/uL (4.00-5.40); WHITE BLOOD COUNT 8.1 10^3/uL (4.0-10.0)
[2023-02-18 17:30] LABS: CALCIUM LEVEL 9.5 MG/DL (8.3-10.6); CREATININE FOR GFR 1.01 MG/DL (0.55-1.30); GLOMERULAR FILTRATION RATE 57.5 (>39); POTASSIUM SERUM 3.4 MMOL/L (3.5-5.1)
== END ==
PROVIDERS: ATTEND Internal Medicine
DX: R53.83 Other fatigue (principal)

== ENCOUNTER → 2023-03-13 | Outpatient (REF) | payer MEDICARE, MEDICAID ==
[2023-03-13 17:59] LABS: BASO % 0.1 % (0.0-1.0); EOS # 0.1 10^3/uL (0.0-0.5); EOS % 1.1 % (0.0-3.0); HEMATOCRIT 34.5 % (36.0-47.0); LYMPH # 0.3 10^3/uL (1.5-5.0); LYMPH % 4.1 % (24.0-44.0); MEAN CORPUSCULAR HEMOGLOBIN 29.1 pg (27.0-33.0); MEAN CORPUSCULAR HGB CONC 31.9 g/dl (32.0-36.5); MEAN CORPUSCULAR VOLUME 91.3 fl (80.0-96.0); MONO # 0.3 10^3/uL (0.0-0.8); NEUTROPHILS % 89.8 % (36.0-66.0); PLATELET COUNT, AUTOMATED 311 10^3/uL (150-450); RED BLOOD COUNT 3.78 10^6/uL (4.00-5.40); WHITE BLOOD COUNT 7.8 10^3/uL (4.0-10.0)
[2023-03-13 18:33] LABS: THYROID STIMULATING HORMONE 1.761 uIU/ML (0.55-4.78)
[2023-03-13 18:36] LABS: FOLATE > 24.00 NG/ML (>5.4)
[2023-03-13 18:37] LABS: VITAMIN B12 LEVEL 716 PG/ML (211-911)
[2023-03-13 18:38] LABS: ALBUMIN 3.2 G/DL (3.2-5.2); ALKALINE PHOSPHATASE 78 U/L (46-116); ALT/SGPT 13 U/L (7.0-40); AST/SGOT 18 U/L (<34); BILIRUBIN,TOTAL 0.2 MG/DL (0.3-1.2); BLOOD UREA NITROGEN 26 MG/DL (9-23); CALCIUM LEVEL 9.5 MG/DL (8.3-10.6); CARBON DIOXIDE LEVEL 27 MMOL/L (20-31); CHLORIDE LEVEL 96 MMOL/L (98-107); CREATININE FOR GFR 0.93 MG/DL (0.55-1.30); GLOMERULAR FILTRATION RATE > 60.0 (>39); GLUCOSE, FASTING 153 MG/DL (74-106); POTASSIUM SERUM 3.5 MMOL/L (3.5-5.1); SODIUM LEVEL 137 MMOL/L (136-145); TOTAL PROTEIN 7.5 G/DL (5.7-8.2)
== END ==
PROVIDERS: ATTEND Nurse Practitioner Family
DX: R53.83 Other fatigue (principal)

== ENCOUNTER 2023-04-09 14:24 | Inpatient (IN) | payer MEDICARE, MEDICAID ==
[~2023-04-09] VITALS: Ht 142.2 cm; Wt 86.9 kg
[2023-04-09 16:22] LABS: BASO % 0.2 % (0.0-1.0); EOS # 0.1 10^3/uL (0.0-0.5); EOS % 1.4 % (0.0-3.0); HEMATOCRIT 34.4 % (36.0-47.0); HEMOGLOBIN 11.2 g/dl (12.0-15.5); LYMPH # 1.5 10^3/uL (1.5-5.0); LYMPH % 14.4 % (24.0-44.0); MEAN CORPUSCULAR HEMOGLOBIN 29.2 pg (27.0-33.0); MEAN CORPUSCULAR HGB CONC 32.6 g/dl (32.0-36.5); MEAN CORPUSCULAR VOLUME 89.8 fl (80.0-96.0); MONO % 9.6 % (2.0-8.0); NEUTROPHILS # 7.6 10^3/uL (1.5-8.5); NEUTROPHILS % 73.6 % (36.0-66.0); PLATELET COUNT, AUTOMATED 303 10^3/uL (150-450); RED BLOOD COUNT 3.83 10^6/uL (4.00-5.40); WHITE BLOOD COUNT 10.4 10^3/uL (4.0-10.0)
[2023-04-09 16:42] LABS: ALBUMIN 2.8 G/DL (3.2-5.2); BILIRUBIN,DIRECT 0.2 MG/DL (<0.4); BILIRUBIN,TOTAL 0.4 MG/DL (0.3-1.2)
[2023-04-09 16:53] LABS: RSV AMPLIFICATION NEGATIVE (NEGATIVE)
[2023-04-09] MEDS ORDERED: ISOVUE-370 76% 100ML VIAL As Ordered ONE (16:55)
[2023-04-09] MEDS ORDERED: BISACODYL 10MG SUPP PR STA (18:56)
[2023-04-09] MEDS ORDERED: LEVOTAB10 PO (21:39)
[2023-04-09] MEDS ORDERED: GABA-284 PO (21:39)
[2023-04-09] MEDS ORDERED: XALA0.007 OU (21:39)
[2023-04-09] MEDS ORDERED: FOLI1TAB11 PO (21:39)
[2023-04-09] MEDS ORDERED: CLOB0.0548 TOP (21:39)
[2023-04-09] MEDS ORDERED: SEMA2PEN INJ (21:39)
[2023-04-09] MEDS ORDERED: FLON27.5 NARES (21:39)
[2023-04-09] MEDS ORDERED: AMIT50TA PO (21:39)
[2023-04-09] MEDS ORDERED: LEXA1TAB PO (21:39)
[2023-04-09] MEDS ORDERED: SPIR-10 PO (21:39)
[2023-04-09] MEDS ORDERED: EUCECRE12 TOP (21:39)
[2023-04-09] MEDS ORDERED: MONT10TA97 PO (21:39)
[2023-04-09] MEDS ORDERED: BUDE32SU6 (21:39)
[2023-04-09] MEDS ORDERED: LEVO100T5 PO (21:39)
[2023-04-09] MEDS ORDERED: VITA500T41 PO (21:39)
[2023-04-09] MEDS ORDERED: ACET1TAB55 PO (21:58)
[2023-04-09] MEDS ORDERED: TORS20TA2 PO (21:58)
[2023-04-09] MEDS ORDERED: [UNRECOGNIZED DRUG - OTHER] TOP (21:58)
[2023-04-09] MEDS ORDERED: BISA10SU4 PR (21:58)
[2023-04-09] MEDS ORDERED: FLEEENE12 PR (21:58)
[2023-04-09] MEDS ORDERED: CODE30TA PO (21:58)
[2023-04-09] MEDS ORDERED: SYMB16INH INH (21:58)
[2023-04-09] MEDS ORDERED: URSO300C3 PO (21:58)
[2023-04-09] MEDS ORDERED: DICL20GE TP (21:58)
[2023-04-09] MEDS ORDERED: POTA10CA60 PO (21:58)
[2023-04-09] MEDS ORDERED: BRIN8DRO OU (21:58)
[2023-04-09] MEDS ORDERED: CALC600T57 PO (21:58)
[2023-04-09] MEDS ORDERED: FERR1TAB8 PO (21:58)
[2023-04-09] MEDS ORDERED: VITA500045 PO (21:58)
[2023-04-09] MEDS ORDERED: MOM30SS2 PO (22:00)
[2023-04-09] MEDS ORDERED: ONDA-83 PO (22:00)
[2023-04-09] MEDS ORDERED: HOME MED LIST COMPLETE! XX SCH (22:00)
[2023-04-09] MEDS ORDERED: MOM 30ML SUSPENSION UDC PO PRN (22:35)
[2023-04-09] MEDS ORDERED: BISACODYL 10MG SUPP PR PRN (22:35)
[2023-04-09] MEDS ORDERED: FLEET ENEMA PR PRN (22:35)
[2023-04-09] MEDS ORDERED: MAALOX 30 ML SUSP *UDC PO PRN (22:35)
[2023-04-10] MEDS ORDERED: ONDANSETRON 4MG 2ML VIAL IV PRN (00:25)
[2023-04-10] MEDS ORDERED: DEXTROSE 50% 50ML SYRINGE IV PRN (01:20)
[2023-04-10] MEDS ORDERED: GLUCOSE 4GM CHEW TABLET PO PRN (01:20)
[2023-04-10] MEDS ORDERED: GLUCAGON INJ 1MG VIAL SC PRN (01:20)
[2023-04-10 02:42] LABS: CALCIUM LEVEL 7.9 MG/DL (8.3-10.6); CREATININE FOR GFR 1.17 MG/DL (0.55-1.30); GLOMERULAR FILTRATION RATE 48.5 (>39); POTASSIUM SERUM 3.4 MMOL/L (3.5-5.1)
[2023-04-10 03:30] VITALS: BP 112/70; TEMP 96.4; TEMP 96.6; O2SAT 95
[2023-04-10] MEDS: KCL 20MEQ in NS 1000ML 1,000 ML IV SCH ×3 (04:14→22:12)
[2023-04-10 04:47] VITALS: O2SAT 93
[2023-04-10 05:33] VITALS: O2SAT 77
[2023-04-10 05:34] VITALS: O2SAT 95
[2023-04-10] MEDS: INSULIN LISPRO (NovoLOG) PER UNIT SC SCH ×5 (05:50→22:58)
[2023-04-10 06:49] LABS: HEMOGLOBIN 11.2 g/dl (12.0-15.5); MEAN CORPUSCULAR HEMOGLOBIN 29.6 pg (27.0-33.0); MEAN CORPUSCULAR HGB CONC 32.9 g/dl (32.0-36.5); MEAN CORPUSCULAR VOLUME 89.9 fl (80.0-96.0); PLATELET COUNT, AUTOMATED 319 10^3/uL (150-450); RED BLOOD COUNT 3.78 10^6/uL (4.00-5.40); WHITE BLOOD COUNT 10.1 10^3/uL (4.0-10.0)
[2023-04-10 07:23] LABS: ALBUMIN 2.9 G/DL (3.2-5.2); BILIRUBIN,TOTAL 0.3 MG/DL (0.3-1.2); CALCIUM LEVEL 8.1 MG/DL (8.3-10.6); CREATININE FOR GFR 1.13 MG/DL (0.55-1.30); GLOMERULAR FILTRATION RATE 50.5 (>39); POTASSIUM SERUM 3.4 MMOL/L (3.5-5.1); TOTAL PROTEIN 7.1 G/DL (5.7-8.2)
[2023-04-10] MEDS ORDERED: KCL 10MEQ/100ML SWI (KRUN) 10 MEQ in IV 1 EA IV ONE (08:00)
[2023-04-10] MEDS ORDERED: DOCUSATE SODIUM 100MG CAPSULE PO SCH (09:00)
[2023-04-10] MEDS: HEPARIN SOD (PORCINE) 5000UNITS/ML 1ML VIAL/SYRINGE SC SCH ×2 (09:32→20:23)
[2023-04-10] MEDS: SENOKOT S TAB PO SCH ×2 (10:30→20:23)
[2023-04-10] MEDS ORDERED: POTASSIUM CHLORIDE 10MEQ SR TABLET PO ONE (12:00)
[2023-04-10 13:57] LABS: CALCIUM LEVEL 7.5 MG/DL (8.3-10.6); CREATININE FOR GFR 1.1 MG/DL (0.55-1.30); GLOMERULAR FILTRATION RATE 52.1 (>39); POTASSIUM SERUM 3.1 MMOL/L (3.5-5.1)
[2023-04-10 14:00] VITALS: BP 118/57; TEMP 98.2; O2SAT 95
[2023-04-10] MEDS: KCL 10MEQ/100ML SWI (KRUN) 10 MEQ in IV 1 EA IV SCH ×3 (14:32→19:30)
[2023-04-10] MEDS: ACETAMINOPHEN TAB 650MG DOSE (2X325MG) PO PRN (14:37)
[2023-04-10 20:21] VITALS: BP 124/62; TEMP 97.2; O2SAT 98
[2023-04-11 03:09] VITALS: O2SAT 98
[2023-04-11 05:27] VITALS: BP 170/75; TEMP 98.8; O2SAT 98
[2023-04-11] MEDS: INSULIN LISPRO (NovoLOG) PER UNIT SC SCH ×4 (07:08→23:57)
[2023-04-11 07:15] LABS: BASO % 0.2 % (0.0-1.0); EOS # 0.3 10^3/uL (0.0-0.5); EOS % 3.1 % (0.0-3.0); HEMATOCRIT 31.6 % (36.0-47.0); HEMOGLOBIN 9.8 g/dl (12.0-15.5); LYMPH # 1.1 10^3/uL (1.5-5.0); LYMPH % 13.3 % (24.0-44.0); MEAN CORPUSCULAR HEMOGLOBIN 29.1 pg (27.0-33.0); MEAN CORPUSCULAR VOLUME 93.8 fl (80.0-96.0); MONO # 0.9 10^3/uL (0.0-0.8); NEUTROPHILS # 6.1 10^3/uL (1.5-8.5); NEUTROPHILS % 72.5 % (36.0-66.0); PLATELET COUNT, AUTOMATED 254 10^3/uL (150-450); RED BLOOD COUNT 3.37 10^6/uL (4.00-5.40); WHITE BLOOD COUNT 8.5 10^3/uL (4.0-10.0)
[2023-04-11 07:21] LABS: BLOOD UREA NITROGEN 14 MG/DL (9-23); CALCIUM LEVEL 6.6 MG/DL (8.3-10.6); CARBON DIOXIDE LEVEL 23 MMOL/L (20-31); CHLORIDE LEVEL 108 MMOL/L (98-107); CREATININE FOR GFR 0.94 MG/DL (0.55-1.30); GLOMERULAR FILTRATION RATE > 60.0 (>39); GLUCOSE, FASTING 97 MG/DL (74-106); MAGNESIUM LEVEL 1.8 MG/DL (1.8-2.4); POTASSIUM SERUM 3.2 MMOL/L (3.5-5.1); SODIUM LEVEL 140 MMOL/L (136-145)
[2023-04-11 07:45] VITALS: BP 124/68
[2023-04-11 08:00] VITALS: O2SAT 98
[2023-04-11] MEDS: KCL 20MEQ in NS 1000ML 1,000 ML IV SCH ×2 (08:15→17:13)
[2023-04-11] MEDS: KCL 10MEQ/100ML SWI (KRUN) 10 MEQ in IV 1 EA IV SCH ×2 (08:17→10:29)
[2023-04-11] MEDS: HEPARIN SOD (PORCINE) 5000UNITS/ML 1ML VIAL/SYRINGE SC SCH ×2 (08:18→20:25)
[2023-04-11] MEDS: SENOKOT S TAB PO SCH ×2 (08:19→20:25)
[2023-04-11] MEDS ORDERED: POTASSIUM CHLORIDE 10% LIQ 20MEQ/15ML UDC PO ONE (08:45)
[2023-04-11] MEDS: ACETAMINOPHEN TAB 650MG DOSE (2X325MG) PO PRN (12:15)
[2023-04-11 14:00] VITALS: BP 133/66; TEMP 97.3; O2SAT 98
[2023-04-11 20:10] VITALS: BP 136/67; TEMP 99.5; O2SAT 99
[2023-04-12] MEDS: KCL 20MEQ in NS 1000ML 1,000 ML IV SCH (03:15)
[2023-04-12 05:30] VITALS: BP 136/67; TEMP 97.7; O2SAT 100
[2023-04-12] MEDS: INSULIN LISPRO (NovoLOG) PER UNIT SC SCH (05:30)
[2023-04-12] MEDS ORDERED: POTA-298 PO (07:18)
[2023-04-12] MEDS: SENOKOT S TAB PO SCH ×2 (07:25→07:29)
[2023-04-12] MEDS: HEPARIN SOD (PORCINE) 5000UNITS/ML 1ML VIAL/SYRINGE SC SCH (07:25)
== END 2023-04-12 08:13 | DRG 394 ==
LOC: M ED 14:24 → M ED INP 22:31 → M MSPAV 04-10 03:32
PROVIDERS: ADMIT Internal Medicine; ATTEND Internal Medicine
DX: K43.6 Other and unspecified ventral hernia with obstruction, without gangrene (principal); K56.600 Partial intestinal obstruction, unspecified as to cause; I10 Essential (primary) hypertension; E11.9 Type 2 diabetes mellitus without complications; I49.1 Atrial premature depolarization; K52.89 Other specified noninfective gastroenteritis and colitis; K59.00 Constipation, unspecified; M48.02 Spinal stenosis, cervical region; R26.9 Unspecified abnormalities of gait and mobility; D50.9 Iron deficiency anemia, unspecified; G47.33 Obstructive sleep apnea (adult) (pediatric); Z66 Do not resuscitate; Z79.890 Hormone replacement therapy; Z79.899 Other long term (current) drug therapy; Z20.822 Contact with and (suspected) exposure to COVID-19; Z98.49 Cataract extraction status, unspecified eye; E87.6 Hypokalemia

== ENCOUNTER → 2023-04-13 | Outpatient (REF) | payer MEDICARE, MEDICAID ==
[~2023-04-13] MED LIST changes: +ACET1TAB55 PO; +AMIT50TA PO; +BISA10SU4 PR; +BRIN8DRO OU; +BUDE32SU6; +CALC600T57 PO; +CLOB0.0548 TOP; +CODE30TA PO; +DICL20GE TP; +EUCECRE12 TOP; +FERR1TAB8 PO; +FLEEENE12 PR; +FLON27.5 NARES; +FOLI1TAB11 PO; +GABA-284 PO; +LEVO100T5 PO; +LEVOTAB10 PO; +LEXA1TAB PO; +MOM30SS2 PO; +MONT10TA97 PO; +ONDA-83 PO; +POTA-298 PO; +POTA10CA60 PO; +SEMA2PEN INJ; +SPIR-10 PO; +SYMB16INH INH; +TORS20TA2 PO; +URSO300C3 PO; +VITA500045 PO; +VITA500T41 PO; +XALA0.007 OU; +[UNRECOGNIZED DRUG - OTHER] TOP; +[UNRECOGNIZED DRUG - OTHER] TOP
[2023-04-13 16:14] LABS: HEMATOCRIT 34.5 % (36.0-47.0); HEMOGLOBIN 10.7 g/dl (12.0-15.5); MEAN CORPUSCULAR HEMOGLOBIN 29.1 pg (27.0-33.0); MEAN CORPUSCULAR VOLUME 93.8 fl (80.0-96.0); PLATELET COUNT, AUTOMATED 289 10^3/uL (150-450); RED BLOOD COUNT 3.68 10^6/uL (4.00-5.40); WHITE BLOOD COUNT 7.2 10^3/uL (4.0-10.0)
[2023-04-13 16:49] LABS: BLOOD UREA NITROGEN 6 MG/DL (9-23); CALCIUM LEVEL 7.1 MG/DL (8.3-10.6); CARBON DIOXIDE LEVEL 21 MMOL/L (20-31); CHLORIDE LEVEL 109 MMOL/L (98-107); CREATININE FOR GFR 0.74 MG/DL (0.55-1.30); GLOMERULAR FILTRATION RATE > 60.0 (>39); GLUCOSE, FASTING 94 MG/DL (74-106); POTASSIUM SERUM 3.3 MMOL/L (3.5-5.1); SODIUM LEVEL 140 MMOL/L (136-145)
[2023-04-13 17:44] LABS: HEMOGLOBIN A1c 6.2 % (4.0-6.0)
== END ==
PROVIDERS: ATTEND Internal Medicine
DX: E11.9 Type 2 diabetes mellitus without complications (principal)

== ENCOUNTER 2023-04-14 08:21 | Inpatient (IN) | payer MEDICARE, MEDICAID ==
[~2023-04-14] VITALS: Ht 142.2 cm; Wt 94.8 kg
[~2023-04-14 08:21] MED LIST changes: -BUDE32SU6; +BUDE32SU6 NARES; +DICL20GE TOP; -DICL20GE TP; -[UNRECOGNIZED DRUG - OTHER] TOP
[2023-04-14] MEDS: ONDANSETRON 4MG 2ML VIAL IV ONE (09:59)
[2023-04-14] MEDS: NS 1,000 ML IV SCH ×2 (10:02→14:57)
[2023-04-14 10:22] LABS: INR 1.06; PROTHROMBIN TIME 13.5 SECONDS (12.5-14.5)
[2023-04-14 10:33] LABS: LIPASE 20 U/L (12-53)
[2023-04-14 10:35] LABS: ALBUMIN 3.2 G/DL (3.2-5.2); ALKALINE PHOSPHATASE 104 U/L (46-116); ALT/SGPT 12 U/L (7.0-40); AST/SGOT 17 U/L (<34); BILIRUBIN,DIRECT < 0.1 MG/DL (<0.4); BILIRUBIN,TOTAL 0.2 MG/DL (0.3-1.2); BLOOD UREA NITROGEN 7 MG/DL (9-23); CALCIUM LEVEL 8.1 MG/DL (8.3-10.6); CARBON DIOXIDE LEVEL 24 MMOL/L (20-31); CHLORIDE LEVEL 101 MMOL/L (98-107); CREATININE FOR GFR 0.77 MG/DL (0.55-1.30); GLOMERULAR FILTRATION RATE > 60.0 (>39); GLUCOSE, FASTING 154 MG/DL (74-106); POTASSIUM SERUM 3.2 MMOL/L (3.5-5.1); SODIUM LEVEL 136 MMOL/L (136-145); TOTAL PROTEIN 7.7 G/DL (5.7-8.2)
[2023-04-14] MEDS ORDERED: ISOVUE-370 76% 100ML VIAL As Ordered ONE (11:06)
[2023-04-14 11:16] LABS: BASO % 0.2 % (0.0-1.0); EOS # 0.1 10^3/uL (0.0-0.5); EOS % 0.6 % (0.0-3.0); HEMATOCRIT 37.7 % (36.0-47.0); HEMOGLOBIN 12.3 g/dl (12.0-15.5); LYMPH # 0.9 10^3/uL (1.5-5.0); LYMPH % 6.7 % (24.0-44.0); MEAN CORPUSCULAR HEMOGLOBIN 29.6 pg (27.0-33.0); MEAN CORPUSCULAR HGB CONC 32.6 g/dl (32.0-36.5); MEAN CORPUSCULAR VOLUME 90.6 fl (80.0-96.0); MONO # 0.5 10^3/uL (0.0-0.8); MONO % 3.8 % (2.0-8.0); NEUTROPHILS # 11.4 10^3/uL (1.5-8.5); NEUTROPHILS % 87.4 % (36.0-66.0); PLATELET COUNT, AUTOMATED 367 10^3/uL (150-450); RED BLOOD COUNT 4.16 10^6/uL (4.00-5.40)
[2023-04-14] MEDS: METOCLOPRAMIDE INJ 10MG/2ML VIAL IV ONE (11:30)
[2023-04-14] MEDS: MORPHINE 2 MG/ML 1ML VIAL IV PRN (14:58)
[2023-04-14] MEDS ORDERED: MED REC IN PROGRESS XX SCH (15:20)
[2023-04-14 17:30] VITALS: BP 119/83; TEMP 97.2; O2SAT 98
[2023-04-14] MEDS ORDERED: ALBUTEROL SULFATE 2.5MG/0.5ML INH NEB SOLN NEB PRN (17:45)
[2023-04-14] MEDS: KCL 10MEQ/100ML SWI (KRUN) 10 MEQ in IV 1 EA IV ONE (18:53)
[2023-04-14] MEDS: PANTOPRAZOLE 40MG VIAL IV SCH (18:55)
[2023-04-14] MEDS: SYMBICORT 160/4.5MCG INHALER 6GM INH SCH (19:33)
[2023-04-14] MEDS: POTASSIUM CHLORIDE INJ 40 MEQ in LR 1,000 ML IV SCH (20:03)
[2023-04-14] MEDS ORDERED: [UNRECOGNIZED DRUG - OTHER] TOP (20:21)
[2023-04-14 20:30] VITALS: BP 127/66; TEMP 97.5; O2SAT 97
[2023-04-14] MEDS ORDERED: HOME MED LIST COMPLETE! XX SCH (20:40)
[2023-04-15 05:45] VITALS: BP 149/81; TEMP 97.7; O2SAT 93
[2023-04-15 06:53] LABS: BASO % 0.4 % (0.0-1.0); EOS # 0.1 10^3/uL (0.0-0.5); EOS % 1.6 % (0.0-3.0); HEMATOCRIT 33.9 % (36.0-47.0); LYMPH # 1.5 10^3/uL (1.5-5.0); LYMPH % 18.3 % (24.0-44.0); MEAN CORPUSCULAR HEMOGLOBIN 29.3 pg (27.0-33.0); MEAN CORPUSCULAR HGB CONC 32.4 g/dl (32.0-36.5); MEAN CORPUSCULAR VOLUME 90.2 fl (80.0-96.0); MONO % 12.2 % (2.0-8.0); NEUTROPHILS # 5.5 10^3/uL (1.5-8.5); NEUTROPHILS % 66.2 % (36.0-66.0); PLATELET COUNT, AUTOMATED 361 10^3/uL (150-450); RED BLOOD COUNT 3.76 10^6/uL (4.00-5.40); WHITE BLOOD COUNT 8.3 10^3/uL (4.0-10.0)
[2023-04-15 07:30] LABS: BLOOD UREA NITROGEN < 5 MG/DL (9-23); CALCIUM LEVEL 7.4 MG/DL (8.3-10.6); CARBON DIOXIDE LEVEL 25 MMOL/L (20-31); CHLORIDE LEVEL 108 MMOL/L (98-107); GLOMERULAR FILTRATION RATE > 60.0 (>39); GLUCOSE, FASTING 105 MG/DL (74-106); POTASSIUM SERUM 3.9 MMOL/L (3.5-5.1); SODIUM LEVEL 142 MMOL/L (136-145)
[2023-04-15] MEDS: HEPARIN SOD (PORCINE) 5000UNITS/ML 1ML VIAL/SYRINGE SC SCH (08:31)
[2023-04-15 14:00] VITALS: BP 128/76; TEMP 97.3; O2SAT 94
[2023-04-15] MEDS: LEVOTHYROXINE 100MCG TABLET (0.1MG) PO SCH (14:10)
[2023-04-15] MEDS: ESCITALOPRAM OXALATE 10 MG TAB (LEXAPRO) PO SCH (14:10)
[2023-04-15] MEDS: POTASSIUM CHLORIDE INJ 20 MEQ in LR 1,000 ML IV SCH (14:11)
[2023-04-15 21:21] VITALS: BP 162/69; TEMP 99.3; O2SAT 87
[2023-04-15 22:00] VITALS: BP 136/56; TEMP 98.6; O2SAT 96
[2023-04-16] MEDS ORDERED: CHLORASEPTIC SPRAY MT PRN (02:55)
[2023-04-16 06:00] VITALS: BP 121/56; TEMP 99.3; O2SAT 91
[2023-04-16 07:04] LABS: BASO % 0.2 % (0.0-1.0); EOS % 0.2 % (0.0-3.0); HEMATOCRIT 30.7 % (36.0-47.0); HEMOGLOBIN 9.9 g/dl (12.0-15.5); LYMPH # 1.3 10^3/uL (1.5-5.0); LYMPH % 6.6 % (24.0-44.0); MEAN CORPUSCULAR HEMOGLOBIN 29.5 pg (27.0-33.0); MEAN CORPUSCULAR HGB CONC 32.2 g/dl (32.0-36.5); MEAN CORPUSCULAR VOLUME 91.4 fl (80.0-96.0); MONO # 1.4 10^3/uL (0.0-0.8); MONO % 7.3 % (2.0-8.0); NEUTROPHILS # 16.1 10^3/uL (1.5-8.5); NEUTROPHILS % 84.8 % (36.0-66.0); PLATELET COUNT, AUTOMATED 314 10^3/uL (150-450); RED BLOOD COUNT 3.36 10^6/uL (4.00-5.40)
[2023-04-16 07:35] LABS: BLOOD UREA NITROGEN 7 MG/DL (9-23); CALCIUM LEVEL 7.3 MG/DL (8.3-10.6); CARBON DIOXIDE LEVEL 25 MMOL/L (20-31); CHLORIDE LEVEL 106 MMOL/L (98-107); CREATININE FOR GFR 0.76 MG/DL (0.55-1.30); GLOMERULAR FILTRATION RATE > 60.0 (>39); GLUCOSE, FASTING 105 MG/DL (74-106); POTASSIUM SERUM 4.2 MMOL/L (3.5-5.1); SODIUM LEVEL 138 MMOL/L (136-145)
[2023-04-16 08:07] LABS: PROCALCITONIN 0.37 ng/ml
[2023-04-16 14:00] VITALS: BP 124/82; TEMP 97.5; O2SAT 95
[2023-04-16] MEDS: LevoFLOXacin IV 750 MG in IV 1 EA IV SCH (20:22)
[2023-04-16 21:20] VITALS: BP 136/95; TEMP 98.8; O2SAT 95
[2023-04-16 23:03] VITALS: BP 155/75; TEMP 101.3; O2SAT 96
[2023-04-17] MEDS: ACETAMINOPHEN *IV* 1,000 MG in IV 1 EA IV ONE (00:39)
[2023-04-17 01:32] VITALS: TEMP 99.8
[2023-04-17 05:27] VITALS: BP 150/75; TEMP 97.3; O2SAT 95
[2023-04-17 06:13] LABS: BASO % 0.3 % (0.0-1.0); EOS # 0.1 10^3/uL (0.0-0.5); EOS % 0.4 % (0.0-3.0); HEMATOCRIT 32.6 % (36.0-47.0); HEMOGLOBIN 10.3 g/dl (12.0-15.5); LYMPH # 1.1 10^3/uL (1.5-5.0); LYMPH % 7.1 % (24.0-44.0); MEAN CORPUSCULAR HEMOGLOBIN 29.3 pg (27.0-33.0); MEAN CORPUSCULAR HGB CONC 31.6 g/dl (32.0-36.5); MEAN CORPUSCULAR VOLUME 92.9 fl (80.0-96.0); MONO # 1.4 10^3/uL (0.0-0.8); MONO % 8.5 % (2.0-8.0); NEUTROPHILS # 12.9 10^3/uL (1.5-8.5); NEUTROPHILS % 81.9 % (36.0-66.0); PLATELET COUNT, AUTOMATED 275 10^3/uL (150-450); RED BLOOD COUNT 3.51 10^6/uL (4.00-5.40); WHITE BLOOD COUNT 15.8 10^3/uL (4.0-10.0)
[2023-04-17 14:00] VITALS: BP 142/88; TEMP 98.6; O2SAT 93
[2023-04-17 21:20] VITALS: BP 132/66; TEMP 97.9; O2SAT 96
[2023-04-18 04:50] VITALS: BP 128/64; TEMP 97.7; O2SAT 95
[2023-04-18 06:09] LABS: BASO % 0.3 % (0.0-1.0); EOS # 0.2 10^3/uL (0.0-0.5); EOS % 2.6 % (0.0-3.0); HEMATOCRIT 33.4 % (36.0-47.0); HEMOGLOBIN 10.2 g/dl (12.0-15.5); LYMPH # 1.5 10^3/uL (1.5-5.0); LYMPH % 16.4 % (24.0-44.0); MEAN CORPUSCULAR HEMOGLOBIN 28.7 pg (27.0-33.0); MEAN CORPUSCULAR HGB CONC 30.5 g/dl (32.0-36.5); MEAN CORPUSCULAR VOLUME 94.1 fl (80.0-96.0); MONO % 11.3 % (2.0-8.0); NEUTROPHILS % 67.6 % (36.0-66.0); PLATELET COUNT, AUTOMATED 313 10^3/uL (150-450); RED BLOOD COUNT 3.55 10^6/uL (4.00-5.40); WHITE BLOOD COUNT 8.9 10^3/uL (4.0-10.0)
[2023-04-18 06:43] LABS: BLOOD UREA NITROGEN 7 MG/DL (9-23); CALCIUM LEVEL 7.6 MG/DL (8.3-10.6); CARBON DIOXIDE LEVEL 22 MMOL/L (20-31); CHLORIDE LEVEL 106 MMOL/L (98-107); CREATININE FOR GFR 0.73 MG/DL (0.55-1.30); GLOMERULAR FILTRATION RATE > 60.0 (>39); GLUCOSE, FASTING 72 MG/DL (74-106); POTASSIUM SERUM 4.7 MMOL/L (3.5-5.1); SODIUM LEVEL 138 MMOL/L (136-145)
[2023-04-18] MEDS ORDERED: ACETAMINOPHEN 1000MG 100ML IV BAG As Ordered ONE (06:51)
[2023-04-18] MEDS ORDERED: LIDOCAINE 2% 100MG/5ML SDV (FOR ANES.) As Ordered ONE (06:53)
[2023-04-18] MEDS ORDERED: propofoL 200 MG/20 ML VIAL As Ordered ONE (06:53)
[2023-04-18] MEDS ORDERED: ONDANSETRON 4MG 2ML VIAL As Ordered ONE (06:56)
[2023-04-18] MEDS ORDERED: fentaNYL 100 MCG/2 ML INJECTION As Ordered ONE (06:57)
[2023-04-18] MEDS ORDERED: MIDAZOLAM INJ 2MG/2ML VIAL As Ordered ONE (06:57)
[2023-04-18] MEDS ORDERED: SUCCINYLCHOLINE 100MG/5ML SYRINGE As Ordered ONE (08:56)
[2023-04-18] MEDS ORDERED: ROCURONIUM BROMIDE 50MG/5ML VIAL As Ordered ONE (08:56)
[2023-04-18] MEDS ORDERED: SUGAMMADEX SODIUM 500 MG/5 ML VIAL (BRIDION) As Ordered ONE (09:15)
[2023-04-18] MEDS: BOTOX THERAPEUTIC 100 UNIT VIAL As Ordered ONE (09:16)
[2023-04-18] MEDS ORDERED: oxyCODONE 5MG TAB PO PRN (09:40)
[2023-04-18] MEDS ORDERED: GLUCOSE 4GM CHEW TABLET PO PRN (09:40)
[2023-04-18] MEDS ORDERED: GLUCAGON INJ 1MG VIAL SC PRN (09:40)
[2023-04-18] MEDS ORDERED: HYDROMORPHONE HCL 0.5 MG/ 0.5 ML SYRINGE IV PRN (09:40)
[2023-04-18] MEDS ORDERED: fentaNYL 100 MCG/2 ML INJECTION IV PRN (09:40)
[2023-04-18] MEDS ORDERED: DEXTROSE 50% 50ML SYRINGE IV PRN (09:40)
[2023-04-18] MEDS ORDERED: INSULIN LISPRO (NovoLOG) PER UNIT SC PRN (09:40)
[2023-04-18] MEDS: LR 1,000 ML IV SCH (09:40)
[2023-04-18] MEDS ORDERED: ONDANSETRON 4MG 2ML VIAL IV PRN (09:40)
[2023-04-18] MEDS: ONDANSETRON 4MG 2ML VIAL IV PRN (09:52)
[2023-04-18 14:00] VITALS: BP 165/79; TEMP 97.7; O2SAT 93
[2023-04-18] MEDS: LIDOCAINE 1% MDV 20ML VIAL As Ordered ONE (14:10)
[2023-04-18] MEDS: CALCIUM GLUCONATE 1,000 MG in D5W MINI-BAG PLUS 100 ML IV ONE (16:57)
[2023-04-18 20:20] VITALS: BP 122/78; TEMP 98.6; O2SAT 98
[2023-04-19 06:11] VITALS: BP 124/68; TEMP 97.7; O2SAT 99
[2023-04-19 06:35] LABS: BLOOD UREA NITROGEN 5 MG/DL (9-23); CALCIUM LEVEL 7.6 MG/DL (8.3-10.6); CARBON DIOXIDE LEVEL 24 MMOL/L (20-31); CHLORIDE LEVEL 107 MMOL/L (98-107); GLOMERULAR FILTRATION RATE > 60.0 (>39); GLUCOSE, FASTING 77 MG/DL (74-106); POTASSIUM SERUM 4.8 MMOL/L (3.5-5.1); SODIUM LEVEL 139 MMOL/L (136-145)
[2023-04-19 06:36] LABS: BASO % 0.3 % (0.0-1.0); EOS % 0.6 % (0.0-3.0); HEMATOCRIT 30.3 % (36.0-47.0); HEMOGLOBIN 9.5 g/dl (12.0-15.5); LYMPH # 1.4 10^3/uL (1.5-5.0); MEAN CORPUSCULAR HEMOGLOBIN 28.7 pg (27.0-33.0); MEAN CORPUSCULAR HGB CONC 31.4 g/dl (32.0-36.5); MEAN CORPUSCULAR VOLUME 91.5 fl (80.0-96.0); MONO # 0.7 10^3/uL (0.0-0.8); MONO % 10.4 % (2.0-8.0); NEUTROPHILS # 4.2 10^3/uL (1.5-8.5); NEUTROPHILS % 64.6 % (36.0-66.0); PLATELET COUNT, AUTOMATED 294 10^3/uL (150-450); RED BLOOD COUNT 3.31 10^6/uL (4.00-5.40); WHITE BLOOD COUNT 6.4 10^3/uL (4.0-10.0)
[2023-04-19 14:00] VITALS: BP 122/65; TEMP 97.5; O2SAT 97
[2023-04-19 21:20] VITALS: BP 161/78; TEMP 97.5; O2SAT 97
[2023-04-19] MEDS: MORPHINE 4 MG/ML 1ML VIAL IV PRN (23:01)
[2023-04-20 05:56] VITALS: BP 138/72; TEMP 97.6; O2SAT 95
[2023-04-20 06:26] LABS: BASO % 0.7 % (0.0-1.0); EOS # 0.2 10^3/uL (0.0-0.5); EOS % 3.5 % (0.0-3.0); HEMOGLOBIN 10.1 g/dl (12.0-15.5); LYMPH # 1.7 10^3/uL (1.5-5.0); LYMPH % 30.7 % (24.0-44.0); MEAN CORPUSCULAR HEMOGLOBIN 29.4 pg (27.0-33.0); MEAN CORPUSCULAR HGB CONC 32.6 g/dl (32.0-36.5); MEAN CORPUSCULAR VOLUME 90.4 fl (80.0-96.0); MONO # 0.6 10^3/uL (0.0-0.8); MONO % 11.1 % (2.0-8.0); NEUTROPHILS # 2.9 10^3/uL (1.5-8.5); NEUTROPHILS % 51.4 % (36.0-66.0); PLATELET COUNT, AUTOMATED 309 10^3/uL (150-450); RED BLOOD COUNT 3.43 10^6/uL (4.00-5.40); WHITE BLOOD COUNT 5.7 10^3/uL (4.0-10.0)
[2023-04-20 07:06] LABS: BLOOD UREA NITROGEN < 5 MG/DL (9-23); CALCIUM LEVEL 8.3 MG/DL (8.3-10.6); CARBON DIOXIDE LEVEL 25 MMOL/L (20-31); CHLORIDE LEVEL 103 MMOL/L (98-107); GLOMERULAR FILTRATION RATE > 60.0 (>39); GLUCOSE, FASTING 70 MG/DL (74-106); POTASSIUM SERUM 4.5 MMOL/L (3.5-5.1); SODIUM LEVEL 136 MMOL/L (136-145)
[2023-04-20] MEDS: FUROSEMIDE 40MG/4ML VIAL IV ONE (09:38)
[2023-04-20 14:00] VITALS: BP 130/62; TEMP 97.1; O2SAT 93
[2023-04-20 21:48] VITALS: BP 152/67; TEMP 98.2; O2SAT 92
[2023-04-21 06:15] LABS: BASO % 0.6 % (0.0-1.0); EOS # 0.3 10^3/uL (0.0-0.5); EOS % 5.3 % (0.0-3.0); HEMATOCRIT 31.5 % (36.0-47.0); HEMOGLOBIN 10.3 g/dl (12.0-15.5); LYMPH # 1.4 10^3/uL (1.5-5.0); LYMPH % 30.1 % (24.0-44.0); MEAN CORPUSCULAR HEMOGLOBIN 29.3 pg (27.0-33.0); MEAN CORPUSCULAR HGB CONC 32.7 g/dl (32.0-36.5); MEAN CORPUSCULAR VOLUME 89.5 fl (80.0-96.0); MONO # 0.7 10^3/uL (0.0-0.8); MONO % 15.3 % (2.0-8.0); NEUTROPHILS # 2.1 10^3/uL (1.5-8.5); PLATELET COUNT, AUTOMATED 315 10^3/uL (150-450); RED BLOOD COUNT 3.52 10^6/uL (4.00-5.40); WHITE BLOOD COUNT 4.7 10^3/uL (4.0-10.0)
[2023-04-21 06:30] VITALS: BP 136/68; TEMP 98.1; O2SAT 92
[2023-04-21 06:36] LABS: BLOOD UREA NITROGEN < 5 MG/DL (9-23); CARBON DIOXIDE LEVEL 26 MMOL/L (20-31); CHLORIDE LEVEL 102 MMOL/L (98-107); CREATININE FOR GFR 0.72 MG/DL (0.55-1.30); GLOMERULAR FILTRATION RATE > 60.0 (>39); GLUCOSE, FASTING 80 MG/DL (74-106); POTASSIUM SERUM 4.3 MMOL/L (3.5-5.1); SODIUM LEVEL 138 MMOL/L (136-145)
[2023-04-21] MEDS ORDERED: dexmedeTOMIDine (4MCG/ML)200MCG/50ML BTL (PRECEDEX) As Ordered ONE (07:20)
[2023-04-21] MEDS ORDERED: ESMOLOL INJ 100MG/10ML VIAL As Ordered ONE (07:51)
[2023-04-21] MEDS ORDERED: atenoloL 25 MG TAB PO ONE (08:15)
[2023-04-21] MEDS ORDERED: fentaNYL 100 MCG/2 ML INJECTION IV PRN (08:25)
[2023-04-21] MEDS ORDERED: oxyCODONE 5MG TAB PO PRN (08:25)
[2023-04-21] MEDS ORDERED: HYDROMORPHONE HCL 0.5 MG/ 0.5 ML SYRINGE IV PRN (08:25)
[2023-04-21] MEDS ORDERED: GLUCOSE 4GM CHEW TABLET PO PRN (08:25)
[2023-04-21] MEDS ORDERED: INSULIN LISPRO (NovoLOG) PER UNIT SC PRN (08:25)
[2023-04-21] MEDS ORDERED: GLUCAGON INJ 1MG VIAL SC PRN (08:25)
[2023-04-21] MEDS ORDERED: DEXTROSE 50% 50ML SYRINGE IV PRN (08:25)
[2023-04-21] MEDS ORDERED: ONDANSETRON 4MG 2ML VIAL IV PRN (08:25)
[2023-04-21] MEDS ORDERED: HEPARIN DRIP 25,000 UNITS in IV 1 EA IV SCH ×2 (08:45→09:15)
[2023-04-21] MEDS ORDERED: HEPARIN SOD (PORCINE) 5000UNITS/ML 1ML VIAL/SYRINGE IV PRN (08:45)
[2023-04-21] MEDS: ADENOSINE 6MG 2ML INJECTION IV STA ×2 (08:45→08:51)
[2023-04-21] MEDS: METOPROLOL 5 MG/5 ML VIAL IV SCH (08:56)
[2023-04-21] MEDS: DIGOXIN INJ 0.5 MG/2 ML AMP IV ONE (08:59)
[2023-04-21] MEDS ORDERED: HEPARIN SOD (PORCINE) 5000UNITS/ML 1ML VIAL/SYRINGE IV ONE (09:00)
[2023-04-21] MEDS: CEFDINIR 300 MG CAP (OMNICEF) PO SCH (09:00)
[2023-04-21 09:02] LABS: CK-MB VALUE MASS < 1.0 NG/ML (<3.6)
[2023-04-21 09:04] LABS: CPK CREATINE PHOSPHOKINASE 54 U/L (34-145); MB/CK RELATIVE INDEX 1.85 (< OR =4)
[2023-04-21 09:06] LABS: THYROID STIMULATING HORMONE 5.973 uIU/ML (0.55-4.78); THYROXINE (T4) 9.9 UG/DL (4.5-10.9)
[2023-04-21 09:09] LABS: FREE THYROXINE INDEX 4.2 % (1.3-4.8); T UPTAKE 42.8 % (22.5-37.0)
[2023-04-21] MEDS: NS 1,000 ML IV ONE (09:15)
[2023-04-21] MEDS: diltiaZEM 125 MG in NS 100 ML IV SCH (11:00)
[2023-04-21] MEDS: LR 1,000 ML IV SCH (11:15)
[2023-04-21 11:42] LABS: HEMATOCRIT 34.8 % (36.0-47.0); HEMOGLOBIN 11.3 g/dl (12.0-15.5); MEAN CORPUSCULAR HEMOGLOBIN 28.9 pg (27.0-33.0); MEAN CORPUSCULAR HGB CONC 32.5 g/dl (32.0-36.5); PLATELET COUNT, AUTOMATED 291 10^3/uL (150-450); RED BLOOD COUNT 3.91 10^6/uL (4.00-5.40); WHITE BLOOD COUNT 7.3 10^3/uL (4.0-10.0)
[2023-04-21 13:52] VITALS: BP 141/63; TEMP 98.3; O2SAT 98
[2023-04-21 16:04] VITALS: BP 134/69; TEMP 96.9; O2SAT 96
[2023-04-21] MEDS ORDERED: ENOXAPARIN 100MG/1ML SYRINGE (J1650 PER 10MG) SC SCH (16:10)
[2023-04-21 19:42] VITALS: BP 117/61; TEMP 98.5; O2SAT 92
[2023-04-21] MEDS: atenoloL 50 MG TAB PO SCH (20:40)
[2023-04-21] MEDS: ENOXAPARIN 100MG/1ML SYRINGE (J1650 PER 10MG) SC SCH (20:40)
[2023-04-21 23:42] VITALS: BP 98/55; TEMP 97.6; O2SAT 90
[2023-04-22] VITALS (7 sets, daily range): BP systolic 110–158; BP diastolic 55–78; TEMP 97.3–99.2; O2SAT 91–95
[2023-04-22] MEDS: DIGOXIN INJ 0.5 MG/2 ML AMP IV SCH (10:07)
[2023-04-22 11:40] LABS: BASO % 0.6 % (0.0-1.0); EOS # 0.3 10^3/uL (0.0-0.5); HEMATOCRIT 30.8 % (36.0-47.0); HEMOGLOBIN 9.9 g/dl (12.0-15.5); LYMPH # 1.3 10^3/uL (1.5-5.0); LYMPH % 25.3 % (24.0-44.0); MEAN CORPUSCULAR HEMOGLOBIN 29.1 pg (27.0-33.0); MEAN CORPUSCULAR HGB CONC 32.1 g/dl (32.0-36.5); MEAN CORPUSCULAR VOLUME 90.6 fl (80.0-96.0); MONO # 0.8 10^3/uL (0.0-0.8); MONO % 15.1 % (2.0-8.0); NEUTROPHILS # 2.6 10^3/uL (1.5-8.5); NEUTROPHILS % 49.6 % (36.0-66.0); PLATELET COUNT, AUTOMATED 283 10^3/uL (150-450); WHITE BLOOD COUNT 5.2 10^3/uL (4.0-10.0)
[2023-04-22 12:12] LABS: BLOOD UREA NITROGEN < 5 MG/DL (9-23); CALCIUM LEVEL 7.7 MG/DL (8.3-10.6); CARBON DIOXIDE LEVEL 27 MMOL/L (20-31); CHLORIDE LEVEL 102 MMOL/L (98-107); CREATININE FOR GFR 0.68 MG/DL (0.55-1.30); GLOMERULAR FILTRATION RATE > 60.0 (>39); GLUCOSE, FASTING 85 MG/DL (74-106); POTASSIUM SERUM 3.8 MMOL/L (3.5-5.1); SODIUM LEVEL 135 MMOL/L (136-145)
[2023-04-22] MEDS: traZODone 25MG PER 1/2 TABLET PO PRN (22:16)
[2023-04-23 05:05] VITALS: BP 127/60; TEMP 98.8; O2SAT 92
[2023-04-23 07:35] VITALS: BP 172/70; TEMP 97.6; O2SAT 93
[2023-04-23 08:40] VITALS: BP 124/72
[2023-04-23 12:07] VITALS: BP 108/68; TEMP 97.6; O2SAT 97
[2023-04-23] MEDS: ALPRAZolam 0.25 MG TAB PO ONE (12:37)
[2023-04-23] MEDS: PERCOCET 5MG/325MG TAB PO PRN (12:39)
[2023-04-23 16:41] VITALS: BP 106/62; TEMP 97.8; O2SAT 94
[2023-04-23] MEDS: ALPRAZolam 0.25 MG TAB PO PRN (19:02)
[2023-04-23 19:23] VITALS: BP 149/67; TEMP 98.1; O2SAT 95
[2023-04-23] MEDS: NYSTATIN 100,000 UNITS/GM TOPICAL PWD 15GM TOP SCH (22:43)
[2023-04-24 06:21] VITALS: BP 142/63; TEMP 98.3; O2SAT 92
[2023-04-24 07:33] LABS: HEMATOCRIT 31.7 % (36.0-47.0); HEMOGLOBIN 10.1 g/dl (12.0-15.5); MEAN CORPUSCULAR HGB CONC 31.9 g/dl (32.0-36.5); MEAN CORPUSCULAR VOLUME 91.1 fl (80.0-96.0); PLATELET COUNT, AUTOMATED 276 10^3/uL (150-450); RED BLOOD COUNT 3.48 10^6/uL (4.00-5.40); WHITE BLOOD COUNT 4.9 10^3/uL (4.0-10.0)
[2023-04-24 07:51] VITALS: BP 138/62; TEMP 97.5; O2SAT 91
[2023-04-24 07:57] LABS: DIGOXIN LEVEL 0.8 NG/ML (0.8-2.0)
[2023-04-24] MEDS: METOPROLOL TART 25 MG TABLET PO SCH (08:10)
[2023-04-24 11:56] VITALS: BP 132/58; TEMP 96.4; O2SAT 93
[2023-04-24 12:14] LABS: BLOOD UREA NITROGEN < 5 MG/DL (9-23); CALCIUM LEVEL 7.5 MG/DL (8.3-10.6); CARBON DIOXIDE LEVEL 27 MMOL/L (20-31); CHLORIDE LEVEL 107 MMOL/L (98-107); CREATININE FOR GFR 0.67 MG/DL (0.55-1.30); GLOMERULAR FILTRATION RATE > 60.0 (>39); GLUCOSE, FASTING 80 MG/DL (74-106); POTASSIUM SERUM 4.3 MMOL/L (3.5-5.1); SODIUM LEVEL 139 MMOL/L (136-145)
[2023-04-24 14:15] LABS: MAGNESIUM LEVEL 1.2 MG/DL (1.8-2.4)
[2023-04-24] MEDS: MAG SULF 1GM/100ML (MAG RUN) 1 GM in IV 1 EA IV SCH (16:01)
[2023-04-24 16:06] VITALS: BP 100/60; TEMP 96.3; O2SAT 91
[2023-04-24 19:02] VITALS: BP 118/60; TEMP 98.8; O2SAT 97
[2023-04-24 23:28] VITALS: BP 114/60; TEMP 98.2; O2SAT 93
[2023-04-25 04:17] VITALS: BP 108/64; TEMP 97.6; O2SAT 95
[2023-04-25 06:28] LABS: HEMATOCRIT 31.1 % (36.0-47.0); HEMOGLOBIN 9.9 g/dl (12.0-15.5); MEAN CORPUSCULAR HEMOGLOBIN 28.9 pg (27.0-33.0); MEAN CORPUSCULAR HGB CONC 31.8 g/dl (32.0-36.5); MEAN CORPUSCULAR VOLUME 90.7 fl (80.0-96.0); PLATELET COUNT, AUTOMATED 273 10^3/uL (150-450); RED BLOOD COUNT 3.43 10^6/uL (4.00-5.40); WHITE BLOOD COUNT 4.2 10^3/uL (4.0-10.0)
[2023-04-25 06:47] LABS: ANISOCYTOSIS 1+; ATYPICAL LYMPH 7 % (0-5); EOSINOPHILS 7 % (0-3); LYMPHOCYTES 39 % (16-44); MONOCYTES 16 % (0-5); MYELOCYTES 2 % (0-0); NEUTROPHILS 29 % (28-66); PLATELET ESTIMATE NORMAL (NORMAL); POLYCHROMASIA 1+
[2023-04-25 06:51] LABS: DIGOXIN LEVEL 0.6 NG/ML (0.8-2.0)
[2023-04-25 07:06] LABS: BLOOD UREA NITROGEN < 5 MG/DL (9-23); CALCIUM LEVEL 7.6 MG/DL (8.3-10.6); CARBON DIOXIDE LEVEL 25 MMOL/L (20-31); CHLORIDE LEVEL 107 MMOL/L (98-107); CREATININE FOR GFR 0.62 MG/DL (0.55-1.30); GLOMERULAR FILTRATION RATE > 60.0 (>39); GLUCOSE, FASTING 85 MG/DL (74-106); MAGNESIUM LEVEL 1.6 MG/DL (1.8-2.4); POTASSIUM SERUM 3.9 MMOL/L (3.5-5.1); SODIUM LEVEL 139 MMOL/L (136-145)
[2023-04-25 07:49] VITALS: BP 112/72; O2SAT 94
[2023-04-25 08:11] VITALS: TEMP 98.6
[2023-04-25] MEDS: DOCUSATE SOD LIQ 100MG/10ML UDC GT SCH (09:31)
[2023-04-25 11:39] LABS: CHOLESTEROL LEVEL 138 MG/DL (<200); CHOLESTEROL RISK RATIO 6.13 (<5); HDL CHOLESTEROL 22.5 MG/DL (>40); LDL CHOLESTEROL 57.9 MG/DL (<100); NON-HDL-C 115.5 MG/DL; TRIGLYCERIDES LEVEL 288 MG/DL (<150)
[2023-04-25 12:03] VITALS: BP 128/62; TEMP 97.6; O2SAT 93
[2023-04-25] MEDS: METOPROLOL TART 12.5 MG PER 1/2 TAB PO SCH (12:16)
[2023-04-25] MEDS ORDERED: ENOXAPARIN 100MG/1ML SYRINGE (J1650 PER 10MG) SC SCH (13:05)
[2023-04-25] MEDS: ENOXAPARIN 100MG/1ML SYRINGE (J1650 PER 10MG) SC ONE (13:48)
[2023-04-25 16:10] VITALS: BP 126/52; TEMP 97.7; O2SAT 93
[2023-04-25 20:57] VITALS: BP 130/60; TEMP 98.5; O2SAT 94
[2023-04-25] MEDS: ROSUVASTATIN 10 MG TAB (CRESTOR) PO SCH (21:38)
[2023-04-26] VITALS (11 sets, daily range): BP systolic 103–141; BP diastolic 50–70; TEMP 96.5–98; O2SAT 88–99
[2023-04-26 05:46] LABS: BASO % 0.9 % (0.0-1.0); EOS # 0.2 10^3/uL (0.0-0.5); EOS % 4.6 % (0.0-3.0); HEMATOCRIT 30.1 % (36.0-47.0); HEMOGLOBIN 9.4 g/dl (12.0-15.5); LYMPH # 1.6 10^3/uL (1.5-5.0); LYMPH % 37.5 % (24.0-44.0); MEAN CORPUSCULAR HEMOGLOBIN 28.5 pg (27.0-33.0); MEAN CORPUSCULAR HGB CONC 31.2 g/dl (32.0-36.5); MEAN CORPUSCULAR VOLUME 91.2 fl (80.0-96.0); MONO # 0.7 10^3/uL (0.0-0.8); MONO % 16.6 % (2.0-8.0); NEUTROPHILS # 1.5 10^3/uL (1.5-8.5); NEUTROPHILS % 34.2 % (36.0-66.0); PLATELET COUNT, AUTOMATED 255 10^3/uL (150-450); WHITE BLOOD COUNT 4.4 10^3/uL (4.0-10.0)
[2023-04-26 06:11] LABS: DIGOXIN LEVEL 0.5 NG/ML (0.8-2.0)
[2023-04-26 06:14] LABS: BLOOD UREA NITROGEN < 5 MG/DL (9-23); CALCIUM LEVEL 7.4 MG/DL (8.3-10.6); CARBON DIOXIDE LEVEL 25 MMOL/L (20-31); CHLORIDE LEVEL 105 MMOL/L (98-107); CREATININE FOR GFR 0.56 MG/DL (0.55-1.30); GLOMERULAR FILTRATION RATE > 60.0 (>39); GLUCOSE, FASTING 89 MG/DL (74-106); MAGNESIUM LEVEL 1.5 MG/DL (1.8-2.4); SODIUM LEVEL 137 MMOL/L (136-145)
[2023-04-26] MEDS ORDERED: KETOROLAC 60MG 2ML VIAL As Ordered ONE (07:03)
[2023-04-26] MEDS ORDERED: VASOPRESSIN INJ 20UNITS/ML 1ML VIAL As Ordered ONE (08:38)
[2023-04-26] MEDS ORDERED: HYDROmorphone HCL 2MG/ML 1ML VIAL As Ordered ONE (08:51)
[2023-04-26] MEDS: ceFAZolin 2 GM/D5W 50 ML IV BAG As Ordered ONE (08:58)
[2023-04-26] MEDS ORDERED: DEXTROSE 50% 50ML SYRINGE IV PRN (10:00)
[2023-04-26] MEDS ORDERED: INSULIN LISPRO (NovoLOG) PER UNIT SC PRN (10:00)
[2023-04-26] MEDS ORDERED: GLUCOSE 4GM CHEW TABLET PO PRN (10:00)
[2023-04-26] MEDS ORDERED: fentaNYL 100 MCG/2 ML INJECTION IV PRN (10:00)
[2023-04-26] MEDS ORDERED: ONDANSETRON 4MG 2ML VIAL IV PRN (10:00)
[2023-04-26] MEDS ORDERED: MORPHINE 2 MG/ML 1ML VIAL IV PRN (10:00)
[2023-04-26] MEDS ORDERED: GLUCAGON INJ 1MG VIAL SC PRN (10:00)
[2023-04-26] MEDS ORDERED: oxyCODONE 5MG TAB PO PRN (10:00)
[2023-04-27 00:57] VITALS: BP 138/63; TEMP 97.9; O2SAT 96
[2023-04-27 04:51] VITALS: BP 152/72; TEMP 97.1; O2SAT 95
[2023-04-27] MEDS: MORPHINE 2 MG/ML 1ML VIAL IV PRN (05:31)
[2023-04-27 05:56] LABS: BASO % 0.2 % (0.0-1.0); EOS % 0.2 % (0.0-3.0); HEMATOCRIT 29.3 % (36.0-47.0); HEMOGLOBIN 9.2 g/dl (12.0-15.5); LYMPH # 1.1 10^3/uL (1.5-5.0); LYMPH % 11.2 % (24.0-44.0); MEAN CORPUSCULAR HEMOGLOBIN 29.3 pg (27.0-33.0); MEAN CORPUSCULAR HGB CONC 31.4 g/dl (32.0-36.5); MEAN CORPUSCULAR VOLUME 93.3 fl (80.0-96.0); MONO # 1.1 10^3/uL (0.0-0.8); MONO % 10.6 % (2.0-8.0); NEUTROPHILS # 7.7 10^3/uL (1.5-8.5); NEUTROPHILS % 75.7 % (36.0-66.0); PLATELET COUNT, AUTOMATED 257 10^3/uL (150-450); RED BLOOD COUNT 3.14 10^6/uL (4.00-5.40); WHITE BLOOD COUNT 10.2 10^3/uL (4.0-10.0)
[2023-04-27 06:29] LABS: DIGOXIN LEVEL 0.4 NG/ML (0.8-2.0)
[2023-04-27 06:31] LABS: BLOOD UREA NITROGEN < 5 MG/DL (9-23); CALCIUM LEVEL 7.7 MG/DL (8.3-10.6); CARBON DIOXIDE LEVEL 26 MMOL/L (20-31); CHLORIDE LEVEL 109 MMOL/L (98-107); CREATININE FOR GFR 0.61 MG/DL (0.55-1.30); GLOMERULAR FILTRATION RATE > 60.0 (>39); GLUCOSE, FASTING 104 MG/DL (74-106); MAGNESIUM LEVEL 1.4 MG/DL (1.8-2.4); POTASSIUM SERUM 4.9 MMOL/L (3.5-5.1); SODIUM LEVEL 139 MMOL/L (136-145)
[2023-04-27 08:23] VITALS: BP 130/62; TEMP 97.3; O2SAT 93
[2023-04-27] MEDS ORDERED: APIXABAN 5 MG TAB (ELIQUIS) PO SCH (09:00)
[2023-04-27] MEDS: LR 1,000 ML IV ONE (12:32)
[2023-04-27 16:07] VITALS: TEMP 97.2; O2SAT 95
[2023-04-27 16:10] VITALS: BP 142/68; TEMP 98.6; O2SAT 93
[2023-04-27] MEDS: MAG SULF 1GM/100ML (MAG RUN) 1 GM in IV 1 EA IV SCH (16:25)
[2023-04-27] MEDS ORDERED: MORPHINE 2 MG/ML 1ML VIAL IV ONE (17:00)
[2023-04-27] MEDS: PERCOCET 5MG/325MG TAB PO ONE (17:20)
[2023-04-27] MEDS: KETOROLAC 30 MG/ML 1ML VIAL IV ONE (17:21)
[2023-04-27 20:27] VITALS: BP 130/62; TEMP 98.5; O2SAT 90
[2023-04-28 04:13] VITALS: BP 137/56; TEMP 98; O2SAT 90
[2023-04-28 07:27] VITALS: TEMP 97.9; O2SAT 90
[2023-04-28 08:00] VITALS: BP 144/62
[2023-04-28] MEDS: diphenhydrAMINE CREAM 30GM TOP SCH (12:21)
[2023-04-28] MEDS ORDERED: diphenhydrAMINE 50MG CAP PO ONE (13:25)
[2023-04-28] MEDS: diphenhydrAMINE 25MG CAP PO ONE (13:40)
[2023-04-28 17:40] VITALS: BP 133/64; TEMP 98.5; O2SAT 93
[2023-04-28 20:36] VITALS: BP 129/57; TEMP 99.2; O2SAT 91
[2023-04-29] MEDS: MORPHINE 2 MG/ML 1ML VIAL IV PRN (03:50)
[2023-04-29 05:48] VITALS: BP 111/56; TEMP 98.4; O2SAT 91
[2023-04-29 08:04] VITALS: BP 110/58; TEMP 98.4; O2SAT 91
[2023-04-29] MEDS: LR 1,000 ML IV SCH (08:43)
[2023-04-29] MEDS: ENOXAPARIN 100MG/1ML SYRINGE (J1650 PER 10MG) SC SCH (08:46)
[2023-04-29 09:15] LABS: ALBUMIN 1.9 G/DL (3.2-5.2); ALKALINE PHOSPHATASE 66 U/L (46-116); ALT/SGPT < 9 U/L (7.0-40); AST/SGOT 15 U/L (<34); BILIRUBIN,TOTAL 0.3 MG/DL (0.3-1.2); BLOOD UREA NITROGEN 5 MG/DL (9-23); CALCIUM LEVEL 7.2 MG/DL (8.3-10.6); CARBON DIOXIDE LEVEL 23 MMOL/L (20-31); CHLORIDE LEVEL 107 MMOL/L (98-107); GLOMERULAR FILTRATION RATE > 60.0 (>39); GLUCOSE, FASTING 82 MG/DL (74-106); MAGNESIUM LEVEL 1.6 MG/DL (1.8-2.4); POTASSIUM SERUM 4.7 MMOL/L (3.5-5.1); SODIUM LEVEL 135 MMOL/L (136-145)
[2023-04-29 09:27] LABS: PROCALCITONIN 0.15 ng/ml
[2023-04-29] MEDS: VANICREAM MOISTURIZING SKIN CREAM 113GM TUBE TOP SCH (09:52)
[2023-04-29] MEDS: D5W/0.45% SODIUM CHLORIDE 1,000 ML IV SCH (10:51)
[2023-04-29] MEDS: PERCOCET 5MG/325MG TAB PO ONE (11:14)
[2023-04-29] MEDS: diphenhydrAMINE 25MG CAP PO ONE (11:14)
[2023-04-29] MEDS ORDERED: PERCOCET 5MG/325MG TAB PO PRN (13:00)
[2023-04-29] MEDS: PERCOCET 5MG/325MG TAB PO PRN (14:37)
[2023-04-29 15:43] VITALS: BP 124/68; TEMP 98.4; O2SAT 92
[2023-04-29 19:41] VITALS: BP 102/58; TEMP 97.9; O2SAT 92
[2023-04-30 03:59] VITALS: BP 124/60; TEMP 98.6; O2SAT 96
[2023-04-30 07:23] VITALS: BP 141/65; TEMP 97.9; O2SAT 90
[2023-04-30] MEDS ORDERED: NALOXONE INJ 0.4MG/1ML VIAL IV PRN (09:20)
[2023-04-30] MEDS ORDERED: KETOROLAC 30 MG/ML 1ML VIAL As Ordered ONE (09:35)
[2023-04-30] MEDS: KETOROLAC 30 MG/ML 1ML VIAL IV ONE (09:41)
[2023-04-30] MEDS: NORCO, ANEXSIA 5/325MG TABLET (HYDROcodone/ACETAMINOPHEN) PO ONE (09:50)
[2023-04-30 11:30] VITALS: TEMP 98
[2023-04-30] MEDS: MORPHINE 2 MG/ML 1ML VIAL IV ONE (12:11)
[2023-04-30] MEDS: diphenhydrAMINE 25MG CAP PO ONE (12:11)
[2023-04-30 15:51] VITALS: BP 107/55; TEMP 98.1; O2SAT 90
[2023-04-30 19:43] VITALS: BP 108/56; TEMP 98.1; O2SAT 90
[2023-04-30] MEDS: NORCO, ANEXSIA 5/325MG TABLET (HYDROcodone/ACETAMINOPHEN) PO PRN (19:49)
[2023-04-30] MEDS: diphenhydrAMINE 25MG CAP PO PRN (20:37)
[2023-05-01 04:11] VITALS: BP 106/59; TEMP 98; O2SAT 91
[2023-05-01 07:50] VITALS: BP 118/62; TEMP 97.2; O2SAT 93
[2023-05-01 14:58] LABS: BASO % 0.4 % (0.0-1.0); EOS # 0.2 10^3/uL (0.0-0.5); EOS % 2.3 % (0.0-3.0); HEMATOCRIT 25.6 % (36.0-47.0); HEMOGLOBIN 8.2 g/dl (12.0-15.5); LYMPH # 1.6 10^3/uL (1.5-5.0); LYMPH % 19.1 % (24.0-44.0); MEAN CORPUSCULAR HEMOGLOBIN 29.2 pg (27.0-33.0); MEAN CORPUSCULAR VOLUME 91.1 fl (80.0-96.0); MONO # 1.2 10^3/uL (0.0-0.8); MONO % 14.4 % (2.0-8.0); NEUTROPHILS # 5.2 10^3/uL (1.5-8.5); NEUTROPHILS % 62.7 % (36.0-66.0); PLATELET COUNT, AUTOMATED 276 10^3/uL (150-450); RED BLOOD COUNT 2.81 10^6/uL (4.00-5.40); WHITE BLOOD COUNT 8.3 10^3/uL (4.0-10.0)
[2023-05-01 15:10] LABS: BLOOD UREA NITROGEN 6 MG/DL (9-23); CALCIUM LEVEL 7.3 MG/DL (8.3-10.6); CARBON DIOXIDE LEVEL 22 MMOL/L (20-31); CHLORIDE LEVEL 104 MMOL/L (98-107); CREATININE FOR GFR 0.66 MG/DL (0.55-1.30); GLOMERULAR FILTRATION RATE > 60.0 (>39); GLUCOSE, FASTING 123 MG/DL (74-106); MAGNESIUM LEVEL 1.3 MG/DL (1.8-2.4); POTASSIUM SERUM 4.5 MMOL/L (3.5-5.1); SODIUM LEVEL 133 MMOL/L (136-145)
[2023-05-01] MEDS: ONDANSETRON 4MG TAB PO PRN (15:24)
[2023-05-01] MEDS: SENNA 8.6 MG TAB (SENOKOT) PO ONE (15:25)
[2023-05-01 16:24] VITALS: BP 120/76; TEMP 98.7; O2SAT 93
[2023-05-01 17:46] LABS: ALBUMIN 1.6 G/DL (3.2-5.2); ALKALINE PHOSPHATASE 73 U/L (46-116); ALT/SGPT < 9 U/L (7.0-40); AST/SGOT 10 U/L (<34); BILIRUBIN,TOTAL 0.4 MG/DL (0.3-1.2); TOTAL PROTEIN 4.9 G/DL (5.7-8.2)
[2023-05-01 19:40] VITALS: BP 126/82; TEMP 98.9; O2SAT 94
[2023-05-01] MEDS: DOCUSATE SOD LIQ 100MG/10ML UDC PO SCH (20:16)
[2023-05-01] MEDS: SENNA 8.6 MG TAB (SENOKOT) PO SCH (20:16)
[2023-05-02] VITALS (7 sets, daily range): BP systolic 103–124; BP diastolic 53–64; TEMP 97.9–99.3; O2SAT 92–98
[2023-05-02] MEDS: MAG SULF 1GM/100ML (MAG RUN) 1 GM in IV 1 EA IV SCH (05:37)
[2023-05-02] MEDS ORDERED: MOM 30ML SUSPENSION UDC PO PRN (11:15)
[2023-05-02] MEDS: MOM 30ML SUSPENSION UDC PO ONE (12:40)
[2023-05-02 16:43] LABS: HEMATOCRIT 25.6 % (36.0-47.0); HEMOGLOBIN 8.3 g/dl (12.0-15.5); MEAN CORPUSCULAR HEMOGLOBIN 29.6 pg (27.0-33.0); MEAN CORPUSCULAR HGB CONC 32.4 g/dl (32.0-36.5); MEAN CORPUSCULAR VOLUME 91.4 fl (80.0-96.0); PLATELET COUNT, AUTOMATED 293 10^3/uL (150-450); WHITE BLOOD COUNT 6.3 10^3/uL (4.0-10.0)
[2023-05-02 17:32] LABS: BLOOD UREA NITROGEN 7 MG/DL (9-23); CARBON DIOXIDE LEVEL 22 MMOL/L (20-31); CHLORIDE LEVEL 105 MMOL/L (98-107); CREATININE FOR GFR 0.64 MG/DL (0.55-1.30); GLOMERULAR FILTRATION RATE > 60.0 (>39); GLUCOSE, FASTING 128 MG/DL (74-106); MAGNESIUM LEVEL 1.9 MG/DL (1.8-2.4); POTASSIUM SERUM 4.3 MMOL/L (3.5-5.1); SODIUM LEVEL 134 MMOL/L (136-145)
[2023-05-03 05:26] VITALS: BP 118/61; TEMP 97.3; O2SAT 96
[2023-05-03] MEDS: FAMOTIDINE 20 MG TAB PO ONE (09:08)
[2023-05-03 09:09] VITALS: BP 118/61
[2023-05-03] MEDS ORDERED: HYDR-3715 PO (09:26)
[2023-05-03] MEDS ORDERED: SENO8.6T5 PO (09:26)
[2023-05-03] MEDS ORDERED: COLA100C5 PO (09:26)
[2023-05-03] MEDS ORDERED: ELIQ5TAB PO (09:28)
[2023-05-03] MEDS ORDERED: METO1TAB87 PO (09:28)
== END 2023-05-03 11:55 | DRG 353 ==
LOC: M ED 08:21 → EDBD 08:21 → M ED INP 15:03 → ENRESERV 16:17 → M MSPAV 17:26 → M PCU 04-21 13:19 → M MS5PR 05-02 22:34
PROVIDERS: ADMIT Internal Medicine Nephrology; ATTEND General Practice
PROC: 3E0234Z Introduction of Serum, Toxoid and Vaccine into Muscle, Percutaneous Approach (ICD-10-PCS; 2023-04-18)
PROC: 05HD33Z Insertion of Infusion Device into Right Cephalic Vein, Percutaneous Approach (ICD-10-PCS; 2023-04-21)
PROC: B246ZZZ Ultrasonography of Right and Left Heart (ICD-10-PCS; 2023-04-24)
PROC: 0WUF0JZ Supplement Abdominal Wall with Synthetic Substitute, Open Approach (ICD-10-PCS; principal; 2023-04-26 07:30)
DX: K43.6 Other and unspecified ventral hernia with obstruction, without gangrene (principal); J18.9 Pneumonia, unspecified organism; I26.99 Other pulmonary embolism without acute cor pulmonale; Z68.42 Body mass index [BMI] 45.0-49.9, adult; I47.10 Supraventricular tachycardia, unspecified; K56.600 Partial intestinal obstruction, unspecified as to cause; E87.1 Hypo-osmolality and hyponatremia; D62 Acute posthemorrhagic anemia; E11.42 Type 2 diabetes mellitus with diabetic polyneuropathy; Z53.09 Procedure and treatment not carried out because of other contraindication; E66.01 Morbid (severe) obesity due to excess calories; G47.33 Obstructive sleep apnea (adult) (pediatric); J45.909 Unspecified asthma, uncomplicated; H40.9 Unspecified glaucoma; Z66 Do not resuscitate; Q96.8 Other variants of Turner's syndrome; F70 Mild intellectual disabilities; F40.240 Claustrophobia; K58.9 Irritable bowel syndrome, unspecified; I10 Essential (primary) hypertension; E03.9 Hypothyroidism, unspecified; F41.1 Generalized anxiety disorder; F32.A Depression, unspecified; D50.9 Iron deficiency anemia, unspecified; I49.1 Atrial premature depolarization; M85.88 Other specified disorders of bone density and structure, other site; K31.819 Angiodysplasia of stomach and duodenum without bleeding; F79 Unspecified intellectual disabilities; E87.6 Hypokalemia; M47.816 Spondylosis without myelopathy or radiculopathy, lumbar region; M48.02 Spinal stenosis, cervical region; M47.812 Spondylosis without myelopathy or radiculopathy, cervical region; E83.51 Hypocalcemia; I48.0 Paroxysmal atrial fibrillation; I27.20 Pulmonary hypertension, unspecified; I27.21 Secondary pulmonary arterial hypertension; I44.0 Atrioventricular block, first degree; E83.42 Hypomagnesemia; E88.09 Other disorders of plasma-protein metabolism, not elsewhere classified; Z86.718 Personal history of other venous thrombosis and embolism; Z96.651 Presence of right artificial knee joint; Z98.49 Cataract extraction status, unspecified eye; Z79.890 Hormone replacement therapy; Z79.899 Other long term (current) drug therapy; Z20.822 Contact with and (suspected) exposure to COVID-19; Z74.01 Bed confinement status

== ENCOUNTER → 2023-04-17 | Outpatient (REF) | payer MEDICARE, MEDICAID ==
[~2023-04-17] MED LIST changes: +BUDE32SU6; -BUDE32SU6 NARES; -DICL20GE TOP; +DICL20GE TP; +[UNRECOGNIZED DRUG - OTHER] TOP
== END ==
PROVIDERS: ATTEND Physician Assistant
DX: Z53.8 Procedure and treatment not carried out for other reasons (principal)

== ENCOUNTER → 2023-05-04 | Outpatient (REF) | payer MEDICARE, MEDICAID ==
[~2023-05-04] MED LIST changes: +COLA100C5 PO; +ELIQ5TAB PO; +HYDR-3715 PO; +METO1TAB87 PO; +SENO8.6T5 PO
[2023-05-04 14:14] LABS: HEMATOCRIT 24.3 % (36.0-47.0); HEMOGLOBIN 7.6 g/dl (12.0-15.5); MEAN CORPUSCULAR HEMOGLOBIN 28.9 pg (27.0-33.0); MEAN CORPUSCULAR HGB CONC 31.3 g/dl (32.0-36.5); MEAN CORPUSCULAR VOLUME 92.4 fl (80.0-96.0); PLATELET COUNT, AUTOMATED 299 10^3/uL (150-450); RED BLOOD COUNT 2.63 10^6/uL (4.00-5.40); WHITE BLOOD COUNT 9.4 10^3/uL (4.0-10.0)
[2023-05-04 14:35] LABS: BLOOD UREA NITROGEN 7 MG/DL (9-23); CALCIUM LEVEL 6.9 MG/DL (8.3-10.6); CARBON DIOXIDE LEVEL 23 MMOL/L (20-31); CHLORIDE LEVEL 103 MMOL/L (98-107); CREATININE FOR GFR 0.69 MG/DL (0.55-1.30); GLOMERULAR FILTRATION RATE > 60.0 (>39); GLUCOSE, FASTING 82 MG/DL (74-106); SODIUM LEVEL 134 MMOL/L (136-145)
== END ==
PROVIDERS: ATTEND Internal Medicine
DX: D64.9 Anemia, unspecified (principal)

== ENCOUNTER → 2023-05-08 | Outpatient (REF) | payer MEDICARE, MEDICAID ==
[~2023-05-08] MED LIST changes: +ACET32TAB PO; -BUDE32SU6; +BUDE32SU6 NARES; +DICL100G10 TOP; +DICL20GE TOP; -DICL20GE TP; +FLON1SPR NARES; +HYDR-3713 PO; +MM S100C PO; +NEUR300C PO; +POLY510P14 PO; +SENN-186 PO; +TORS100T PO; +TUMS500C PO
[2023-05-08 18:08] LABS: MEAN CORPUSCULAR HEMOGLOBIN 28.8 pg (27.0-33.0); MEAN CORPUSCULAR HGB CONC 31.6 g/dl (32.0-36.5); MEAN CORPUSCULAR VOLUME 91.3 fl (80.0-96.0); PLATELET COUNT, AUTOMATED 421 10^3/uL (150-450); RED BLOOD COUNT 2.29 10^6/uL (4.00-5.40); WHITE BLOOD COUNT 15.2 10^3/uL (4.0-10.0)
[2023-05-08 18:15] LABS: CALCIUM LEVEL 7.4 MG/DL (8.3-10.6); CREATININE FOR GFR 1.2 MG/DL (0.55-1.30); GLOMERULAR FILTRATION RATE 47.1 (>39); POTASSIUM SERUM 4.2 MMOL/L (3.5-5.1)
[2023-05-08 18:26] LABS: HEMATOCRIT 20.9 % (36.0-47.0)
[2023-05-08 18:28] LABS: HEMOGLOBIN 6.6 g/dl (12.0-15.5)
== END ==
PROVIDERS: ATTEND Internal Medicine
DX: D64.9 Anemia, unspecified (principal)

== ENCOUNTER 2023-05-09 08:22 | Inpatient (IN) | payer MEDICARE, MEDICAID ==
[2023-05-09] VITALS (13 sets, daily range): BP systolic 93–122; BP diastolic 54–70; TEMP 96.6–98.9; O2SAT 93–100
[~2023-05-09] VITALS: Ht 134.6 cm; Wt 90.2 kg
[~2023-05-09 08:22] MED LIST changes: -ACET32TAB PO; -DICL100G10 TOP; -FLON1SPR NARES; -HYDR-3713 PO; -MM S100C PO; -NEUR300C PO; -POLY510P14 PO; -SENN-186 PO; -TORS100T PO; -TUMS500C PO
[2023-05-09] MEDS: NS 2,660 ML in IV 1 EA IV ONE (09:15)
[2023-05-09 09:16] LABS: BASO % 0.3 % (0.0-1.0); EOS # 0.4 10^3/uL (0.0-0.5); EOS % 2.8 % (0.0-3.0); LYMPH % 14.1 % (24.0-44.0); MEAN CORPUSCULAR HEMOGLOBIN 28.8 pg (27.0-33.0); MEAN CORPUSCULAR HGB CONC 32.3 g/dl (32.0-36.5); MEAN CORPUSCULAR VOLUME 89.2 fl (80.0-96.0); MONO # 1.2 10^3/uL (0.0-0.8); MONO % 8.5 % (2.0-8.0); NEUTROPHILS % 71.9 % (36.0-66.0); PLATELET COUNT, AUTOMATED 444 10^3/uL (150-450); RED BLOOD COUNT 2.22 10^6/uL (4.00-5.40)
[2023-05-09 09:25] LABS: HEMATOCRIT 19.8 % (36.0-47.0); HEMOGLOBIN 6.4 g/dl (12.0-15.5)
[2023-05-09 09:27] LABS: INR 2.62; PROTHROMBIN TIME 27.1 SECONDS (12.5-14.5)
[2023-05-09 09:39] LABS: ALBUMIN 1.5 G/DL (3.2-5.2); ALKALINE PHOSPHATASE 127 U/L (46-116); ALT/SGPT 12 U/L (7.0-40); AST/SGOT 21 U/L (<34); BILIRUBIN,DIRECT 0.2 MG/DL (<0.4); BILIRUBIN,TOTAL 0.3 MG/DL (0.3-1.2); BLOOD UREA NITROGEN 18 MG/DL (9-23); CALCIUM LEVEL 7.5 MG/DL (8.3-10.6); CARBON DIOXIDE LEVEL 28 MMOL/L (20-31); CHLORIDE LEVEL 96 MMOL/L (98-107); CK-MB VALUE MASS < 1.0 NG/ML (<3.6); CREATININE FOR GFR 1.11 MG/DL (0.55-1.30); GLOMERULAR FILTRATION RATE 51.6 (>39); GLUCOSE, FASTING 90 MG/DL (74-106); POTASSIUM SERUM 4.7 MMOL/L (3.5-5.1); SODIUM LEVEL 132 MMOL/L (136-145); TOTAL PROTEIN 5.7 G/DL (5.7-8.2)
[2023-05-09] MEDS: PIPERACILLIN/TAZOBACTAM SOD 4.5 GM in D5W MINI-BAG PLUS 50 ML IV ONE (09:39)
[2023-05-09] MEDS ORDERED: ISOVUE-370 76% 100ML VIAL As Ordered ONE (09:49)
[2023-05-09 10:29] LABS: AMYLASE < 20 U/L (30-118); CPK CREATINE PHOSPHOKINASE 45 U/L (34-145); MB/CK RELATIVE INDEX 2.22 (< OR =4); PROCALCITONIN >50.00 ng/ml
[2023-05-09 11:10] LABS: MAGNESIUM LEVEL 1.7 MG/DL (1.8-2.4)
[2023-05-09 11:14] LABS: FREE THYROXINE INDEX 3.7 % (1.3-4.8); T UPTAKE 70.5 % (22.5-37.0); THYROID STIMULATING HORMONE 2.377 uIU/ML (0.55-4.78); THYROXINE (T4) 5.2 UG/DL (4.5-10.9)
[2023-05-09] MEDS ORDERED: MED REC IN PROGRESS XX SCH (12:20)
[2023-05-09] MEDS ORDERED: VANCOMYCIN HCL 1,000 MG, VIAL MATE ADAPTER 1 EACH in D5W 250 ML IV ONE ×2 (12:55→14:00)
[2023-05-09] MEDS ORDERED: GLUCAGON INJ 1MG VIAL SC PRN (13:00)
[2023-05-09] MEDS ORDERED: GLUCOSE 4GM CHEW TABLET PO PRN (13:00)
[2023-05-09] MEDS ORDERED: DEXTROSE 50% 50ML SYRINGE IV PRN (13:00)
[2023-05-09] MEDS ORDERED: DICL100G10 TOP (13:16)
[2023-05-09] MEDS ORDERED: FLON1SPR NARES (13:16)
[2023-05-09] MEDS ORDERED: ELIQ5TAB PO (13:16)
[2023-05-09] MEDS ORDERED: NEUR300C PO (13:16)
[2023-05-09] MEDS ORDERED: FLEEENE12 PR (13:16)
[2023-05-09] MEDS ORDERED: MM S100C PO (13:16)
[2023-05-09] MEDS ORDERED: HYDR-3713 PO (13:16)
[2023-05-09] MEDS ORDERED: ACET32TAB PO (13:16)
[2023-05-09] MEDS ORDERED: ROCURONIUM BROMIDE 50MG/5ML VIAL As Ordered ONE (13:58)
[2023-05-09] MEDS ORDERED: ONDANSETRON 4MG 2ML VIAL As Ordered ONE (13:58)
[2023-05-09] MEDS ORDERED: MIDAZOLAM INJ 2MG/2ML VIAL As Ordered ONE (13:58)
[2023-05-09] MEDS ORDERED: fentaNYL 100 MCG/2 ML INJECTION As Ordered ONE (13:58)
[2023-05-09] MEDS ORDERED: ETOMIDATE INJ 20MG/10ML VIAL As Ordered ONE (13:58)
[2023-05-09] MEDS ORDERED: SUGAMMADEX SODIUM 500 MG/5 ML VIAL (BRIDION) As Ordered ONE (13:58)
[2023-05-09] MEDS ORDERED: propofoL 200 MG/20 ML VIAL As Ordered ONE (13:58)
[2023-05-09] MEDS ORDERED: LIDOCAINE 2% 100MG/5ML SDV (FOR ANES.) As Ordered ONE (13:58)
[2023-05-09] MEDS ORDERED: FLON27.5 NARES (14:03)
[2023-05-09] MEDS ORDERED: SENN-186 PO (14:03)
[2023-05-09] MEDS ORDERED: TORS100T PO (14:03)
[2023-05-09] MEDS ORDERED: METO1TAB87 PO (14:03)
[2023-05-09] MEDS ORDERED: POLY510P14 PO (14:03)
[2023-05-09] MEDS ORDERED: TUMS500C PO (14:12)
[2023-05-09] MEDS ORDERED: HOME MED LIST COMPLETE! XX SCH (14:15)
[2023-05-09] MEDS ORDERED: PHENYLephrine 500MCG 5ML (100MCG/ML) SYRINGE As Ordered ONE (14:38)
[2023-05-09] MEDS ORDERED: ePHEDrine SULFATE 25 MG/5 ML(5MG/ML) SYRINGE As Ordered ONE (14:38)
[2023-05-09] MEDS ORDERED: VASOPRESSIN INJ 20UNITS/ML 1ML VIAL As Ordered ONE (14:44)
[2023-05-09] MEDS ORDERED: ACETAMINOPHEN 1000MG 100ML IV BAG As Ordered ONE (14:59)
[2023-05-09] MEDS ORDERED: VANCOMYCIN HCL 750 MG, VIAL MATE ADAPTER 1 EACH in D5W 250 ML IV ONE (15:00)
[2023-05-09] MEDS ORDERED: PHENYLEPHRINE 10MG/ML 1ML VIAL As Ordered ONE (15:06)
[2023-05-09] MEDS ORDERED: fentaNYL 100 MCG/2 ML INJECTION IV PRN (15:55)
[2023-05-09] MEDS ORDERED: HYDROMORPHONE HCL 0.5 MG/ 0.5 ML SYRINGE IV PRN (15:55)
[2023-05-09] MEDS ORDERED: ONDANSETRON 4MG 2ML VIAL IV PRN (15:55)
[2023-05-09] MEDS ORDERED: PIPERACILLIN/TAZOBACTAM SOD 4.5 GM in D5W MINI-BAG PLUS 50 ML IV SCH (16:00)
[2023-05-09] MEDS: oxyCODONE 5MG TAB PO PRN (16:40)
[2023-05-09] MEDS: INSULIN LISPRO (NovoLOG) PER UNIT SC SCH (18:00)
[2023-05-09] MEDS: LR 1,000 ML IV SCH (18:22)
[2023-05-09] MEDS: VANCOMYCIN HCL 1,000 MG, VIAL MATE ADAPTER 1 EACH in D5W 250 ML IV ONE (18:33)
[2023-05-09 18:42] LABS: HEMATOCRIT 28.8 % (36.0-47.0)
[2023-05-09 18:46] LABS: HEMOGLOBIN 9.5 g/dl (12.0-15.5)
[2023-05-09] MEDS: SYMBICORT 160/4.5MCG INHALER 6GM INH SCH (20:03)
[2023-05-09] MEDS: VANCOMYCIN HCL 750 MG, VIAL MATE ADAPTER 1 EACH in D5W 250 ML IV ONE (20:12)
[2023-05-09] MEDS: METOPROLOL TART 12.5 MG PER 1/2 TAB PO SCH (21:00)
[2023-05-09] MEDS: GABAPENTIN 300 MG CAP PO SCH (21:27)
[2023-05-09] MEDS: PANTOPRAZOLE 40MG VIAL IV SCH (21:31)
[2023-05-09] MEDS: PIPERACILLIN/TAZOBACTAM SOD 4.5 GM in D5W MINI-BAG PLUS 50 ML IV SCH (21:38)
[2023-05-09] MEDS: CLINDAMYCIN 900 MG in IV 1 EA IV SCH (21:38)
[2023-05-09 23:13] LABS: HEMATOCRIT 24.7 % (36.0-47.0); HEMOGLOBIN 8.3 g/dl (12.0-15.5)
[2023-05-09] MEDS: MAG SULF 1GM/100ML (MAG RUN) 1 GM in IV 1 EA IV SCH (23:25)
[2023-05-10] VITALS (20 sets, daily range): BP systolic 72–143; BP diastolic 50–81; TEMP 96.8–97.9; O2SAT 97–100
[2023-05-10] MEDS: MORPHINE 2 MG/ML 1ML VIAL IV PRN (05:07)
[2023-05-10] MEDS: LEVOTHYROXINE 100MCG TABLET (0.1MG) PO SCH (06:00)
[2023-05-10 09:29] LABS: HEMATOCRIT 22.8 % (36.0-47.0); HEMOGLOBIN 7.1 g/dl (12.0-15.5); MEAN CORPUSCULAR HEMOGLOBIN 29.7 pg (27.0-33.0); MEAN CORPUSCULAR HGB CONC 31.1 g/dl (32.0-36.5); MEAN CORPUSCULAR VOLUME 95.4 fl (80.0-96.0); PLATELET COUNT, AUTOMATED 387 10^3/uL (150-450); RED BLOOD COUNT 2.39 10^6/uL (4.00-5.40); WHITE BLOOD COUNT 18.9 10^3/uL (4.0-10.0)
[2023-05-10 10:12] LABS: VANCOMYCIN RANDOM 17.2 UG/ML
[2023-05-10 10:13] LABS: CALCIUM LEVEL 6.9 MG/DL (8.3-10.6); CREATININE FOR GFR 1.06 MG/DL (0.55-1.30); GLOMERULAR FILTRATION RATE 54.4 (>39); MAGNESIUM LEVEL 2.2 MG/DL (1.8-2.4); POTASSIUM SERUM 4.2 MMOL/L (3.5-5.1)
[2023-05-10] MEDS: VANCOMYCIN HCL 500 MG in D5W MINI-BAG PLUS 100 ML IV SCH (11:54)
[2023-05-10] MEDS ORDERED: VANCOMYCIN HCL 1,000 MG, VIAL MATE ADAPTER 1 EACH in D5W 250 ML IV SCH (12:00)
[2023-05-10] MEDS: VANCOMYCIN HCL 750 MG, VIAL MATE ADAPTER 1 EACH in D5W 250 ML IV SCH (12:00)
[2023-05-10 18:03] LABS: HEMATOCRIT 26.3 % (36.0-47.0); HEMOGLOBIN 8.9 g/dl (12.0-15.5)
[2023-05-10] MEDS ORDERED: cloNIDine 0.1MG TABLET PO PRN (18:35)
[2023-05-10] MEDS ORDERED: ESCITALOPRAM OXALATE 10 MG TAB (LEXAPRO) PO SCH (21:00)
[2023-05-10] MEDS: ESCITALOPRAM OXALATE 10 MG TAB (LEXAPRO) PO SCH (21:46)
[2023-05-11] VITALS (19 sets, daily range): BP systolic 82–104; BP diastolic 52–64; TEMP 97–98; O2SAT 92–100
[2023-05-11 08:51] LABS: HEMATOCRIT 24.7 % (36.0-47.0); HEMOGLOBIN 7.9 g/dl (12.0-15.5); MEAN CORPUSCULAR HEMOGLOBIN 30.4 pg (27.0-33.0); PLATELET COUNT, AUTOMATED 288 10^3/uL (150-450)
[2023-05-11 09:16] LABS: ANISOCYTOSIS 1+; ATYPICAL LYMPH 2 % (0-5); LYMPHOCYTES 18 % (16-44); METAMYELOCYTES 2 % (0-0); MONOCYTES 7 % (0-5); MYELOCYTES 1 % (0-0); NEUTROPHILS 67 % (28-66); PLATELET ESTIMATE NORMAL (NORMAL); POLYCHROMASIA 1+
[2023-05-11 09:17] LABS: HELMET CELLS 1+; TEAR DROP CELLS 1+; TOXIC GRANULATION 1+; TOXIC VACUOLATION 1+
[2023-05-11 09:18] LABS: CALCIUM LEVEL 6.8 MG/DL (8.3-10.6); CREATININE FOR GFR 1.34 MG/DL (0.55-1.30); GLOMERULAR FILTRATION RATE 41.5 (>39); POTASSIUM SERUM 4.7 MMOL/L (3.5-5.1); VANCOMYCIN RANDOM 22.9 UG/ML
[2023-05-11] MEDS ORDERED: VANCOMYCIN INTERMITTENT/PULSE DOSING BY CLINICAL PHARMACIST PER DOSING PROTOCOL XX SCH (10:10)
[2023-05-11] MEDS: ACETAMINOPHEN TAB 650MG DOSE (2X325MG) PO ONE (14:03)
[2023-05-11] MEDS: MIDODRINE 5 MG TAB PO SCH (14:03)
[2023-05-11] MEDS: PIPERACILLIN/TAZOBACTAM SOD 4.5 GM in D5W MINI-BAG PLUS 50 ML IV SCH (16:30)
[2023-05-12] VITALS (16 sets, daily range): BP systolic 92–104; BP diastolic 60–62; TEMP 96.8–98.6; O2SAT 95–100
[2023-05-12] MEDS: ACETAMINOPHEN TAB 650MG DOSE (2X325MG) PO PRN (01:06)
[2023-05-12] MEDS: ONDANSETRON 4MG 2ML VIAL IV PRN (03:03)
[2023-05-12] MEDS: PROMETHAZINE 25 MG TAB PO ONE (04:56)
[2023-05-12] MEDS: MORPHINE 2 MG/ML 1ML VIAL IV ONE (06:14)
[2023-05-12 06:31] LABS: BASO % 0.2 % (0.0-1.0); EOS # 0.2 10^3/uL (0.0-0.5); EOS % 0.6 % (0.0-3.0); LYMPH # 3.1 10^3/uL (1.5-5.0); LYMPH % 12.3 % (24.0-44.0); MEAN CORPUSCULAR HEMOGLOBIN 30.2 pg (27.0-33.0); MEAN CORPUSCULAR HGB CONC 34.2 g/dl (32.0-36.5); MEAN CORPUSCULAR VOLUME 88.5 fl (80.0-96.0); MONO # 1.9 10^3/uL (0.0-0.8); MONO % 7.8 % (2.0-8.0); NEUTROPHILS % 68.6 % (36.0-66.0); RED BLOOD COUNT 1.82 10^6/uL (4.00-5.40); WHITE BLOOD COUNT 24.8 10^3/uL (4.0-10.0)
[2023-05-12 06:45] LABS: VANCOMYCIN RANDOM 20.8 UG/ML
[2023-05-12 06:47] LABS: HEMATOCRIT 16.1 % (36.0-47.0); HEMOGLOBIN 5.5 g/dl (12.0-15.5); PLATELET COUNT, AUTOMATED 445 10^3/uL (150-450)
[2023-05-12 06:56] LABS: ALBUMIN 1.3 G/DL (3.2-5.2); ALKALINE PHOSPHATASE 99 U/L (46-116); ALT/SGPT 10 U/L (7.0-40); AST/SGOT 21 U/L (<34); BILIRUBIN,DIRECT 0.2 MG/DL (<0.4); BILIRUBIN,TOTAL 0.3 MG/DL (0.3-1.2); BLOOD UREA NITROGEN 24 MG/DL (9-23); CALCIUM LEVEL 6.9 MG/DL (8.3-10.6); CARBON DIOXIDE LEVEL 21 MMOL/L (20-31); CHLORIDE LEVEL 92 MMOL/L (98-107); CREATININE FOR GFR 1.75 MG/DL (0.55-1.30); GLOMERULAR FILTRATION RATE 30.5 (>39); GLUCOSE, FASTING 128 MG/DL (74-106); POTASSIUM SERUM 4.2 MMOL/L (3.5-5.1); SODIUM LEVEL 125 MMOL/L (136-145); TOTAL PROTEIN 4.7 G/DL (5.7-8.2)
[2023-05-12 08:11] LABS: PROCALCITONIN >50.00 ng/ml
[2023-05-12] MEDS ORDERED: FUROSEMIDE 40MG/4ML VIAL IV ONE (11:00)
[2023-05-12] MEDS ORDERED: FUROSEMIDE 20MG/2ML VIAL IV ONE (12:00)
[2023-05-12] MEDS ORDERED: SCOPOLAMINE 1MG TRANSDERMAL PATCH TOP PRN (12:05)
[2023-05-12] MEDS: MORPHINE 10MG/0.5ML ORAL CONCENTRATE SOLUTION U/D SL PRN (14:06)
[2023-05-12] MEDS: LORazepam 1 MG TAB PO PRN (14:47)
[2023-05-12] MEDS ORDERED: MORPHINE 4 MG/ML 1ML VIAL IV PRN (18:30)
== END 2023-05-12 19:03 | disposition expired | DRG 856 ==
LOC: M ED 08:22 → EDBD 08:22 → M ED INP 12:54 → M PCU 17:10 → M MSPAV 05-12 16:32
PROVIDERS: ADMIT Internal Medicine; ATTEND Internal Medicine
PROC: 0JD80ZZ Extraction of Abdomen Subcutaneous Tissue and Fascia, Open Approach (ICD-10-PCS; principal; 2023-05-09 13:30)
DX: T81.42XA Infection following a procedure, deep incisional surgical site, initial encounter (principal); A41.9 Sepsis, unspecified organism; R65.21 Severe sepsis with septic shock; D62 Acute posthemorrhagic anemia; I50.32 Chronic diastolic (congestive) heart failure; N17.9 Acute kidney failure, unspecified; E87.1 Hypo-osmolality and hyponatremia; L03.311 Cellulitis of abdominal wall; E46 Unspecified protein-calorie malnutrition; I96 Gangrene, not elsewhere classified; E87.20 Acidosis, unspecified; Z66 Do not resuscitate; I48.0 Paroxysmal atrial fibrillation; Z86.711 Personal history of pulmonary embolism; J45.909 Unspecified asthma, uncomplicated; F32.A Depression, unspecified; G47.33 Obstructive sleep apnea (adult) (pediatric); E03.9 Hypothyroidism, unspecified; Z79.01 Long term (current) use of anticoagulants; Z79.890 Hormone replacement therapy; Z79.899 Other long term (current) drug therapy; Z20.822 Contact with and (suspected) exposure to COVID-19; F70 Mild intellectual disabilities; I46.9 Cardiac arrest, cause unspecified

== ENCOUNTER → 2023-05-12 | Outpatient (REF) | payer MEDICARE, MEDICAID ==
[~2023-05-12] MED LIST changes: +ACET32TAB PO; +DICL100G10 TOP; +FLON1SPR NARES; +HYDR-3713 PO; +MM S100C PO; +NEUR300C PO; +POLY510P14 PO; +SENN-186 PO; +TORS100T PO; +TUMS500C PO
== END ==
PROVIDERS: ATTEND Physician Assistant
DX: Z53.8 Procedure and treatment not carried out for other reasons (principal)

== ENCOUNTER → 2023-05-13 | Outpatient (REF) | payer MEDICARE, MEDICAID | LOC: EEVIPCON | PROVIDERS: ATTEND Internal Medicine | DX: E11.9 Type 2 diabetes mellitus without complications (principal); I10 Essential (primary) hypertension; D50.9 Iron deficiency anemia, unspecified; Z53.8 Procedure and treatment not carried out for other reasons ==